=== PATIENT | male | born 1960 | race Caucasian/White ===

== ENCOUNTER 2016-12-08 15:27 | Inpatient (IN) | payer MEDICAID, OTHER ==
[~2016-12-08 15:27] MED LIST: ANCEF VIAL 1 GM ONE; DIPRIVAN VIAL ONE; EPHEDRINE SULFATE INJ ONE; LR 1000 ML IV 1,000 ML IV ONE; MORPHINE SULFATE INJ 4 MG ONE; NEOSTIGMINE INJ ONE; NORCURON INJ 10 MG VIAL ONE; NS 50 ML IV 50 ML IV ONE; QUELICIN (OR ANECTINE) ONE; REGLAN INJ 10 MG VIAL ONE; ROBINUL ONE; SUPRANE IN ONE; VERSED ONE; XYLOCAINE 2 % (PLAIN) ONE; ZOFRAN INJ 4 MG VIAL ONE
[2016-12-08] MEDS ORDERED: ANCEF VIAL 1 GM 1 GM in NS 50 ML IV + SPIKE MINIBAG* 50 ML IV ONE (15:30)
[2016-12-08] MEDS ORDERED: ZOFRAN INJ 4 MG VIAL IVP ONE (15:32)
[2016-12-08] MEDS ORDERED: MORPHINE SULFATE INJ 4 MG IVP ONE (15:32)
[2016-12-08] MEDS ORDERED: LR 1000 ML IV 1,000 ML IV ONE ×2 (15:32→17:48)
[2016-12-08 15:44] VITALS: BMI 18.1
--- NOTE | 2016-12-08 15:48 | RAD ---
HISTORY: Severe injury, blunt and penetrating trauma Study: Left hand three view Comparison: None Findings: There is a 4.9 by 0.5 centimeter radiopaque foreign body in the soft tissues overlying the distal 2n d metacarpal and base of the 3rd proximal phalanx. There is an open comminuted fracture of the dista l shaft of the 2nd metacarpal around which there appear to be scattered soft tissue foreign bodies. The 2nd digit is held in flexion at the MCP and PIP joints. Ligamentous integrity should be clinical ly evaluated. There is a comminuted intra-articular fracture of the shaft, diametaphyseal region, an d metaphysis of the 3rd proximal phalanx. There is marked dorsal soft tissue swelling overlying the wrist. Within this area there is some soft tissue gas likely related to a laceration. The carpal bon es appear intact. There appears to be a tiny avulsion of the tip of the ulnar-styloid. IMPRESSION: Comminuted fractures of the distal 2nd metacarpal and proximal and mid 3rd proximal phalanx Scattered tiny radiopaque foreign bodies in the soft tissues surrounding the 2nd and 3rd MCP joints with a 4.9 x 0.5 centimeter large linear soft tissue foreign body in the soft tissues dorsal to that area. Soft tissue swelling and laceration dorsally over the wrist Question of a tiny avulsion fracture versus foreign body adjacent to the tip of the ulnar-styloid Reported By:
[2016-12-08] MEDS ORDERED: DILAUDID INJ ONE ×2 (15:50→19:48)
[2016-12-08] MEDS ORDERED: DILAUDID INJ IVP ONE (15:50)
[2016-12-08] MEDS ORDERED: ADACEL TDaP IM ONE ×2 (15:50→15:54)
--- NOTE | 2016-12-08 16:32 | RAD ---
HISTORY: Preoperative evaluation Study: Single view chest Comparison: Chest CT 05/06/2016 Findings: Chronic sternotomy changes are present. The lungs are clear without consolidation, effusion or pneum othorax. The cardiac and mediastinal contours are within normal limits. The soft tissues are unrema rkable. IMPRESSION: 1. No acute cardiopulmonary abnormality. Reported By:
[2016-12-08 16:37] LABS: BASOPHILS % (AUTO) 0.6 % (0.2-1.0); EOSINOPHILS # (AUTO) 0.2 x10^3/uL (0.0-0.2); EOSINOPHILS % (AUTO) 3.5 % (0.9-2.9); HEMATOCRIT 31.7 % (42.0-54.0); HEMOGLOBIN 10.7 g/dL (13.5-18.0); LYMPHOCYTES # (AUTO) 1.4 X10^3/uL (1.3-2.9); LYMPHOCYTES % (AUTO) 25.7 % (21.0-51.0); MEAN CORPUSCULAR HEMOGLOBIN 33.2 pg (27.0-34.0); MEAN CORPUSCULAR HGB CONC 33.7 g/dL (33.0-35.0); MEAN CORPUSCULAR VOLUME 98.3 fL (80.0-100.0); MEAN PLATELET VOLUME 7.3 fL (7.4-11.0); MONOCYTES # (AUTO) 0.5 x10^3/uL (0.3-0.8); MONOCYTES % (AUTO) 8.1 % (0.0-13.0); NEUTROPHILS # (AUTO) 3.5 x10^3/uL (2.2-4.8); NEUTROPHILS % (AUTO) 62.1 % (42.0-75.0); PLATELET COUNT 226 X10^3/uL (150.0-450.0); RED BLOOD COUNT 3.22 X10^6/uL (4.7-6.0); WHITE BLOOD COUNT 5.6 X10^3/uL (3.6-10.0)
[2016-12-08] MEDS ORDERED: FENTANYL INJ 250 mcg ONE (16:38)
[2016-12-08 16:48] LABS: ALANINE AMINOTRANSFERASE 24 Units/L (12-78); ALBUMIN 3.7 g/dL (3.4-5.0); ALKALINE PHOSPHATASE 107 Units/L (46-116); ASPARTATE AMINO TRANSFERASE 28 Units/L (15-37); BLOOD UREA NITROGEN 24 mg/dL (7-18); CALCIUM 8.4 mg/dL (8.5-10.1); CARBON DIOXIDE 23.7 mmol/L (21-32); CHLORIDE 106 mmol/L (98-107); COR NA(FOR HYPERGLY) 140 mmol/L (136-145); GLUCOSE 118 mg/dL (65-99); SODIUM 140 mmol/L (136-145); TOTAL PROTEIN 7.5 g/dL (6.4-8.2); eGFR BLACK RACES > 60 (>60); eGFR NON BLACK RACES > 60 (>60)
[2016-12-08] MEDS ORDERED: PHENERGAN INJ 25 MG IVP PRN (16:48)
[2016-12-08] MEDS ORDERED: BENADRYL INJ 50 MG VIAL IVP PRN (16:48)
[2016-12-08] MEDS ORDERED: ZOFRAN INJ 4 MG VIAL IVP PRN (16:48)
[2016-12-08] MEDS ORDERED: REGLAN INJ 10 MG VIAL IVP PRN (16:48)
[2016-12-08] MEDS ORDERED: NS IRRIGATION 1000 ML 1,000 ML with BACITRACIN VIAL 50,000 UNT IR ONE ×2 (17:35)
[2016-12-08 17:39] LABS: ERYTHROCYTE SEDIMENTATION RATE 34 MM/HOUR (0-15)
[2016-12-08] MEDS ORDERED: NS IRRIGATION 3000 ML 3,000 ML with BACITRACIN VIAL 50,000 UNT IR ONE ×4 (17:40→17:50)
[2016-12-08] MEDS ORDERED: ANCEF VIAL 1 GM ONE (17:48)
[2016-12-08] MEDS ORDERED: NS 50 ML IV + SPIKE MINIBAG* 50 ML IV ONE (17:48)
[2016-12-08] MEDS ORDERED: NS IRRIGATION 1000 ML 1,000 ML IR ONE (17:55)
[2016-12-08] MEDS ORDERED: BACTROBAN OINT ONE (18:31)
[2016-12-08] MEDS ORDERED: HYDROGEN PEROXIDE 3% ONE (19:27)
[2016-12-08] MEDS: DILAUDID INJ IVP PRN ×4 (19:50→20:05)
[2016-12-08] MEDS: ANCEF VIAL 1 GM 1 GM in NS 50 ML IV + SPIKE MINIBAG* 50 ML IV SCH (21:33)
[2016-12-08] MEDS: LR 1000 ML IV 1,000 ML IV SCH (21:33)
[2016-12-08] MEDS: CLEOCIN 600 MG IV PREMIX 600 MG/50 ML BAG IV SCH ×2 (21:33→23:31)
[2016-12-08] MEDS: FLAGYL IV PREMIX 500 MG BAG 500 MG/100 ML BAG IV SCH ×2 (21:34→23:31)
[2016-12-08] MEDS: MORPHINE SULFATE INJ 2 MG IVP PRN (21:45)
[2016-12-09] MEDS: DILAUDID INJ IVP PRN ×4 (00:14→20:24)
[2016-12-09] MEDS: MORPHINE SULFATE INJ 2 MG IVP PRN ×2 (03:15→06:55)
[2016-12-09] MEDS: ANCEF VIAL 1 GM 1 GM in NS 50 ML IV + SPIKE MINIBAG* 50 ML IV SCH ×5 (03:16→20:22)
[2016-12-09] MEDS: FLAGYL IV PREMIX 500 MG BAG 500 MG/100 ML BAG IV SCH ×3 (06:11→22:52)
[2016-12-09] MEDS: CLEOCIN 600 MG IV PREMIX 600 MG/50 ML BAG IV SCH ×3 (06:11→22:52)
--- NOTE | 2016-12-09 06:47 | RAD ---
HISTORY: Follow up fracture Study: Left hand three views Comparison: December 08, 2016 3:36 p.m. Findings: The previously noted fracture of the 3rd proximal phalanx has undergone open reduction and internal fixation with 2 pins. Position and alignment is nearly anatomic. The previously noted fracture of th e 2nd metacarpal has undergone open reduction and internal fixation with 3 pins. Position and alignm ent is nearly anatomic. The previously noted soft tissue foreign bodies are no longer identified. Th e limb is splinted. IMPRESSION: Postoperative changes as above Reported By:
[2016-12-09] MEDS: ROXICODONE TAB 15 MG PO PRN ×2 (07:37→15:50)
[2016-12-09] MEDS: NORCO 10/325 TAB PO PRN (11:15)
[2016-12-09] MEDS: LR 1000 ML IV 1,000 ML IV SCH ×2 (11:16→23:19)
[2016-12-09] MEDS ORDERED: MORPHINE SULFATE INJ 2 MG IVP PRN (11:52)
--- NOTE | 2016-12-09 14:03 | PCM.PROG ---
Progress Note - Progress Note for Day of Date: 12/09/16 (POD 1) - Subjective Subjective: he is doing okay. He has been having issues with pain. Patient has a chronic opioid medication intake. Patient is currently on scheduled morphine, Dilaudid and also oxycodone. Denies any fever chills or rigors. Check x-rays were reviewed. It shows satisfactory alignment. The finger tip looked nice and vascular. Refill is good. The primary culture report is no growth. Currently he is on IV Ancef, clindamycin and better resolved. We'll plan on having him on PICC line tomorrow. I again discussed with him as well as his about possability osteomyelitis and need for long-term IV medications. We will also have him under Jam[facility] and Ifrah Carrillo, his regular primary care doctors. - Past Medical Family Social History Allergies: Allergies No Known Drug Allergy Allergy (Verified 11/12/12 16:27) - Vital Signs and I&O's Vital Signs: Temperature 98.0 F Pulse Rate [Right Radial] 57 Pulse Rate 63 Respiratory Rate 22 Blood Pressure [Right Arm] 150/65 Blood Pressure 124/68 O2 Sat by Pulse Oximetry 96 Intake and Output: Intake & Output 12/07/16 12/08/16 12/09/16 12/10/16 11:59 11:59 11:59 11:59 Intake Total 270 Output Total 5850 Balance -5580 - Physical Exam Oriented: Normal, Time, Person, Place, Not Oriented, Unable to test, Other Respiratory: Normal Cardiovascular: Normal Musculoskeletal: Hand (hand in splint. Good capillary refill of the middle and index finger. Still has some reduced sensation noted in those fingers. No soak H dressing seen.) Mood Description: Calm Speech Pattern: Clear, Appropriate - Laboratory and Diagnostics Result Diagrams: 12/08/16 16:25 12/08/16 16:25 Labs: 12/08/16 18:06 Hand - Left Gram Stain - Final 12/08/16 18:06 Hand - Left Wound Culture - Preliminary Laboratory WBC 5.6 X10^3/uL (3.6-10.0) 12/08/16 16:25 RBC 3.22 X10^6/uL (4.7-6.0) L 12/08/16 16:25 Hgb 10.7 g/dL (13.5-18.0) L 12/08/16 16:25 Hct 31.7 % (42.0-54.0) L 12/08/16 16:25 MCV 98.3 fL (80.0-100.0) 12/08/16 16:25 MCH 33.2 pg (27.0-34.0) 12/08/16 16:25 MCHC 33.7 g/dL (33.0-35.0) 12/08/16 16:25 RDW 13.0 % (11.6-16.5) 12/08/16 16:25 Plt Count 226 X10^3/uL (150.0-450.0) 12/08/16 16:25 MPV 7.3 fL (7.4-11.0) L 12/08/16 16:25 Neut % 62.1 % (42.0-75.0) 12/08/16 16:25 Lymph % 25.7 % (21.0-51.0) 12/08/16 16:25 Hayes % 8.1 % (0.0-13.0) 12/08/16 16:25 Eos % 3.5 % (0.9-2.9) H 12/08/16 16:25 Baso % 0.6 % (0.2-1.0) 12/08/16 16:25 Neut # 3.5 x10^3/uL (2.2-4.8) 12/08/16 16:25 Lymph # 1.4 X10^3/uL (1.3-2.9) 12/08/16 16:25 Hayes # 0.5 x10^3/uL (0.3-0.8) 12/08/16 16:25 Eos # 0.2 x10^3/uL (0.0-0.2) 12/08/16 16:25 Baso # 0.0 X10^3/uL (0.0-0.1) 12/08/16 16:25 Absolute Nucleated RBC 0.0 /100WBC 12/08/16 16:25 ESR 34 MM/HOUR (0-15) H 12/08/16 16:25 Sodium 140 mmol/L (136-145) 12/08/16 16:25 Corrected Sodium 140 mmol/L (136-145) 12/08/16 16:25 Potassium 4.2 mmol/L (3.5-5.1) 12/08/16 16:25 Chloride 106 mmol/L (98-107) 12/08/16 16:25 Carbon Dioxide 23.7 mmol/L (21-32) 12/08/16 16:25 BUN 24 mg/dL (7-18) H 12/08/16 16:25 Creatinine 1.10 mg/dL (0.70-1.30) 12/08/16 16:25 Est GFR (MDRD) Af Amer > 60 (>60) 12/08/16 16:25 Est GFR (MDRD) Non-Af > 60 (>60) 12/08/16 16:25 Glucose 118 mg/dL (65-99) H 12/08/16 16:25 Calcium 8.4 mg/dL (8.5-10.1) L 12/08/16 16:25 Corrected Calcium TNP 12/08/16 16:25 Total Bilirubin 0.30 mg/dL (0.2-1.0) 12/08/16 16:25 AST 28 Units/L (15-37) 12/08/16 16:25 ALT 24 Units/L (12-78) 12/08/16 16:25 Alkaline Phosphatase 107 Units/L (46-116) 12/08/16 16:25 C-Reactive Protein 1.10 mg/L (0-3.0) 12/08/16 16:25 Total Protein 7.5 g/dL (6.4-8.2) 12/08/16 16:25 Albumin 3.7 g/dL (3.4-5.0) 12/08/16 16:25 Globulin 3.8 g/dL (2.5-4.5) 12/08/16 16:25 Albumin/Globulin Ratio 1.0 Ratio (1.1-2.1) L 12/08/16 16:25 - Plan (1) Open fracture of hand Status: Acute Qualifiers: Encounter type: subsequent encounter Laterality: left Fracture healing: F Plan: we will continue with IV antibiotics. He will T: 10 tomorrow. I will change dressing tomorrow. We will keep an eye on his flaps as well as his wound for any signs of infection. We will continue with pain medications for his pain management. (2) Injury of extensor tendon of left hand Status: Acute Qualifiers: Encounter type: E
[2016-12-09] MEDS: MORPHINE SULFATE INJ 4 MG IVP PRN ×2 (17:27→23:20)
--- NOTE | 2016-12-09 18:26 | PCM.PROG ---
Progress Note - Progress Note for Day of Date: 12/09/16 - Subjective Subjective: 56 WM ADMITTED AFTER TRAUMATIC HAND INJURY WITH DR GRANT REPAIRING IN THE OR. PT HAS PMH OF HTN, COPD AND OA. PLAN TO CONTINUE WITH POST OPERATIVE WOUND CARE AND PAIN CONTROL, WILL RESUME HOME BP MEDICATION AND SLEEP MEDICATION - Past Medical Family Social History Past Med/Fam/Surg Hx: No changes since H&P Allergies: Allergies No Known Drug Allergy Allergy (Verified 11/12/12 16:27) - Review of Systems ROS: No change since H&P - Vital Signs and I&O's Vital Signs: Temperature 98.4 F Pulse Rate [Right Radial] 58 Respiratory Rate 18 Blood Pressure [Right Arm] 158/72 O2 Sat by Pulse Oximetry 96 Intake and Output: Intake & Output 12/07/16 12/08/16 12/09/16 12/10/16 11:59 11:59 11:59 11:59 Intake Total 270 1180 Output Total 750 Balance -480 1180 - Physical Exam Oriented: Normal, Time, Person, Place, Not Oriented, Unable to test, Other Respiratory: Normal Cardiovascular: Normal Musculoskeletal: Right, Hand (hand in splint. Good capillary refill of the middle and index finger. Still has some reduced sensation noted in those fingers. No soak H dressing seen.), Back:Thoracic, Back:Lumbar Mood Description: Calm Speech Pattern: Clear, Appropriate - Laboratory and Diagnostics Result Diagrams: 12/08/16 16:25 12/08/16 16:25 Labs: Laboratory WBC 5.6 X10^3/uL (3.6-10.0) 12/08/16 16:25 RBC 3.22 X10^6/uL (4.7-6.0) L 12/08/16 16:25 Hgb 10.7 g/dL (13.5-18.0) L 12/08/16 16:25 Hct 31.7 % (42.0-54.0) L 12/08/16 16:25 MCV 98.3 fL (80.0-100.0) 12/08/16 16:25 MCH 33.2 pg (27.0-34.0) 12/08/16 16:25 MCHC 33.7 g/dL (33.0-35.0) 12/08/16 16:25 RDW 13.0 % (11.6-16.5) 12/08/16 16:25 Plt Count 226 X10^3/uL (150.0-450.0) 12/08/16 16:25 MPV 7.3 fL (7.4-11.0) L 12/08/16 16:25 Neut % 62.1 % (42.0-75.0) 12/08/16 16:25 Lymph % 25.7 % (21.0-51.0) 12/08/16 16:25 [place] % 8.1 % (0.0-13.0) 12/08/16 16:25 Eos % 3.5 % (0.9-2.9) H 12/08/16 16:25 Baso % 0.6 % (0.2-1.0) 12/08/16 16:25 Neut # 3.5 x10^3/uL (2.2-4.8) 12/08/16 16:25 Lymph # 1.4 X10^3/uL (1.3-2.9) 12/08/16 16:25 [place] # 0.5 x10^3/uL (0.3-0.8) 12/08/16 16:25 Eos # 0.2 x10^3/uL (0.0-0.2) 12/08/16 16:25 Baso # 0.0 X10^3/uL (0.0-0.1) 12/08/16 16:25 Absolute Nucleated RBC 0.0 /100WBC 12/08/16 16:25 ESR 34 MM/HOUR (0-15) H 12/08/16 16:25 Sodium 140 mmol/L (136-145) 12/08/16 16:25 Corrected Sodium 140 mmol/L (136-145) 12/08/16 16:25 Potassium 4.2 mmol/L (3.5-5.1) 12/08/16 16:25 Chloride 106 mmol/L (98-107) 12/08/16 16:25 Carbon Dioxide 23.7 mmol/L (21-32) 12/08/16 16:25 BUN 24 mg/dL (7-18) H 12/08/16 16:25 Creatinine 1.10 mg/dL (0.70-1.30) 12/08/16 16:25 Est GFR (MDRD) Af Amer > 60 (>60) 12/08/16 16:25 Est GFR (MDRD) Non-Af > 60 (>60) 12/08/16 16:25 Glucose 118 mg/dL (65-99) H 12/08/16 16:25 Calcium 8.4 mg/dL (8.5-10.1) L 12/08/16 16:25 Corrected Calcium TNP 12/08/16 16:25 Total Bilirubin 0.30 mg/dL (0.2-1.0) 12/08/16 16:25 AST 28 Units/L (15-37) 12/08/16 16:25 ALT 24 Units/L (12-78) 12/08/16 16:25 Alkaline Phosphatase 107 Units/L (46-116) 12/08/16 16:25 C-Reactive Protein 1.10 mg/L (0-3.0) 12/08/16 16:25 Total Protein 7.5 g/dL (6.4-8.2) 12/08/16 16:25 Albumin 3.7 g/dL (3.4-5.0) 12/08/16 16:25 Globulin 3.8 g/dL (2.5-4.5) 12/08/16 16:25 Albumin/Globulin Ratio 1.0 Ratio (1.1-2.1) L 12/08/16 16:25 - Plan (1) Hypertension Status: Acute Qualifiers: Hypertension type: H Plan: RESUME HOME MEDS, MONITOR BP (2) Osteoarthritis Status: Acute Qualifiers: Osteoarthritis location: O Osteoarthritis type: O Spinal region: S Spinal osteoarthritis complication: S Laterality: L Plan: CURRENTLY ON IV PAIN MEDICATION POST OP. WILL HOLD PO HOME PAIN MEDS AT THIS TIME. MONITOR PAIN (3) Open fracture of hand Status: Acute Qualifiers: Encounter type: subsequent encounter Laterality: left Fracture healing: F Plan: CONTINUE DR STOVER PLAN OF CARE
[2016-12-09] MEDS ORDERED: DESYREL PO PRN (19:09)
[2016-12-09] MEDS: NICODERM PATCH 21 MG/24 HR TD SCH (19:30)
[2016-12-09] MEDS: LOPRESSOR TAB 25 MG PO SCH (20:24)
[2016-12-09] MEDS: ZOCOR TAB 40 MG PO SCH (20:24)
[2016-12-09] MEDS: ZESTRIL TAB 10 MG PO SCH (20:34)
[2016-12-09] MEDS ORDERED: [UNRECOGNIZED DRUG - OTHER] PO SCH (21:00)
[2016-12-10] MEDS: ROXICODONE TAB 15 MG PO PRN ×2 (01:12→11:08)
[2016-12-10] MEDS: ANCEF VIAL 1 GM 1 GM in NS 50 ML IV + SPIKE MINIBAG* 50 ML IV SCH ×4 (03:12→20:44)
[2016-12-10] MEDS: DILAUDID INJ IVP PRN ×2 (03:13→14:07)
[2016-12-10] MEDS: CLEOCIN 600 MG IV PREMIX 600 MG/50 ML BAG IV SCH ×3 (05:13→21:05)
[2016-12-10] MEDS: FLAGYL IV PREMIX 500 MG BAG 500 MG/100 ML BAG IV SCH ×3 (05:13→21:05)
[2016-12-10] MEDS: MORPHINE SULFATE INJ 4 MG IVP PRN ×2 (05:14→13:03)
[2016-12-10] MEDS: LOPRESSOR TAB 25 MG PO SCH ×2 (08:23→20:44)
[2016-12-10] MEDS: NICODERM PATCH 21 MG/24 HR TD SCH (08:23)
[2016-12-10] MEDS: ZESTRIL TAB 10 MG PO SCH (08:24)
[2016-12-10] MEDS: ASPIRIN EC 81 MG PO SCH (08:24)
[2016-12-10] MEDS ORDERED: XYLOCAINE 1 % (PLAIN) ONE (09:19)
[2016-12-10] MEDS ORDERED: BACTROBAN OINT TOP ONE (09:54)
[2016-12-10] MEDS: NORCO 10/325 TAB PO PRN (10:07)
--- NOTE | 2016-12-10 10:11 | DR.UPDATE ---
H&P Update History and Physical Update: History and Physical reviewed and patient examined. Changes noted: NO Yes with the following:agree with h&p from dr kirkpatrick and will place PICC. Procedures (ALL) - Central Line Placement PCM.CLCO: written consent Time out performed: Yes Patient placed pm monitor/pulse ox: Yes MD prep: mask, gown, gloves, other Centrial line prep: chlorhexidine scrub, sterile drapes applied Local anesthsia used: lidocane 1% Ultrasound used for placement: Yes Central line lumen ininserted: double Post procedure: good blood return, all ports aspirated, flushed,capped, sterile dressing applied Post procedure xray: tip oc catheter in good position Patient tolerated procedure: Yes Complications: none
[2016-12-10 10:23] LABS: BASOPHILS % (AUTO) 0.2 % (0.2-1.0); EOSINOPHILS % (AUTO) 0.3 % (0.9-2.9); HEMOGLOBIN 9.4 g/dL (13.5-18.0); LYMPHOCYTES # (AUTO) 0.6 X10^3/uL (1.3-2.9); MEAN CORPUSCULAR HEMOGLOBIN 34.1 pg (27.0-34.0); MEAN CORPUSCULAR HGB CONC 34.8 g/dL (33.0-35.0); MEAN PLATELET VOLUME 7.8 fL (7.4-11.0); MONOCYTES # (AUTO) 0.7 x10^3/uL (0.3-0.8); MONOCYTES % (AUTO) 8.3 % (0.0-13.0); NEUTROPHILS # (AUTO) 6.6 x10^3/uL (2.2-4.8); NEUTROPHILS % (AUTO) 83.2 % (42.0-75.0); PLATELET COUNT 184 X10^3/uL (150.0-450.0); RED BLOOD COUNT 2.75 X10^6/uL (4.7-6.0); RED CELL DISTRIBUTION WIDTH 13.1 % (11.6-16.5)
--- NOTE | 2016-12-10 10:40 | RAD ---
HISTORY: PICC placement Study: Chest one view Comparison: December 08, 2016 Findings: There is a right-sided PICC line present with its tip in the superior vena cava. The patient is stat us post median sternotomy and CABG. The heart is within normal limits in size. The lungs are mildly hyperinflated but clear. The bony thorax is unremarkable. IMPRESSION: Right PICC tip superior vena cava, no pneumothorax. Lungs hyperinflated but clear Reported By:
[2016-12-10 11:02] LABS: ALANINE AMINOTRANSFERASE 19 Units/L (12-78); ALBUMIN 3.1 g/dL (3.4-5.0); ALKALINE PHOSPHATASE 105 Units/L (46-116); ASPARTATE AMINO TRANSFERASE 24 Units/L (15-37); BLOOD UREA NITROGEN 8 mg/dL (7-18); CALCIUM 8.3 mg/dL (8.5-10.1); CARBON DIOXIDE 27.8 mmol/L (21-32); CHLORIDE 103 mmol/L (98-107); COR NA(FOR HYPERGLY) 139 mmol/L (136-145); CREATININE 0.79 mg/dL (0.70-1.30); GLUCOSE 141 mg/dL (65-99); SODIUM 138 mmol/L (136-145); TOTAL PROTEIN 6.8 g/dL (6.4-8.2); eGFR BLACK RACES > 60 (>60); eGFR NON BLACK RACES > 60 (>60)
--- NOTE | 2016-12-10 11:14 | RAD ---
HISTORY: Post PICC line insertion #2. Study: Chest one view Comparison: December 10, 2016 at 10:32 a.m. Findings: The trachea is midline. The cardiac silhouette is unremarkable. Median sternotomy wires are again n oted. There has been interval adjustment of right-sided PICC line catheter , the tip of which now pr ojects over the right atrium, approximately 4.5 cm below the cavoatrial junction. The lungs are aura r without focal infiltrate or effusion. The bony thorax is unremarkable. IMPRESSION: 1. Right-sided PICC line catheter in place, the tip of which projects over the right atrium approxi mately 4.5 cm above the cavoatrial junction. Reported By:
[2016-12-10 12:05] LABS: ERYTHROCYTE SEDIMENTATION RATE 47 MM/HOUR (0-15)
[2016-12-10] MEDS ORDERED: STERILE WATER IRRIGATION IR ONE (13:45)
[2016-12-10] MEDS ORDERED: PHARMACY CONSULT - DOSE _____ XX SCH (15:00)
--- NOTE | 2016-12-10 15:18 | PCM.PROG ---
Progress Note - Progress Note for Day of Date: 12/10/16 (postoperative day 2) - Subjective Subjective: postoperative day 2. His pain seemed to be better controlled at this time. He says Roxicodone helps him a lot. He is taking 20 mg 3 times a day. He also gets morphine and Dilaudid for breakthrough pain. Vital stable. Afebrile. No complaints of chills and rigors. Currently on IV antibiotics, Ancef, metronidazole, ciprofloxacin. Culture no growth at day 2. His labs show that the white count, ESR are up trending at this time. wound was examined today. No redness noted. No induration noted. No discharge noted. Sterile dressing was reapplied. He did get a PICC line today. Patient wants to know whether he can go home. - Past Medical Family Social History Past Med/Fam/Surg Hx: No changes since H&P Allergies: Allergies No Known Drug Allergy Allergy (Verified 11/12/12 16:27) - Review of Systems ROS: No change since H&P - Vital Signs and I&O's Vital Signs: Temperature 98.3 F Pulse Rate [Right Radial] 58 Respiratory Rate 18 Blood Pressure [Right Arm] 151/72 O2 Sat by Pulse Oximetry 93 Intake and Output: Intake & Output 12/08/16 12/09/16 12/10/16 12/11/16 11:59 11:59 11:59 11:59 Intake Total 270 2877 480 Output Total 750 Balance -480 2877 480 - Physical Exam Oriented: Normal, Time, Person, Place, Not Oriented, Unable to test, Other Respiratory: Normal Cardiovascular: Normal Skin: Wound (no redness, induration, or discharge noted on the surgical wound.) Musculoskeletal: Right, Hand (Refill good. Sensation still used but intact. He is able to move the thumb and ring finger and little finger.), Back:Thoracic , Back:Lumbar Mood Description: Calm Speech Pattern: Clear, Appropriate - Laboratory and Diagnostics Result Diagrams: 12/10/16 10:05 12/10/16 10:05 Labs: Laboratory WBC 8.0 X10^3/uL (3.6-10.0) 12/10/16 10:05 RBC 2.75 X10^6/uL (4.7-6.0) L 12/10/16 10:05 Hgb 9.4 g/dL (13.5-18.0) L 12/10/16 10:05 Hct 27.0 % (42.0-54.0) L 12/10/16 10:05 MCV 98.0 fL (80.0-100.0) 12/10/16 10:05 MCH 34.1 pg (27.0-34.0) H 12/10/16 10:05 MCHC 34.8 g/dL (33.0-35.0) 12/10/16 10:05 RDW 13.1 % (11.6-16.5) 12/10/16 10:05 Plt Count 184 X10^3/uL (150.0-450.0) 12/10/16 10:05 MPV 7.8 fL (7.4-11.0) 12/10/16 10:05 Neut % 83.2 % (42.0-75.0) H 12/10/16 10:05 Lymph % 8.0 % (21.0-51.0) L 12/10/16 10:05 Gray % 8.3 % (0.0-13.0) 12/10/16 10:05 Eos % 0.3 % (0.9-2.9) L 12/10/16 10:05 Baso % 0.2 % (0.2-1.0) 12/10/16 10:05 Neut # 6.6 x10^3/uL (2.2-4.8) H 12/10/16 10:05 Lymph # 0.6 X10^3/uL (1.3-2.9) L 12/10/16 10:05 Gray # 0.7 x10^3/uL (0.3-0.8) 12/10/16 10:05 Eos # 0.0 x10^3/uL (0.0-0.2) 12/10/16 10:05 Baso # 0.0 X10^3/uL (0.0-0.1) 12/10/16 10:05 Absolute Nucleated RBC 0.0 /100WBC 12/10/16 10:05 ESR 47 MM/HOUR (0-15) H 12/10/16 10:05 Sodium 138 mmol/L (136-145) 12/10/16 10:05 Corrected Sodium 139 mmol/L (136-145) 12/10/16 10:05 Potassium 3.9 mmol/L (3.5-5.1) 12/10/16 10:05 Chloride 103 mmol/L (98-107) 12/10/16 10:05 Carbon Dioxide 27.8 mmol/L (21-32) 12/10/16 10:05 BUN 8 mg/dL (7-18) 12/10/16 10:05 Creatinine 0.79 mg/dL (0.70-1.30) 12/10/16 10:05 Est GFR (MDRD) Af Amer > 60 (>60) 12/10/16 10:05 Est GFR (MDRD) Non-Af > 60 (>60) 12/10/16 10:05 Glucose 141 mg/dL (65-99) H 12/10/16 10:05 Calcium 8.3 mg/dL (8.5-10.1) L 12/10/16 10:05 Corrected Calcium 9.0 mg/dL (8.5-10.1) 12/10/16 10:05 Total Bilirubin 0.30 mg/dL (0.2-1.0) 12/10/16 10:05 AST 24 Units/L (15-37) 12/10/16 10:05 ALT 19 Units/L (12-78) 12/10/16 10:05 Alkaline Phosphatase 105 Units/L (46-116) 12/10/16 10:05 C-Reactive Protein 49.20 mg/L (0-3.0) H 12/10/16 10:05 Total Protein 6.8 g/dL (6.4-8.2) 12/10/16 10:05 Albumin 3.1 g/dL (3.4-5.0) L 12/10/16 10:05 Globulin 3.7 g/dL (2.5-4.5) 12/10/16 10:05 Albumin/Globulin Ratio 0.8 Ratio (1.1-2.1) L 12/10/16 10:05 - Plan (1) Open fracture of hand Status: Acute Qualifiers: Encounter type: initial encounter Laterality: left Fracture healing: F Qualified Code(s): S62.92XB - Unspecified fracture of left wrist and hand, initial encounter for open fracture Plan: we will keep him only on PO mouth pain meds anticipating his discharge tomorrow. We will also initiate gabapentin for him. I discussed in detail with him as well as his that he might need a repeat debridement with or without removal of all implants in case his labs or clinically he doesn't do well. He is currently on 3 antibiotics. He has PICC line. Tomorrow depending on the final culture and sensitivity we will place him on a definite antibiotic. Explained to them that even with repeated debridement and long- term IV antibiotics possibly a chronic osteoarthritis is high in injury like this which was done by "farm injury. (2) Injury of extensor tendon of left hand Status: Acute Qualifiers: Encounter type: E
[2016-12-10] MEDS ORDERED: DILAUDID PO ONE (17:05)
[2016-12-10] MEDS: DILAUDID PO PRN (17:06)
--- NOTE | 2016-12-10 18:02 | PCM.PROG ---
Progress Note - Progress Note for Day of Date: 12/10/16 - Subjective Subjective: postoperative day 2. His pain seemed to be better controlled at this time. He says Roxicodone helps him a lot. He is taking 20 mg 3 times a day. He also gets morphine and Dilaudid for breakthrough pain. Vital stable. Afebrile. No complaints of chills and rigors. Currently on IV antibiotics, Ancef, metronidazole, ciprofloxacin. Culture no growth at day 2. His labs show that the white count, ESR are up trending at this time. wound was examined today. No redness noted. No induration noted. No discharge noted. Sterile dressing was reapplied per Dr Newman. He did get a PICC line today. - Past Medical Family Social History Past Med/Fam/Surg Hx: No changes since H&P Allergies: Allergies No Known Drug Allergy Allergy (Verified 11/12/12 16:27) - Review of Systems ROS: No change since H&P - Vital Signs and I&O's Vital Signs: Temperature 97.9 F Pulse Rate [Right Radial] 60 Respiratory Rate 18 Blood Pressure [Right Arm] 139/71 O2 Sat by Pulse Oximetry 94 Intake and Output: Intake & Output 12/08/16 12/09/16 12/10/16 12/11/16 11:59 11:59 11:59 11:59 Intake Total 270 2877 480 Output Total 750 Balance -480 2877 480 - Physical Exam Oriented: Normal, Time, Person, Place, Not Oriented, Unable to test, Other Respiratory: Normal Cardiovascular: Normal Skin: Wound (no redness, induration, or discharge noted on the surgical wound.) Musculoskeletal: Right, Hand (Refill good. Sensation still used but intact. He is able to move the thumb and ring finger and little finger.), Back:Thoracic , Back:Lumbar Mood Description: Calm Speech Pattern: Clear, Appropriate - Laboratory and Diagnostics Result Diagrams: 12/10/16 10:05 12/10/16 10:05 Labs: Laboratory WBC 8.0 X10^3/uL (3.6-10.0) 12/10/16 10:05 RBC 2.75 X10^6/uL (4.7-6.0) L 12/10/16 10:05 Hgb 9.4 g/dL (13.5-18.0) L 12/10/16 10:05 Hct 27.0 % (42.0-54.0) L 12/10/16 10:05 MCV 98.0 fL (80.0-100.0) 12/10/16 10:05 MCH 34.1 pg (27.0-34.0) H 12/10/16 10:05 MCHC 34.8 g/dL (33.0-35.0) 12/10/16 10:05 RDW 13.1 % (11.6-16.5) 12/10/16 10:05 Plt Count 184 X10^3/uL (150.0-450.0) 12/10/16 10:05 MPV 7.8 fL (7.4-11.0) 12/10/16 10:05 Neut % 83.2 % (42.0-75.0) H 12/10/16 10:05 Lymph % 8.0 % (21.0-51.0) L 12/10/16 10:05 Moore % 8.3 % (0.0-13.0) 12/10/16 10:05 Eos % 0.3 % (0.9-2.9) L 12/10/16 10:05 Baso % 0.2 % (0.2-1.0) 12/10/16 10:05 Neut # 6.6 x10^3/uL (2.2-4.8) H 12/10/16 10:05 Lymph # 0.6 X10^3/uL (1.3-2.9) L 12/10/16 10:05 Moore # 0.7 x10^3/uL (0.3-0.8) 12/10/16 10:05 Eos # 0.0 x10^3/uL (0.0-0.2) 12/10/16 10:05 Baso # 0.0 X10^3/uL (0.0-0.1) 12/10/16 10:05 Absolute Nucleated RBC 0.0 /100WBC 12/10/16 10:05 ESR 47 MM/HOUR (0-15) H 12/10/16 10:05 Sodium 138 mmol/L (136-145) 12/10/16 10:05 Corrected Sodium 139 mmol/L (136-145) 12/10/16 10:05 Potassium 3.9 mmol/L (3.5-5.1) 12/10/16 10:05 Chloride 103 mmol/L (98-107) 12/10/16 10:05 Carbon Dioxide 27.8 mmol/L (21-32) 12/10/16 10:05 BUN 8 mg/dL (7-18) 12/10/16 10:05 Creatinine 0.79 mg/dL (0.70-1.30) 12/10/16 10:05 Est GFR (MDRD) Af Amer > 60 (>60) 12/10/16 10:05 Est GFR (MDRD) Non-Af > 60 (>60) 12/10/16 10:05 Glucose 141 mg/dL (65-99) H 12/10/16 10:05 Calcium 8.3 mg/dL (8.5-10.1) L 12/10/16 10:05 Corrected Calcium 9.0 mg/dL (8.5-10.1) 12/10/16 10:05 Total Bilirubin 0.30 mg/dL (0.2-1.0) 12/10/16 10:05 AST 24 Units/L (15-37) 12/10/16 10:05 ALT 19 Units/L (12-78) 12/10/16 10:05 Alkaline Phosphatase 105 Units/L (46-116) 12/10/16 10:05 C-Reactive Protein 49.20 mg/L (0-3.0) H 12/10/16 10:05 Total Protein 6.8 g/dL (6.4-8.2) 12/10/16 10:05 Albumin 3.1 g/dL (3.4-5.0) L 12/10/16 10:05 Globulin 3.7 g/dL (2.5-4.5) 12/10/16 10:05 Albumin/Globulin Ratio 0.8 Ratio (1.1-2.1) L 12/10/16 10:05 - Plan (1) Hypertension Status: Acute Qualifiers: Hypertension type: H Plan: RESUME HOME MEDS, MONITOR BP (2) Osteoarthritis Status: Acute Qualifiers: Osteoarthritis location: O Osteoarthritis type: O Spinal region: S Spinal osteoarthritis complication: S Laterality: L Plan: CURRENTLY ON IV PAIN MEDICATION POST OP. WILL HOLD PO HOME PAIN MEDS AT THIS TIME, DISCUSSED WITH [facility]. MONITOR PAIN (3) Open fracture of hand Status: Acute Qualifiers: Encounter type: initial encounter Laterality: left Fracture healing: F Qualified Code(s): S62.92XB - Unspecified fracture of left wrist and hand, initial encounter for open fracture Plan: we will keep him only on PO mouth pain meds anticipating his discharge tomorrow. We will also initiate gabapentin for him. I discussed in detail with him as well as his that he might need a repeat debridement with or without removal of all implants in case his labs or clinically he doesn't do well. He is currently on 3 antibiotics. He has PICC line. Tomorrow depending on the final culture and sensitivity we will place him on a definite antibiotic. Explained to them that even with repeated debridement and long- term IV antibiotics possibly a chronic osteoarthritis is high in injury like this which was done by "farm injury.
[2016-12-10] MEDS: ROXICODONE TAB 15 MG PO SCH ×2 (19:25→23:55)
[2016-12-10] MEDS: ZOCOR TAB 40 MG PO SCH (20:44)
[2016-12-10] MEDS: LR 1000 ML IV 1,000 ML IV SCH (20:44)
[2016-12-10] MEDS: LYRICA CAP 75 MG PO SCH (20:44)
[2016-12-11] MEDS ORDERED: DILAUDID PO ONE ×3 (02:41→15:52)
[2016-12-11] MEDS: DILAUDID PO PRN ×3 (02:43→15:51)
[2016-12-11] MEDS: ANCEF VIAL 1 GM 1 GM in NS 50 ML IV + SPIKE MINIBAG* 50 ML IV SCH ×3 (02:44→14:07)
[2016-12-11 05:13] LABS: BLOOD UREA NITROGEN 11 mg/dL (7-18); CALCIUM 8.2 mg/dL (8.5-10.1); CARBON DIOXIDE 26.3 mmol/L (21-32); CHLORIDE 105 mmol/L (98-107); CREATININE 0.71 mg/dL (0.70-1.30); GLUCOSE 102 mg/dL (65-99); SODIUM 140 mmol/L (136-145); eGFR BLACK RACES > 60 (>60); eGFR NON BLACK RACES > 60 (>60)
[2016-12-11 05:25] LABS: BASOPHILS % (AUTO) 0.3 % (0.2-1.0); EOSINOPHILS # (AUTO) 0.1 x10^3/uL (0.0-0.2); EOSINOPHILS % (AUTO) 1.4 % (0.9-2.9); HEMATOCRIT 26.8 % (42.0-54.0); LYMPHOCYTES % (AUTO) 14.4 % (21.0-51.0); MEAN CORPUSCULAR HEMOGLOBIN 33.5 pg (27.0-34.0); MEAN CORPUSCULAR HGB CONC 33.7 g/dL (33.0-35.0); MEAN CORPUSCULAR VOLUME 99.5 fL (80.0-100.0); MEAN PLATELET VOLUME 8.1 fL (7.4-11.0); MONOCYTES # (AUTO) 0.6 x10^3/uL (0.3-0.8); MONOCYTES % (AUTO) 9.2 % (0.0-13.0); NEUTROPHILS # (AUTO) 5.2 x10^3/uL (2.2-4.8); NEUTROPHILS % (AUTO) 74.7 % (42.0-75.0); PLATELET COUNT 186 X10^3/uL (150.0-450.0); RED CELL DISTRIBUTION WIDTH 13.2 % (11.6-16.5)
[2016-12-11 05:54] LABS: ERYTHROCYTE SEDIMENTATION RATE 50 MM/HOUR (0-15)
[2016-12-11] MEDS: CLEOCIN 600 MG IV PREMIX 600 MG/50 ML BAG IV SCH ×2 (06:02→13:04)
[2016-12-11] MEDS: FLAGYL IV PREMIX 500 MG BAG 500 MG/100 ML BAG IV SCH ×2 (06:02→13:05)
[2016-12-11] MEDS: ROXICODONE TAB 15 MG PO SCH ×2 (06:02→14:07)
[2016-12-11] MEDS: LR 1000 ML IV 1,000 ML IV SCH (06:06)
[2016-12-11] MEDS: NICODERM PATCH 21 MG/24 HR TD SCH (08:28)
[2016-12-11] MEDS: LYRICA CAP 75 MG PO SCH (08:29)
[2016-12-11] MEDS: ZESTRIL TAB 10 MG PO SCH (08:29)
[2016-12-11] MEDS: LOPRESSOR TAB 25 MG PO SCH (08:29)
[2016-12-11] MEDS: ASPIRIN EC 81 MG PO SCH (08:30)
[2016-12-11] MEDS: NORCO 10/325 TAB PO PRN ×2 (10:59→15:10)
--- NOTE | 2016-12-11 15:33 | PCM.PROG ---
Progress Note - Progress Note for Day of Date: 12/11/16 (postop day 3) - Subjective Subjective: postoperative day 3. his pain seemed to be very well controlled this time. He reports he had a very good sleep S tonight. He has not had any IV narcotic since yesterday. His pain has been controlled only with oral pain meds at this time. Vital stable. Afebrile. No complaints of chills and rigors. Currently on IV antibiotics, Ancef, metronidazole, ciprofloxacin. Culture no growth at day 3. His labs show that the white count, ESR are down trending at this time. we'll plan on sending him home today. We will get his antibiotic filled out so that he refuses number of times he has to come to the hospital for perioperative antibiotic. We'll also get an home health involved. Instructions given to him regarding the pain meds and antibiotic usage. We' ll repeat his labs for the next 3 days. He will contact the office on Thursday. - Past Medical Family Social History Past Med/Fam/Surg Hx: No changes since H&P Allergies: Allergies No Known Drug Allergy Allergy (Verified 11/12/12 16:27) - Review of Systems ROS: No change since H&P - Vital Signs and I&O's Vital Signs: Temperature 98.5 F Pulse Rate [Right Radial] 52 Respiratory Rate 20 Blood Pressure [Right Arm] 151/70 O2 Sat by Pulse Oximetry 94 Intake and Output: Intake & Output 12/09/16 12/10/16 12/11/16 12/12/16 11:59 11:59 11:59 11:59 Intake Total 270 2877 2315 720 Output Total 750 Balance -480 2877 2315 720 - Physical Exam Oriented: Normal, Time, Person, Place, Not Oriented, Unable to test, Other Respiratory: Normal Cardiovascular: Normal Skin: Wound (no redness, induration, or discharge noted on the surgical wound.) Musculoskeletal: Right, Hand (Refill good. Sensation still used but intact. He is able to move the thumb and ring finger and little finger.), Back:Thoracic , Back:Lumbar Mood Description: Calm Speech Pattern: Clear, Appropriate - Laboratory and Diagnostics Result Diagrams: 12/11/16 03:35 12/11/16 03:35 Labs: Laboratory WBC 7.0 X10^3/uL (3.6-10.0) 12/11/16 03:35 RBC 2.70 X10^6/uL (4.7-6.0) L 12/11/16 03:35 Hgb 9.0 g/dL (13.5-18.0) L 12/11/16 03:35 Hct 26.8 % (42.0-54.0) L 12/11/16 03:35 MCV 99.5 fL (80.0-100.0) 12/11/16 03:35 MCH 33.5 pg (27.0-34.0) 12/11/16 03:35 MCHC 33.7 g/dL (33.0-35.0) 12/11/16 03:35 RDW 13.2 % (11.6-16.5) 12/11/16 03:35 Plt Count 186 X10^3/uL (150.0-450.0) 12/11/16 03:35 MPV 8.1 fL (7.4-11.0) 12/11/16 03:35 Neut % 74.7 % (42.0-75.0) 12/11/16 03:35 Lymph % 14.4 % (21.0-51.0) L 12/11/16 03:35 [place] % 9.2 % (0.0-13.0) 12/11/16 03:35 Eos % 1.4 % (0.9-2.9) 12/11/16 03:35 Baso % 0.3 % (0.2-1.0) 12/11/16 03:35 Neut # 5.2 x10^3/uL (2.2-4.8) H 12/11/16 03:35 Lymph # 1.0 X10^3/uL (1.3-2.9) L 12/11/16 03:35 [place] # 0.6 x10^3/uL (0.3-0.8) 12/11/16 03:35 Eos # 0.1 x10^3/uL (0.0-0.2) 12/11/16 03:35 Baso # 0.0 X10^3/uL (0.0-0.1) 12/11/16 03:35 Absolute Nucleated RBC 0.1 /100WBC 12/11/16 03:35 ESR 50 MM/HOUR (0-15) H 12/11/16 03:35 Sodium 140 mmol/L (136-145) 12/11/16 03:35 Corrected Sodium TNP 12/11/16 03:35 Potassium 4.0 mmol/L (3.5-5.1) 12/11/16 03:35 Chloride 105 mmol/L (98-107) 12/11/16 03:35 Carbon Dioxide 26.3 mmol/L (21-32) 12/11/16 03:35 BUN 11 mg/dL (7-18) 12/11/16 03:35 Creatinine 0.71 mg/dL (0.70-1.30) 12/11/16 03:35 Est GFR (MDRD) Af Amer > 60 (>60) 12/11/16 03:35 Est GFR (MDRD) Non-Af > 60 (>60) 12/11/16 03:35 Glucose 102 mg/dL (65-99) H 12/11/16 03:35 Calcium 8.2 mg/dL (8.5-10.1) L 12/11/16 03:35 Corrected Calcium 9.0 mg/dL (8.5-10.1) 12/10/16 10:05 Total Bilirubin 0.30 mg/dL (0.2-1.0) 12/10/16 10:05 AST 24 Units/L (15-37) 12/10/16 10:05 ALT 19 Units/L (12-78) 12/10/16 10:05 Alkaline Phosphatase 105 Units/L (46-116) 12/10/16 10:05 C-Reactive Protein 49.20 mg/L (0-3.0) H 12/10/16 10:05 Total Protein 6.8 g/dL (6.4-8.2) 12/10/16 10:05 Albumin 3.1 g/dL (3.4-5.0) L 12/10/16 10:05 Globulin 3.7 g/dL (2.5-4.5) 12/10/16 10:05 Albumin/Globulin Ratio 0.8 Ratio (1.1-2.1) L 12/10/16 10:05 - Plan (1) Open fracture of hand Status: Acute Qualifiers: Encounter type: initial encounter Laterality: left Fracture healing: F Qualified Code(s): S62.92XB - Unspecified fracture of left wrist and hand, initial encounter for open fracture Plan: continue with the oxycodone, Lyrica, Dilaudid for breakthrough pain. Continue with IV antibiotics as prescribed. No extrinsic dressing. Get regular labs. Return to the office on Thursday. (2) Injury of extensor tendon of left hand Status: Acute Qualifiers: Encounter type: E
[2016-12-11 16:07] VITALS: BP 137/65
[2016-12-11] MEDS ORDERED: [UNRECOGNIZED DRUG - OTHER] PO SCH (21:00)
[2016-12-11] MEDS ORDERED: NIASPAN ER TAB 500 MG PO SCH (21:00)
[2016-12-12] MEDS ORDERED: FLAGYL IV PREMIX 500 MG BAG 500 MG/100 ML BAG IV SCH (08:00)
[2016-12-12] MEDS ORDERED: CLEOCIN 600 MG IV PREMIX 600 MG/50 ML BAG IV SCH (08:00)
[2016-12-12] MEDS ORDERED: ROCEPHIN VIAL 2 GM 2 GM in NS 50 ML IV + SPIKE MINIBAG* 50 ML IV SCH (09:00)
== END 2016-12-11 16:25 | disposition home or self-care (01) | DRG 513 ==
LOC: SURG1 15:27 → MED/SURG 20:30 → SURG1 20:40 → MED/SURG 20:40 → SURG1 12-09 15:13 → MED/SURG 12-09 15:13
PROVIDERS: ADMIT Internal Medicine; ATTEND Orthopaedic Surgery
PROC: 0LQ80ZZ Repair Left Hand Tendon, Open Approach (ICD-10-PCS; 2016-12-08)
PROC: 3E0334Z Introduction of Serum, Toxoid and Vaccine into Peripheral Vein, Percutaneous Approach (ICD-10-PCS; 2016-12-08)
PROC: 0PSV04Z Reposition Left Finger Phalanx with Internal Fixation Device, Open Approach (ICD-10-PCS; principal; 2016-12-08 16:30)
PROC: 0PSQ04Z Reposition Left Metacarpal with Internal Fixation Device, Open Approach (ICD-10-PCS; 2016-12-08 16:30)
PROC: 02HV33Z Insertion of Infusion Device into Superior Vena Cava, Percutaneous Approach (ICD-10-PCS; 2016-12-10)
DX: S62.39 Other fracture of other metacarpal bone (principal); S62.618 Displaced fracture of proximal phalanx of other finger; I10 Essential (primary) hypertension; Z23 Encounter for immunization; Y92.89 Other specified places as the place of occurrence of the external cause; W31.2XXA Contact with powered woodworking and forming machines, initial encounter; M15.8 Other polyosteoarthritis; I87.2 Venous insufficiency (chronic) (peripheral); R94.31 Abnormal electrocardiogram [ECG] [EKG]
CPT/HCPCS: 29125; 36415; 71010; 73130; 76000; 80048; 80053; 85025; 85652; 86140; 87070; 87075; 87205; 90471; 93005; 93010; 96365; 96374; 96375; 99284; A4216; A4217; A4222; S0030; J0077; J0330; J0690; J1170; J2001; J2250; J2270; J2405; J2710; J2765; J3010; J3490; J7120

== ENCOUNTER → 2016-12-24 | Outpatient (CLI) | payer OTHER ==
[2016-12-13 21:28] VITALS: BP 128/61
--- NOTE | 2016-12-24 14:54 | RAD ---
HISTORY: Follow up fracture Study: Left hand three view Comparison: December 08, 2016 Findings: Once again noted there is an intra-articular fracture of the base of the 3rd proximal phalanx status post reduction and fixation with 2 pins position alignment is unchanged. Once again noted is a frac ture of the 2nd metacarpal distally which is undergone reduction and fixation with 3 pins. Position alignment is unchanged. No obvious healing is present. The limb is splinted. IMPRESSION: No significant change from the prior examination Reported By:
== END ==
LOC: RAD 14:26
PROVIDERS: ATTEND Orthopaedic Surgery
DX: Z79.899 Other long term (current) drug therapy (principal); S62.391B Other fracture of second metacarpal bone, left hand, initial encounter for open fracture; S62.613B Displaced fracture of proximal phalanx of left middle finger, initial encounter for open fracture; X58.XXXA Exposure to other specified factors, initial encounter; Z98.890 Other specified postprocedural states
CPT/HCPCS: 73130

== ENCOUNTER → 2016-12-27 | Outpatient (CLI) | payer OTHER ==
[2016-12-13 21:28] VITALS: BP 128/61
[~2016-12-27] MED LIST changes: -ANCEF VIAL 1 GM ONE; -DIPRIVAN VIAL ONE; -EPHEDRINE SULFATE INJ ONE; -LR 1000 ML IV 1,000 ML IV ONE; -MORPHINE SULFATE INJ 4 MG ONE; -NEOSTIGMINE INJ ONE; -NORCURON INJ 10 MG VIAL ONE; +NS 50 ML IV + SPIKE MINIBAG* 50 ML IV ONE; -NS 50 ML IV 50 ML IV ONE; -QUELICIN (OR ANECTINE) ONE; -REGLAN INJ 10 MG VIAL ONE; -ROBINUL ONE; +ROCEPHIN VIAL 2 GM ONE; -SUPRANE IN ONE; -VERSED ONE; -XYLOCAINE 2 % (PLAIN) ONE; -ZOFRAN INJ 4 MG VIAL ONE
[2016-12-27 09:41] LABS: CRYPTOSPORIDIUM PARVUM ANTIGEN NEGATIVE (NEGATIVE); GIARDIA LAMBLIA ANTIGEN NEGATIVE (NEGATIVE)
== END ==
LOC: LAB 06:43
PROVIDERS: ATTEND Nurse Practitioner Family
DX: K52.89 Other specified noninfective gastroenteritis and colitis (principal); Z79.899 Other long term (current) drug therapy; S62.331B Displaced fracture of neck of second metacarpal bone, left hand, initial encounter for open fracture; S62.613B Displaced fracture of proximal phalanx of left middle finger, initial encounter for open fracture; X58.XXXA Exposure to other specified factors, initial encounter; Z98.890 Other specified postprocedural states
CPT/HCPCS: 87045; 87205; 87328; 87329; 87336; 87493; 87899; J0696

== ENCOUNTER → 2016-12-31 | Outpatient (CLI) | payer OTHER ==
[2016-12-13 21:28] VITALS: BP 128/61
--- NOTE | 2016-12-31 15:13 | RAD ---
Left hand, three views Indication: Followup fracture Comparison: 12/24/2016 Findings: There is stable K-wire fixation of the index finger metacarpal and long finger proximal ph alangeal fractures. The bony alignment remains essentially anatomic. No significant healing is seen, although evaluation of fine bony detail is limited by superimposed cast material. Impression: No significant change from prior. Reported By:
== END ==
LOC: RAD 13:31
PROVIDERS: ATTEND Orthopaedic Surgery
DX: Z01.818 Encounter for other preprocedural examination (principal); Z79.899 Other long term (current) drug therapy; S62.331B Displaced fracture of neck of second metacarpal bone, left hand, initial encounter for open fracture; S62.613B Displaced fracture of proximal phalanx of left middle finger, initial encounter for open fracture; X58.XXXA Exposure to other specified factors, initial encounter; Z98.890 Other specified postprocedural states
CPT/HCPCS: 73130

== ENCOUNTER 2017-01-03 06:45 | Emergency (ER) | payer OTHER ==
[2016-12-13 21:28] VITALS: BP 128/61
[2017-01-03] MEDS ORDERED: ROCEPHIN VIAL 2 GM ONE (06:52)
[2017-01-03] MEDS ORDERED: CLEOCIN VIAL 600 MG ONE (06:52)
[2017-01-03] MEDS ORDERED: NS 50 ML IV + SPIKE MINIBAG* 50 ML IV ONE (06:53)
[2017-01-03] MEDS ORDERED: NS 50 ML IV 50 ML IV ONE (06:55)
[2017-01-03 07:20] VITALS: BMI 17.1
[2017-01-03] MEDS ORDERED: CLEOCIN 600 MG IV PREMIX 600 MG/50 ML BAG IV ONE (07:20)
[2017-01-03] MEDS ORDERED: ROCEPHIN VIAL 2 GM 2 GM in NS 50 ML IV + SPIKE MINIBAG* 50 ML IV ONE (07:20)
== END 2017-01-03 07:57 | disposition home or self-care (01) ==
LOC: OUTPT REF 06:45
DX: Z79.899 Other long term (current) drug therapy (principal); S62.331B Displaced fracture of neck of second metacarpal bone, left hand, initial encounter for open fracture; S62.613B Displaced fracture of proximal phalanx of left middle finger, initial encounter for open fracture; X58.XXXA Exposure to other specified factors, initial encounter; Z98.890 Other specified postprocedural states
CPT/HCPCS: 96365; 96374; 96375; J0077; J0696; S0077

== ENCOUNTER → 2017-01-14 | Outpatient (CLI) | payer OTHER ==
[2016-12-13 21:28] VITALS: BP 128/61
[2017-01-14 10:20] LABS: BASOPHILS % (AUTO) 0.7 % (0.2-1.0); EOSINOPHILS # (AUTO) 0.1 x10^3/uL (0.0-0.2); EOSINOPHILS % (AUTO) 1.9 % (0.9-2.9); HEMATOCRIT 34.4 % (42.0-54.0); HEMOGLOBIN 11.6 g/dL (13.5-18.0); LYMPHOCYTES # (AUTO) 1.5 X10^3/uL (1.3-2.9); LYMPHOCYTES % (AUTO) 22.4 % (21.0-51.0); MEAN CORPUSCULAR HEMOGLOBIN 31.8 pg (27.0-34.0); MEAN CORPUSCULAR HGB CONC 33.6 g/dL (33.0-35.0); MEAN CORPUSCULAR VOLUME 94.6 fL (80.0-100.0); MEAN PLATELET VOLUME 7.2 fL (7.4-11.0); MONOCYTES # (AUTO) 0.6 x10^3/uL (0.3-0.8); MONOCYTES % (AUTO) 8.9 % (0.0-13.0); NEUTROPHILS # (AUTO) 4.4 x10^3/uL (2.2-4.8); NEUTROPHILS % (AUTO) 66.1 % (42.0-75.0); PLATELET COUNT 284 X10^3/uL (150.0-450.0); RED BLOOD COUNT 3.64 X10^6/uL (4.7-6.0); RED CELL DISTRIBUTION WIDTH 13.5 % (11.6-16.5); WHITE BLOOD COUNT 6.6 X10^3/uL (3.6-10.0)
[2017-01-14 10:31] LABS: ALANINE AMINOTRANSFERASE 36 Units/L (12-78); ALKALINE PHOSPHATASE 97 Units/L (46-116); ASPARTATE AMINO TRANSFERASE 37 Units/L (15-37); BLOOD UREA NITROGEN 20 mg/dL (7-18); C-REACTIVE PROTEIN < 0.50 mg/L (0-3.0); CARBON DIOXIDE 26.8 mmol/L (21-32); CHLORIDE 104 mmol/L (98-107); COR NA(FOR HYPERGLY) 140 mmol/L (136-145); CREATININE 0.98 mg/dL (0.70-1.30); GLUCOSE 123 mg/dL (65-99); SODIUM 139 mmol/L (136-145); TOTAL PROTEIN 7.9 g/dL (6.4-8.2); eGFR BLACK RACES > 60 (>60); eGFR NON BLACK RACES > 60 (>60)
[2017-01-14 11:10] LABS: ERYTHROCYTE SEDIMENTATION RATE 15 MM/HOUR (0-15)
--- NOTE | 2017-01-14 16:31 | RAD ---
HAND RADIOGRAPHS CLINICAL HISTORY: 56-year-old male, followup for ORIF multiple left hand fractures. COMPARISON: Radiographs of left hand December 31, 2016. FINDINGS: 3 views of the left hand were obtained. These demonstrate interval removal of splint. Kirs chner wires in the 2nd metacarpal and 3rd metacarpal and proximal phalanx are unchanged. Unchanged a ppearance of comminuted fractures without significant interval callus formation. No new fracture. N o evidence of hardware malfunction. IMPRESSION: No significant interval callus formation about comminuted fractures involving the 2nd 3rd metacarpal s and proximal phalanx of the 3rd digit with My wires in place and unchanged. Reported By:
== END ==
LOC: LAB 09:50
PROVIDERS: ATTEND Orthopaedic Surgery
DX: Z01.818 Encounter for other preprocedural examination (principal); S62.331B Displaced fracture of neck of second metacarpal bone, left hand, initial encounter for open fracture; S62.331A Displaced fracture of neck of second metacarpal bone, left hand, initial encounter for closed fracture
CPT/HCPCS: 36415; 73130; 80053; 85025; 85652; 86140

== ENCOUNTER → 2017-01-21 | Outpatient (CLI) | payer OTHER ==
[2016-12-13 21:28] VITALS: BP 128/61
[2017-01-21 13:04] LABS: BASOPHILS % (AUTO) 0.7 % (0.2-1.0); EOSINOPHILS # (AUTO) 0.4 x10^3/uL (0.0-0.2); HEMATOCRIT 31.1 % (42.0-54.0); HEMOGLOBIN 10.4 g/dL (13.5-18.0); LYMPHOCYTES # (AUTO) 1.5 X10^3/uL (1.3-2.9); LYMPHOCYTES % (AUTO) 23.2 % (21.0-51.0); MEAN CORPUSCULAR HEMOGLOBIN 32.2 pg (27.0-34.0); MEAN CORPUSCULAR HGB CONC 33.4 g/dL (33.0-35.0); MEAN CORPUSCULAR VOLUME 96.5 fL (80.0-100.0); MONOCYTES # (AUTO) 0.7 x10^3/uL (0.3-0.8); NEUTROPHILS # (AUTO) 3.9 x10^3/uL (2.2-4.8); NEUTROPHILS % (AUTO) 59.1 % (42.0-75.0); PLATELET COUNT 231 X10^3/uL (150.0-450.0); RED BLOOD COUNT 3.23 X10^6/uL (4.7-6.0); RED CELL DISTRIBUTION WIDTH 13.8 % (11.6-16.5); WHITE BLOOD COUNT 6.6 X10^3/uL (3.6-10.0)
[2017-01-21 13:08] LABS: ALANINE AMINOTRANSFERASE 39 Units/L (12-78); ALBUMIN 3.8 g/dL (3.4-5.0); ALKALINE PHOSPHATASE 96 Units/L (46-116); ASPARTATE AMINO TRANSFERASE 31 Units/L (15-37); BLOOD UREA NITROGEN 24 mg/dL (7-18); CALCIUM 8.7 mg/dL (8.5-10.1); CARBON DIOXIDE 28.4 mmol/L (21-32); CHLORIDE 102 mmol/L (98-107); CREATININE 1.11 mg/dL (0.70-1.30); GLUCOSE 101 mg/dL (65-99); SODIUM 137 mmol/L (136-145); TOTAL PROTEIN 7.5 g/dL (6.4-8.2); eGFR BLACK RACES > 60 (>60); eGFR NON BLACK RACES > 60 (>60)
[2017-01-21 13:54] LABS: ERYTHROCYTE SEDIMENTATION RATE 20 MM/HOUR (0-15)
== END ==
LOC: LAB 12:35
PROVIDERS: ATTEND Orthopaedic Surgery
DX: Z01.818 Encounter for other preprocedural examination (principal); S62.331B Displaced fracture of neck of second metacarpal bone, left hand, initial encounter for open fracture; X58.XXXA Exposure to other specified factors, initial encounter
CPT/HCPCS: 36415; 80053; 85025; 85652; 86140

== ENCOUNTER 2017-02-18 08:18 | Outpatient (CLI) | payer OTHER ==
[2016-12-13 21:28] VITALS: BP 128/61
--- NOTE | 2017-02-18 09:17 | RAD ---
Examination: X-rays of the left hand. Clinical history: Laceration of extensor muscle, surgery on 2nd and 3rd digits 10 weeks ago. Technique: Three views of the left hand were obtained. Comparison: 01/14/2017. Findings: There is a comminuted fracture of the base of the proximal phalanx of the 3rd finger which is stable in position. K-wires internally fixating the fracture have now been removed. Minimal callus formati on and periosteal reaction is noted at the fracture site. A comminuted fracture of the distal 2nd metacarpal bone, internally fixated with K-wires is stable i n position, with no appreciable callus formation or periosteal reaction noted at the fracture site. No new bony or soft tissue abnormality is noted. Impression: 1. Fractures of the 2nd metacarpal bone and the proximal phalanx of the 3rd finger, as described abo ve. Reported By:
[2017-02-18 09:24] LABS: BASOPHILS % (AUTO) 0.6 % (0.2-1.0); EOSINOPHILS # (AUTO) 0.3 x10^3/uL (0.0-0.2); EOSINOPHILS % (AUTO) 5.9 % (0.9-2.9); HEMATOCRIT 34.8 % (42.0-54.0); HEMOGLOBIN 11.8 g/dL (13.5-18.0); LYMPHOCYTES # (AUTO) 1.3 X10^3/uL (1.3-2.9); LYMPHOCYTES % (AUTO) 22.3 % (21.0-51.0); MEAN CORPUSCULAR HEMOGLOBIN 31.5 pg (27.0-34.0); MEAN CORPUSCULAR HGB CONC 33.8 g/dL (33.0-35.0); MEAN CORPUSCULAR VOLUME 93.1 fL (80.0-100.0); MEAN PLATELET VOLUME 7.9 fL (7.4-11.0); MONOCYTES # (AUTO) 0.5 x10^3/uL (0.3-0.8); MONOCYTES % (AUTO) 8.9 % (0.0-13.0); NEUTROPHILS # (AUTO) 3.5 x10^3/uL (2.2-4.8); NEUTROPHILS % (AUTO) 62.3 % (42.0-75.0); PLATELET COUNT 198 X10^3/uL (150.0-450.0); RED BLOOD COUNT 3.74 X10^6/uL (4.7-6.0); RED CELL DISTRIBUTION WIDTH 15.1 % (11.6-16.5); WHITE BLOOD COUNT 5.7 X10^3/uL (3.6-10.0)
[2017-02-18 10:14] LABS: ALANINE AMINOTRANSFERASE 34 Units/L (12-78); ALBUMIN 3.9 g/dL (3.4-5.0); ALKALINE PHOSPHATASE 96 Units/L (46-116); ASPARTATE AMINO TRANSFERASE 29 Units/L (15-37); BLOOD UREA NITROGEN 11 mg/dL (7-18); CALCIUM 8.5 mg/dL (8.5-10.1); CARBON DIOXIDE 28.7 mmol/L (21-32); CHLORIDE 101 mmol/L (98-107); CREATININE 0.96 mg/dL (0.70-1.30); GLUCOSE 105 mg/dL (65-99); SODIUM 134 mmol/L (136-145); TOTAL PROTEIN 7.7 g/dL (6.4-8.2); eGFR BLACK RACES > 60 (>60); eGFR NON BLACK RACES > 60 (>60)
[2017-02-18 10:22] LABS: ERYTHROCYTE SEDIMENTATION RATE 18 MM/HOUR (0-15)
[2017-02-18 14:58] VITALS: BMI 21.5
== END 2017-02-18 14:59 | disposition home or self-care (01) ==
LOC: LAB 08:18 → ER 14:59
PROVIDERS: ATTEND Orthopaedic Surgery
DX: S66.321A Laceration of extensor muscle, fascia and tendon of left index finger at wrist and hand level, initial encounter (principal); S66.323A Laceration of extensor muscle, fascia and tendon of left middle finger at wrist and hand level, initial encounter; X58.XXXA Exposure to other specified factors, initial encounter
CPT/HCPCS: 36415; 73130; 80053; 85025; 85652; 86140; 99281

== ENCOUNTER → 2017-06-02 | Outpatient (CLI) | payer OTHER ==
[2016-12-13 21:28] VITALS: BP 128/61
--- NOTE | 2017-06-04 12:44 | RAD ---
HISTORY: Fracture follow-up Study: Three views of the left hand Comparison: 02/18/2017 Findings: Since prior exam there has been interval progression of callus formation along and adjacent to the fr acture site involving the proximal phalanx of the left 3rd digit. Adjacent tiny densities are again s een and may reflect fracture fragments. Postoperative changes of K-wire placement are again seen thro ugh the 2nd metacarpal. There has been interval progression of callus formation along and adjacent to the fracture site since prior exam. IMPRESSION: 1. Continued interval healing of the previously noted fractures involving the left 2nd metacarpal an d proximal phalanx of the left 3rd digit as noted above. Reported By:
== END ==
LOC: RAD 08:40
PROVIDERS: ATTEND Orthopaedic Surgery
DX: S62.613B Displaced fracture of proximal phalanx of left middle finger, initial encounter for open fracture (principal); X58.XXXA Exposure to other specified factors, initial encounter
CPT/HCPCS: 73130

== ENCOUNTER → 2017-12-09 | Outpatient (CLI) | payer OTHER ==
[2016-12-13 21:28] VITALS: BP 128/61
--- NOTE | 2017-12-09 11:54 | MRI ---
MRI SPINE CERVICAL WITHOUT CONTRAST CLINICAL HISTORY: 57-year-old male with chronic neck pain and history of Hodgkin's lymphoma. COMPARISON: MR cervical spine 07/30/2015. Technique: Multiplanar, multisequence MRI images of the cervical spine were obtained without the adm inistration of intravenous contrast. FINDINGS: Straightening of the cervical lordosis as imaged. Alignment is maintained. The craniocervic al junction is normal. Vertebral body and disc space height are maintained. Vertebral marrow and inte rvertebral disc space signal are normal. Cord signal is normal. The visualized posterior fossa stru ctures are normal. C2-T1: Mild multilevel shallow disc osteophyte complexes and facet/uncovertebral joint hypertrophy wi thout central canal or neural foraminal stenosis of any significance. No nerve root impingement, cord deformity or signal change. IMPRESSION: Mild multilevel degenerative change without central canal stenosis, neural foraminal stenosis, cord d eformity or signal change or nerve root impingement. Reported By:
--- NOTE | 2017-12-09 12:01 | MRI ---
MRI SPINE LUMBAR WITHOUT CONTRAST CLINICAL HISTORY: 57-year-old male with chronic low back pain. COMPARISON: None. Technique: Multiplanar, multisequence MRI images of the lumbar spine were obtained without the admin istration of contrast. FINDINGS: The most caudad, fully-formed intervertebral disc will be labeled L5-S1 for the purpose of this dictation. There is normal lumbar lordosis. Alignment is maintained. Vertebral body height and m arrow signal are preserved. There is mild loss of disc space and signal from L2-L5. Vertebral marrow and intervertebral disc signal are normal. Cord signal is normal. The conus medullaris is normal in s ignal characteristics and morphology and terminates at the L1-2 level. T11-T12: No central canal or neural foraminal stenosis. T12-L1: Mild facet arthropathy without central canal or neural foraminal stenosis. L1-L2: Moderate disc bulge and facet arthropathy without central canal or neural foraminal stenosis. L2-L3: Large asymmetric disc bulge with a right foraminal component with moderate to severe facet art hropathy. No central canal stenosis. Moderate to severe right neural foraminal stenosis with circumfe rential compression of the exiting right L2 nerve root. L3-L4: Large symmetric disc bulge with bilateral foraminal components and severe facet arthropathy co mbine to produce moderate to severe bilateral neural foraminal stenosis with concentric engagement of the exiting L3 nerve roots. L4-L5: Large asymmetric disc bulge with a left foraminal/extra foraminal component with severe bilate ral facet arthropathy. Severe left-sided neural foraminal stenosis with compressive deformity of the exiting left L4 nerve root. L5-S1: Large symmetric disc bulge without central canal or neural foraminal stenosis. Paraspinous soft tissues demonstrate multiple simple appearing right renal cysts and left-sided hydro ureteronephrosis. IMPRESSION: 1. Multilevel disc degeneration and spondyloarthropathy, most severe at L4-L5 on the left. 2. See level by level descriptions above. 3. Simple appearing right renal cyst and left-sided hydroureteronephrosis, recommend CT abdomen and p adiel, renal protocol. Reported By:
== END ==
LOC: RAD 09:57
PROVIDERS: ATTEND Nurse Practitioner Family
DX: M51.36 Other intervertebral disc degeneration, lumbar region (principal); M54.2 Cervicalgia; M25.78 Osteophyte, vertebrae
CPT/HCPCS: 72141; 72148

== ENCOUNTER 2021-02-05 14:43 | Observation (INO) ==
[2021-02-05] MEDS ORDERED: ZOFRAN INJ 4 MG VIAL IVP PRN (16:27)
--- NOTE | 2021-02-05 16:35 | DR.H&P ---
H&P - History & Physical for Day of: H&P Date: 02/05/21 - Chief Complaint Chief Complaint: weakness, SOUSA, weight loss, anemia - History of Present Illness History of Present Illness: PT IS 60 [address] ADMITTED FROM DR AYALA OFFICE AFTER PRESENTING WITH CO BOWEL HABIT CHANGES, WEAKNESS AND SYMPTOMATIC ANEMIA. PT HAS PMH OF COLON CA AND HAD BEEN UNABLE TO DO COLONOSCOPY BECAUSE "TOO WEAK" FOR BOWEL PREP. PT REPORT MUCOUS IN STOOL AND DARK, BLACK STOOL. PT HAD LOST 8 LBS IN 3 WEEKS. PT HAS PMH OF COPD, CAD, ADVANCED OA. PT ADMITTED FOR TREATMENT AND EVALUATION OF ACUTE ILLNESS. - Past Medical History Past Medical History: Anxiety, Arthritis, COPD, Coronary Artery Disease, Dyslipidemia, Hypertension Additional Medical History: HX COLON CANCER - Past Surgical History Surgical History: Angioplasty/Stents, CABG/Valve Surgery - Family History Family Medical History: Cancer, PA, Hypertension - Social History Does patient currently use any type of tobacco product: Yes Have you used tobacco products in the last 12 months: Yes Type of Tobacco Use: Cigarettes Does any household member use tobacco: Yes Alcohol Use: None Drug Use: None Prescription drug monitoring program results: PDMP reviewed and no concerns identified - Medications Home Medications: No Known Drug Allergies Allergy (Verified 10/18/20 10:19) - Review of Systems Constitutional: No Symptoms Reported Eyes: No Symptoms Reported ENT: No Symptoms Reported Respiratory: Shortness of Breath, SOB with Excertion Cardiovascular: denies: Edema Gastrointestinal: Nausea, Vomiting, Diarrhea, Constipation Musculoskeletal: Back Pain, Leg Pain Skin: No Symptoms Reported Neurological: Weakness, Other (DIZZINESS) - Physical Exam Vital Signs: Blood Pressure [Left Arm] 126/57 Oriented: Normal Eyes: Normal Ear: Normal Throat: Dry Respiratory: RLL Diminished, LLL Diminished Cardiovascular: Normal : Normal Auscultation: Bowel Sounds: Decreased Tenderness: Diffuse Skin: Decreased Turgur, Other (DIFFUSE PALLOR) Musculoskeletal: Back:Thoracic, Back:Lumbar, Motor Deficit, Sensory Deficit Psychiatric: Anxiety Mood Description: Anxious Affect: Anxious Speech Pattern: Clear, Appropriate - Assessment/Plan (1) Weakness Status: Acute Plan: ADMIT, IV HYDRATION. ANEMIA PANEL AND OCCULT STOOL ON ADMISSION. CXR, EKG ON ADMISSION. GI CONSULT, PPI THERAPY. PAIN AND NAUSEA CONTROL (2) Anemia Status: Acute (3) Weight loss, non-intentional Status: Acute (4) Osteoarthritis Status: Acute (5) COPD (chronic obstructive pulmonary disease) Status: Chronic (6) CAD (coronary artery disease) Status: Chronic - Allergies Allergies/Adverse Reactions: Allergies Allergy/AdvReac Type Severity Reaction Status Date / Time No Known Drug Allergies Allergy Verified 10/18/20 10:19
[2021-02-05 16:53] LABS: BASOPHILS # (AUTO) 0.1 X10^3/uL (0.0-0.1); BASOPHILS % (AUTO) 1.1 % (0.2-1.0); EOSINOPHILS # (AUTO) 0.2 x10^3/uL (0.0-0.2); EOSINOPHILS % (AUTO) 1.9 % (0.9-2.9); HEMATOCRIT 28.5 % (42.0-54.0); HEMOGLOBIN 9.4 g/dL (13.5-18.0); LYMPHOCYTES % (AUTO) 12.4 % (21.0-51.0); MEAN CORPUSCULAR HEMOGLOBIN 26.6 pg (27.0-34.0); MEAN CORPUSCULAR HGB CONC 33.1 g/dL (33.0-35.0); MEAN CORPUSCULAR VOLUME 80.5 fL (80.0-100.0); MEAN PLATELET VOLUME 6.1 fL (7.4-11.0); MONOCYTES # (AUTO) 1.2 x10^3/uL (0.3-0.8); NEUTROPHILS # (AUTO) 5.9 x10^3/uL (2.2-4.8); NEUTROPHILS % (AUTO) 70.6 % (42.0-75.0); PLATELET COUNT 490 X10^3/uL (150.0-450.0); RED BLOOD COUNT 3.54 X10^6/uL (4.7-6.0); RED CELL DISTRIBUTION WIDTH 20.5 % (11.6-16.5); WHITE BLOOD COUNT 8.4 X10^3/uL (3.6-10.0)
[2021-02-05 17:04] LABS: ALANINE AMINOTRANSFERASE 63 Units/L (12-78); ALBUMIN 2.5 g/dL (3.4-5.0); ALKALINE PHOSPHATASE 173 Units/L (46-116); ASPARTATE AMINO TRANSFERASE 58 Units/L (15-37); BLOOD UREA NITROGEN 16 mg/dL (7-18); CALCIUM 9.1 mg/dL (8.5-10.1); CARBON DIOXIDE 30.1 mmol/L (21-32); CHLORIDE 100 mmol/L (98-107); COR CA(FOR HYPOALB) 10.3 mg/dL (8.5-10.1); CREATININE 0.89 mg/dL (0.70-1.30); SODIUM 138 mmol/L (136-145); TOTAL PROTEIN 8.2 g/dL (6.4-8.2); eGFR NON BLACK RACES > 60 (>60)
[2021-02-05 17:05] VITALS: BMI 14.6
[2021-02-05 17:05] LABS: ANISOCYTOSIS 1+; HYPOCHROMASIA SLIGHT; PLATELET MORPHOLOGY COMMENT NORMAL (NORMAL)
[2021-02-05] MEDS: NICOTINE PATCH TD SCH (17:28)
[2021-02-05] MEDS: NS 1000 ML 1,000 ML IV SCH (17:28)
[2021-02-05] MEDS: PROTONIX INJ 40 MG VIAL IVP SCH ×2 (17:28→20:29)
[2021-02-05] MEDS: PERCOCET TAB 5/325 MG PO PRN ×2 (17:30→23:31)
[2021-02-05 17:34] LABS: IRON 15 ug/dL (50-175)
--- NOTE | 2021-02-05 18:28 | RAD ---
CHEST, 1 VIEWHISTORY: SOUSA, SOB, COPDStudy: AP view of the chest.Comparison:NoneFindings:The cardiomediastinal silhouette is normal. No focal consolidations, pleural effusions or pneumothorax. There is right perihilar fullness. Bilateral hyperexpansion and interstitial prominence.IMPRESSION:1. No acute cardiopulmonary process.2. Findings of COPD.3. Right perihilar fullness. This may be related to patient's history of non-Hodgkin's lymphoma.Electronically signed by: SAI SANDS (Feb 05, 2021 18:25:57)
[2021-02-05] MEDS: LYRICA CAP 75 mg PO SCH ×2 (18:30→21:25)
[2021-02-05] MEDS: DESYREL PO PRN (21:31)
[2021-02-06] MEDS: NS 1000 ML 1,000 ML IV SCH ×3 (04:12→22:03)
[2021-02-06] MEDS: PERCOCET TAB 5/325 MG PO PRN ×3 (05:44→20:33)
[2021-02-06] MEDS: LYRICA CAP 75 mg PO SCH ×4 (05:45→22:03)
[2021-02-06 06:28] LABS: BASOPHILS # (AUTO) 0.1 X10^3/uL (0.0-0.1); BASOPHILS % (AUTO) 0.9 % (0.2-1.0); EOSINOPHILS # (AUTO) 0.2 x10^3/uL (0.0-0.2); EOSINOPHILS % (AUTO) 1.8 % (0.9-2.9); HEMATOCRIT 32.9 % (42.0-54.0); HEMOGLOBIN 10.7 g/dL (13.5-18.0); LYMPHOCYTES # (AUTO) 1.3 X10^3/uL (1.3-2.9); LYMPHOCYTES % (AUTO) 13.6 % (21.0-51.0); MEAN CORPUSCULAR HEMOGLOBIN 26.5 pg (27.0-34.0); MEAN CORPUSCULAR HGB CONC 32.4 g/dL (33.0-35.0); MEAN CORPUSCULAR VOLUME 81.8 fL (80.0-100.0); MEAN PLATELET VOLUME 6.5 fL (7.4-11.0); MONOCYTES # (AUTO) 1.3 x10^3/uL (0.3-0.8); MONOCYTES % (AUTO) 13.2 % (0.0-13.0); NEUTROPHILS # (AUTO) 6.8 x10^3/uL (2.2-4.8); NEUTROPHILS % (AUTO) 70.5 % (42.0-75.0); PLATELET COUNT 608 X10^3/uL (150.0-450.0); RED BLOOD COUNT 4.03 X10^6/uL (4.7-6.0); RED CELL DISTRIBUTION WIDTH 20.5 % (11.6-16.5); WHITE BLOOD COUNT 9.6 X10^3/uL (3.6-10.0)
[2021-02-06 06:52] LABS: ALANINE AMINOTRANSFERASE 62 Units/L (12-78); ALBUMIN 2.5 g/dL (3.4-5.0); ALKALINE PHOSPHATASE 183 Units/L (46-116); ASPARTATE AMINO TRANSFERASE 49 Units/L (15-37); BLOOD UREA NITROGEN 11 mg/dL (7-18); CALCIUM 9.1 mg/dL (8.5-10.1); CARBON DIOXIDE 25.1 mmol/L (21-32); CHLORIDE 100 mmol/L (98-107); COR CA(FOR HYPOALB) 10.3 mg/dL (8.5-10.1); CREATININE 0.81 mg/dL (0.70-1.30); SODIUM 137 mmol/L (136-145); TOTAL PROTEIN 8.5 g/dL (6.4-8.2); eGFR NON BLACK RACES > 60 (>60)
[2021-02-06 07:02] LABS: PLATELET MORPHOLOGY COMMENT NORMAL (NORMAL)
[2021-02-06 07:03] LABS: ANISOCYTOSIS 1+; HYPOCHROMASIA SLIGHT
[2021-02-06] MEDS ORDERED: INFeD or DEXFERRUM 25 MG in NS 100 ML IV 100 ML IV ONE (08:00)
[2021-02-06] MEDS ORDERED: BENADRYL INJ 50 MG VIAL IVP PRN (08:47)
[2021-02-06] MEDS ORDERED: INFeD or DEXFERRUM 975 MG in NS 500 ML IV 500 ML IV ONE (09:00)
[2021-02-06] MEDS: PROTONIX INJ 40 MG VIAL IVP SCH ×2 (09:12→20:32)
[2021-02-06] MEDS: NICOTINE PATCH TD SCH (09:13)
[2021-02-06] MEDS: MORPHINE SULFATE INJ 2 MG INJ IVP PRN ×3 (10:10→23:01)
--- NOTE | 2021-02-06 10:18 | CT ---
HISTORYUNINTENTIONAL WEIGHT LOSS, ANEMIA, Hodgkin lymphoma.STUDYABDOMEN/PELVIS WITH CONCOMPARISONCT abdomen and pelvis 04/19/2020TECHNIQUEMultiple CT axial images of the abdomen and pelvis were obtained with IV contrast. Coronal and sagittal images were reconstructed. Dose reduction techniques included Automated Exposure Control (AEC) and adjustment of mA and kV.FINDINGSThe lung bases are clear. Heart size is normal.The liver is normal in size and configuration. The gallbladder has no inflammation around it. The spleen is normal in size and shape.There may be minimal dilatation of the bile duct in the pancreatic head, measuring about 8 mm. Possible filling defect noted seen as a meniscus sign on coronal and sagittal imaging. This could be artifactual. But could also be a noncalcified stone or small intraluminal soft tissue nodule. You could correlate the dilated duct with liver function tests. We could evaluate the duct with additional imaging using MRCP.The adrenal glands are normal. The pancreas is normal.Renal enhancement is symmetric with no solid mass. No abnormal calcification is present. There is no hydronephrosis or significant perirenal edema. A few small renal cysts measure less than 1 cm. The ureters are not dilated. The bladder is normally distended. It has no wall thickening or perivesical edema.The bowel is not dilated. There is no wall thickening in the bowel or edema around the bowel. Oral contrast has moved through the entire bowel into the left colon without evidence for obstruction.No mass or lymphadenopathy. There is a trace amount of fluid seen in the right pericolic gutter and in the pelvis. Degenerative changes are present in the spine.IMPRESSION1. Possible filling defect or artifact in the common bile duct; recommend MRCP2. Trace free fluidElectronically signed by: Grupo Mejia (Feb 06, 2021 10:16:01)
[2021-02-06] MEDS ORDERED: MIRALAX POWDER (255 GRAMS BTL) PO ONE (13:25)
[2021-02-06] MEDS ORDERED: DULCOLAX TAB EC 5 MG PO ONE ×2 (13:25→21:00)
[2021-02-06] MEDS: MIRALAX POWDER (255 GRAMS BTL) PO NR ×2 (13:32→13:34)
[2021-02-06] MEDS: DULCOLAX TAB EC 5 MG PO ONE ×2 (13:33→15:23)
[2021-02-06] MEDS: DESYREL PO PRN (20:32)
[2021-02-07] MEDS: PERCOCET TAB 5/325 MG PO PRN ×2 (03:44→11:17)
[2021-02-07 05:25] LABS: BASOPHILS # (AUTO) 0.1 X10^3/uL (0.0-0.1); EOSINOPHILS # (AUTO) 0.2 x10^3/uL (0.0-0.2); EOSINOPHILS % (AUTO) 2.9 % (0.9-2.9); HEMATOCRIT 28.3 % (42.0-54.0); HEMOGLOBIN 9.3 g/dL (13.5-18.0); LYMPHOCYTES % (AUTO) 12.8 % (21.0-51.0); MEAN CORPUSCULAR HEMOGLOBIN 26.4 pg (27.0-34.0); MEAN CORPUSCULAR HGB CONC 32.7 g/dL (33.0-35.0); MEAN CORPUSCULAR VOLUME 80.9 fL (80.0-100.0); MEAN PLATELET VOLUME 6.7 fL (7.4-11.0); MONOCYTES # (AUTO) 1.3 x10^3/uL (0.3-0.8); MONOCYTES % (AUTO) 16.6 % (0.0-13.0); NEUTROPHILS # (AUTO) 5.4 x10^3/uL (2.2-4.8); NEUTROPHILS % (AUTO) 66.7 % (42.0-75.0); PLATELET COUNT 483 X10^3/uL (150.0-450.0); RED CELL DISTRIBUTION WIDTH 20.1 % (11.6-16.5)
[2021-02-07] MEDS: LYRICA CAP 75 mg PO SCH ×2 (05:42→15:41)
[2021-02-07] MEDS: MORPHINE SULFATE INJ 2 MG INJ IVP PRN (05:43)
[2021-02-07 05:50] LABS: ALBUMIN 2.1 g/dL (3.4-5.0); ALKALINE PHOSPHATASE 160 Units/L (46-116); ASPARTATE AMINO TRANSFERASE 48 Units/L (15-37); BLOOD UREA NITROGEN 10 mg/dL (7-18); CALCIUM 8.7 mg/dL (8.5-10.1); CARBON DIOXIDE 24.1 mmol/L (21-32); CHLORIDE 103 mmol/L (98-107); COR CA(FOR HYPOALB) 10.2 mg/dL (8.5-10.1); CREATININE 0.66 mg/dL (0.70-1.30); SODIUM 137 mmol/L (136-145); TOTAL PROTEIN 7.4 g/dL (6.4-8.2); eGFR NON BLACK RACES > 60 (>60)
[2021-02-07 06:10] LABS: ANISOCYTOSIS 1+; HYPOCHROMASIA SLIGHT; PLATELET MORPHOLOGY COMMENT NORMAL (NORMAL)
[2021-02-07 06:25] LABS: ALANINE AMINOTRANSFERASE 62 Units/L (12-78)
--- NOTE | 2021-02-07 08:31 | MRI ---
HISTORYLymphoma, unintentional weight loss, anemia, biliary ductal dilationSTUDYMRI abdomen without IV contrast, MRCPCOMPARISONCT abdomen 02/06/2021TECHNIQUEMRI of the abdomenwithout IV contrast is performed using standard sequences in multiple planes. MRCP protocol.FINDINGSCommon bile duct is dilated to 8.3 mm. Mild intrahepatic biliary ductal dilation is seen. And struck ting lesion is not seen, though. No cholelithiasis or cholecystitis is seen. Mild dilation of the pancreatic duct is seen, also. It measures up to 3.5 mm in diameter. No pancreatitis or pancreatic mass is seen.No hepatic or splenic abnormality is seen. Stomach is not well distended and gastric wall appears prominent. Gastritis is not excluded. Adrenal glands and abdominal aorta appear normal in size. No lymphadenopathy or ascites is seen.There are several T2 hyperintense lesions in the kidneys that are probable cysts. However, in the mid to lower posterior right kidney there is a 9 mm T2 hypo intense lesion. It is most likely a proteinaceous cyst. It appears to be a simple cyst on CT study. In the lower pole of the left kidney there is another T2 hypo intense lesion that is mildly hyperdense on CT. This is probably a 7.5 mm proteinaceous cyst. It appears stable dating back to CT studies in 2019.IMPRESSIONDilation of the extrahepatic biliary ducts and proximal intrahepatic biliary ducts is similar to prior CT. An obstructing lesion is not seen. There is mild dilation of the pancreatic duct, also.Likely benign renal cysts, 2 of which appear to be proteinaceous.Gastric wall prominence is seen but this could be artifactual appearance. Consider possible gastritis, though.Electronically signed by: Mateo Turner (Feb 07, 2021 08:28:40)
[2021-02-07] MEDS: PROTONIX INJ 40 MG VIAL IVP SCH (09:36)
[2021-02-07] MEDS: NICOTINE PATCH TD SCH (10:00)
[2021-02-07] MEDS ORDERED: D5 LR 1000 ML 1,000 ML IV ONE (12:38)
[2021-02-07 13:16] VITALS: BP 152/75
[2021-02-07] MEDS ORDERED: DIPRIVAN VIAL 20 ML ONE ×2 (13:39→14:11)
[2021-02-07] MEDS ORDERED: ROBINUL ONE (14:05)
[2021-02-07] MEDS: NS 1000 ML 1,000 ML IV SCH (15:39)
== END 2021-02-07 15:30 | disposition home or self-care (01) ==
LOC: MED/SURG
PROVIDERS: ADMIT Internal Medicine; ATTEND Internal Medicine
DX: E86.0 Dehydration; K21.9 Gastro-esophageal reflux disease without esophagitis; R63.4 Abnormal weight loss; K92.2 Gastrointestinal hemorrhage, unspecified; J44.9 Chronic obstructive pulmonary disease, unspecified; K64.8 Other hemorrhoids; R79.89 Other specified abnormal findings of blood chemistry; I10 Essential (primary) hypertension; R94.31 Abnormal electrocardiogram [ECG] [EKG]; R19.4 Change in bowel habit; Z85.72 Personal history of non-Hodgkin lymphomas; R06.02 Shortness of breath; Z87.11 Personal history of peptic ulcer disease; M19.90 Unspecified osteoarthritis, unspecified site; I25.10 Atherosclerotic heart disease of native coronary artery without angina pectoris; E78.2 Mixed hyperlipidemia; D50.8 Other iron deficiency anemias; Z85.71 Personal history of Hodgkin lymphoma

== ENCOUNTER 2021-03-09 17:44 | Inpatient (IN) ==
[2021-03-09] MEDS ORDERED: NS 1000 ML 1,000 ML IV ONE (19:40)
[2021-03-09] MEDS ORDERED: MORPHINE SULFATE INJ 2 MG INJ IVP ONE (19:40)
[2021-03-09] MEDS ORDERED: ZOFRAN INJ 4 MG VIAL IVP ONE (19:40)
--- NOTE | 2021-03-09 19:43 | DR.ABDMALE ---
HPI Time seen Time Seen by Provider: 03/09/21 19:36 PCP Primary Care Physician: NAZIA CHAVEZ HPI comment HPI Comment: Epigastric pain started around 3 o'clock this afternoon and has progressively worsened with n/v several times; normal stool this am; no fever, chills, rash, cough, sob or wheezing; he denies etoh and h/o pancreatitis; never had this before. Complaint Chief Complaint:: PATIENT CAME TO ER REPORTS UPPER ABDOMINAL PAIN. COVID-19 Coronavirus risk:travel/contact w/high risk person: No Has patient experienced Coronavirus symptoms: No Source History provided by:: Pt Mode of arrival Mode of Arrival: Ambulatory Timing Onset of Chief Complaint: 03/09/21 PMH PMH Past Medical History: Yes Past Medical History: Anxiety, Arthritis, COPD, Coronary Artery Disease, Dys lipidemia and Hypertension Past Surgical History: Yes Surgical History: CABG/Valve Surgery and Other Family History History of Family Medical Conditions: Yes Family Medical History: Cancer, [place] and Hypertension Social History Alcohol Use: None Do you use any recreational Drugs:: No Travel Risk Coronavirus risk:travel/contact w/high risk person: No Has patient experienced Coronavirus symptoms: No Infectious screening In the last 2 months have you had wt loss of >10#?: NO Have you had fever, night sweats or hemotysis?: No Have you traveled outside the country in the last 6 months?: No Isolation: Standard ROS Review of Systems Constitutional: No Symptoms Reported Eyes: No Symptoms Reported ENTM: No Symptoms Reported Respiratoy: No Symptoms Reported Cardiovascular: No Symptoms Reported Genitourinary: No Symptoms Reported Neurological: No Symptoms Reported Musculoskeletal: No Symptoms Reported Integumentary: No Symptoms Reported Hematologic/Lymphatic: No Symptoms Reported Endocrine: No Symptoms Reported Psychiatric: No Symptoms Reported PE Vital Signs Vital Signs: Temp Pulse Resp BP BP Pulse Ox 03/09/21 21:32 22 03/09/21 20:22 20 03/09/21 18:10 97.4 F L 67 22 147/73 96 02/07/21 12:00 152/75 General Limitations: No Limitations General Appearance: Alert and In No Apparent Distress Head Head Exam: Normal Inspection Eyes Eye exam: Normal Appearance ENT ENT Exam: Normal Exam Neck Neck Exam: Normal Inspection Chest Chest Inspection: Normal Inspection Respiratory Respiratory Exam: Normal Lung Sounds Bilat Cardiovascular Cardiovascular Exam: Regular Rate and Normal Rhythm Abdominal Exam Abdominal Exam: Normal Inspection, Normal Bowel Sounds, Soft and Tenderness Abdominal Tenderness: Epigastrium and Severe Rectal Rectal Exam: Deferred Back Back Exam: Normal Inspection Extremeties Extremities Exam: Normal Inspection Exam: Male: Deferred Neurologic Neurological Exam: Alert and Oriented X3 Psychiatric Psychiatric Exam: Normal Affect and Normal Mood Skin Skin Exam: Warm, Dry, Intact and Normal Color MDM Differential Diagnosis Differential Diagnosis: Bowel Obstruction, Cholelethiasis, Gastritus/PUD, Gastroenteritis, Ischemic Bowel and Pancreatitis COURSE Reevaluation 1st: Worsened 2nd: Unchanged 3rd: Improved Consultation Call Returned: 21:23 (Dr Ramirez notified of admission and accepts) [facility] Labs Reviewed Laboratory Results Reviewed?: Yes Result Diagrams: 03/09/21 19:59 03/09/21 19:59 Laboratory: WBC 10.9 X10^3/uL (3.6-10.0) H 03/09/21 19:59 RBC 3.65 X10^6/uL (4.7-6.0) L 03/09/21 19:59 Hgb 10.3 g/dL (13.5-18.0) L 03/09/21 19:59 Hct 31.4 % (42.0-54.0) L 03/09/21 19:59 MCV 86.2 fL (80.0-100.0) 03/09/21 19:59 MCH 28.1 pg (27.0-34.0) 03/09/21 19:59 MCHC 32.7 g/dL (33.0-35.0) L 03/09/21 19:59 RDW 23.0 % (11.6-16.5) H 03/09/21 19:59 Plt Count 448 X10^3/uL (150.0-450.0) 03/09/21 19:59 Plt Count Comment Adequate (ADEQUATE) 03/09/21 19:59 MPV 6.4 fL (7.4-11.0) L 03/09/21 19:59 Neut % (Auto) 80.0 % (42.0-75.0) H 03/09/21 19:59 Lymph % (Auto) 7.8 % (21.0-51.0) L 03/09/21 19:59 [place] % (Auto) 9.4 % (0.0-13.0) 03/09/21 19:59 Eos % (Auto) 2.1 % (0.9-2.9) 03/09/21 19:59 Baso % (Auto) 0.7 % (0.2-1.0) 03/09/21 19:59 Neut # (Auto) 8.7 x10^3/uL (2.2-4.8) H 03/09/21 19:59 Lymph # (Auto) 0.8 X10^3/uL (1.3-2.9) L 03/09/21 19:59 [place] # (Auto) 1.0 x10^3/uL (0.3-0.8) H 03/09/21 19:59 Eos # (Auto) 0.2 x10^3/uL (0.0-0.2) 03/09/21 19:59 Baso # (Auto) 0.1 X10^3/uL (0.0-0.1) 03/09/21 19:59 Absolute Nucleated RBC 0.0 /100WBC 03/09/21 19:59 Plt Morphology Comment Normal (NORMAL) 03/09/21 19:59 RBC Morphology Abnormal (NORMAL) 03/09/21 19:59 Anisocytosis 2+ A 03/09/21 19:59 Sodium 138 mmol/L (136-145) 03/09/21 19:59 Corrected Sodium TNP 03/09/21 19:59 Potassium 4.3 mmol/L (3.5-5.1) 03/09/21 19:59 Chloride 103 mmol/L (98-107) 03/09/21 19:59 Carbon Dioxide 28.7 mmol/L (21-32) 03/09/21 19:59 BUN 15 mg/dL (7-18) 03/09/21 19:59 Creatinine 0.79 mg/dL (0.70-1.30) 03/09/21 19:59 Est GFR (MDRD) Af Amer > 60 (>60) 03/09/21 19:59 Est GFR (MDRD) Non-Af > 60 (>60) 03/09/21 19:59 Glucose 102 mg/dL (65-99) H 03/09/21 19:59 Calcium 8.9 mg/dL (8.5-10.1) 03/09/21 19:59 Corrected Calcium 9.9 mg/dL (8.5-10.1) 03/09/21 19:59 Total Bilirubin 0.20 mg/dL (0.2-1.0) 03/09/21 19:59 AST 32 Units/L (15-37) 03/09/21 19:59 ALT 35 Units/L (12-78) 03/09/21 19:59 Alkaline Phosphatase 186 Units/L (46-116) H 03/09/21 19:59 Total Protein 8.0 g/dL (6.4-8.2) 03/09/21 19:59 Albumin 2.7 g/dL (3.4-5.0) L 03/09/21 19:59 Globulin 5.3 g/dL (2.5-4.5) H 03/09/21 19:59 Albumin/Globulin Ratio 0.5 Ratio (1.1-2.1) L 03/09/21 19:59 Amylase 1116 Units/L (25-115) H 03/09/21 19:59 Lipase 7607 Units/L (73-393) H 03/09/21 19:59 XRAY XRAY Interpreted by: Radiologist X-ray Results: CT abd/pelvis w/o: No gross acute abnormality seen. 2. Multiple bilateral tiny nonobstructive renal calculi; no ureteral stone or obstructive uropathy seen bilaterally. 3. No evidence for acute appendicitis, bowel herniation/obstruction, colitis or diverticulitis seen. 4. No free fluid, free air, mass lesions, or lymphadenopathy seen. Opioid Opioid Risk Tool Age (Hoang box if 16-45): No History of Preadolescent Sexual Abuse: No Total: 0 Total Score Risk Category: Low Risk Copyright: Judah OLEA predicting aberrant behaviors Diagnosis Discharge Problem: Acute pancreatitis Qualifiers: Pancreatitis type: other Acute pancreatitis complication: no infection or necrosis Qualified Code(s): K85.80 - Other acute pancreatitis without necrosis or infection Instructions Forms: Patient Portal Social Distancing
[2021-03-09 20:09] LABS: BASOPHILS # (AUTO) 0.1 X10^3/uL (0.0-0.1); BASOPHILS % (AUTO) 0.7 % (0.2-1.0); EOSINOPHILS # (AUTO) 0.2 x10^3/uL (0.0-0.2); EOSINOPHILS % (AUTO) 2.1 % (0.9-2.9); HEMATOCRIT 31.4 % (42.0-54.0); HEMOGLOBIN 10.3 g/dL (13.5-18.0); LYMPHOCYTES # (AUTO) 0.8 X10^3/uL (1.3-2.9); LYMPHOCYTES % (AUTO) 7.8 % (21.0-51.0); MEAN CORPUSCULAR HEMOGLOBIN 28.1 pg (27.0-34.0); MEAN CORPUSCULAR HGB CONC 32.7 g/dL (33.0-35.0); MEAN CORPUSCULAR VOLUME 86.2 fL (80.0-100.0); MEAN PLATELET VOLUME 6.4 fL (7.4-11.0); MONOCYTES % (AUTO) 9.4 % (0.0-13.0); NEUTROPHILS # (AUTO) 8.7 x10^3/uL (2.2-4.8); PLATELET COUNT 448 X10^3/uL (150.0-450.0); RED BLOOD COUNT 3.65 X10^6/uL (4.7-6.0); WHITE BLOOD COUNT 10.9 X10^3/uL (3.6-10.0)
[2021-03-09] MEDS ORDERED: NS 1000 ML 1,000 ML ONE ×2 (20:13→22:22)
[2021-03-09] MEDS ORDERED: ZOFRAN INJ 4 MG VIAL ONE (20:13)
[2021-03-09] MEDS ORDERED: MORPHINE SULFATE INJ 2 MG INJ ONE (20:13)
[2021-03-09 20:25] LABS: ALANINE AMINOTRANSFERASE 35 Units/L (12-78); ALBUMIN 2.7 g/dL (3.4-5.0); ALKALINE PHOSPHATASE 186 Units/L (46-116); ASPARTATE AMINO TRANSFERASE 32 Units/L (15-37); BLOOD UREA NITROGEN 15 mg/dL (7-18); CALCIUM 8.9 mg/dL (8.5-10.1); CARBON DIOXIDE 28.7 mmol/L (21-32); CHLORIDE 103 mmol/L (98-107); COR CA(FOR HYPOALB) 9.9 mg/dL (8.5-10.1); CREATININE 0.79 mg/dL (0.70-1.30); SODIUM 138 mmol/L (136-145); eGFR NON BLACK RACES > 60 (>60)
[2021-03-09 20:27] LABS: ANISOCYTOSIS 2+; PLATELET MORPHOLOGY COMMENT NORMAL (NORMAL)
--- NOTE | 2021-03-09 20:33 | CT ---
EXAM: CT ABDOMEN AND PELVIS WITHOUT INTRAVENOUS CONTRASTHISTORY: Epigastric abdominal pain. Nausea and vomiting.TECHNIQUE: Spiral axial CT images are obtained through the abdomen and pelvis without the administration of intravenous contrast. Additional coronal and sagittal reformatted images are reconstructed.DOSIMETRY: Total DLP 377.2 mGycm; CTDI 7.7 mGyCOMPARISON: CT abdomen and pelvis dated February 06, 2021.FINDINGS:GASTROINTESTINAL TRACT: There is no evidence for bowel herniation, bowel obstruction, colitis or diverticulitis. A normal-appearing appendix is seen.GENITOURINARY SYSTEM: There are multiple tiny bilateral nonobstructing renal calculi. The kidneys are otherwise unremarkable. There is no ureteral calculus or stigmata of obstructive uropathy. The urinary bladder, seminal vesicles, prostate gland appear grossly unremarkable for a non-dedicated exam.CT ABDOMEN: Severe aortoiliac atherosclerotic disease, without aneurysm formation. The liver, spleen, pancreas, adrenal glands, gallbladder, and inferior vena cava are within normal limits for a noncontrast CT scan. There is no intra-abdominal or retroperitoneal lymphadenopathy, free fluid, or free air seen. No abdominal herniation is noted.CT PELVIS: The visualized bony structures are within normal limits. No pelvic sidewall or inguinal lymphadenopathy is seen. No inguinal herniation is noted. No free fluid or free air is seen.LUNG BASES: The lung bases are clear.IMPRESSION:1. No gross acute abnormality seen.2. Multiple bilateral tiny nonobstructive renal calculi; no ureteral stone or obstructive uropathy seen bilaterally.3. No evidence for acute appendicitis, bowel herniation/obstruction, colitis or diverticulitis seen.4. No free fluid, free air, mass lesions, or lymphadenopathy seen.Electronically signed by: Marion Mosley (Mar 09, 2021 20:31:39)
[2021-03-09 20:58] LABS: AMYLASE 1116 Units/L (25-115); LIPASE 7607 Units/L (73-393)
[2021-03-09] MEDS ORDERED: DILAUDID INJ IVP ONE (21:25)
[2021-03-09] MEDS ORDERED: APRESOLINE INJ 20 MG VIAL IVP PRN (21:27)
[2021-03-09] MEDS ORDERED: ZOFRAN INJ 4 MG VIAL IVP PRN (21:27)
[2021-03-09] MEDS ORDERED: DILAUDID INJ ONE (21:27)
[2021-03-09] MEDS ORDERED: HumuLIN R SC PRN (21:32)
[2021-03-09] MEDS: NS 1000 ML 1,000 ML IV SCH (22:24)
[2021-03-10 01:56] VITALS: BMI 15.4
[2021-03-10] MEDS: DILAUDID INJ IVP PRN ×3 (02:00→14:46)
[2021-03-10 05:34] LABS: BASOPHILS # (AUTO) 0.1 X10^3/uL (0.0-0.1); BASOPHILS % (AUTO) 0.4 % (0.2-1.0); EOSINOPHILS # (AUTO) 0.1 x10^3/uL (0.0-0.2); EOSINOPHILS % (AUTO) 0.7 % (0.9-2.9); HEMATOCRIT 29.7 % (42.0-54.0); HEMOGLOBIN 9.8 g/dL (13.5-18.0); MEAN CORPUSCULAR HEMOGLOBIN 27.9 pg (27.0-34.0); MEAN CORPUSCULAR HGB CONC 32.9 g/dL (33.0-35.0); MEAN CORPUSCULAR VOLUME 84.8 fL (80.0-100.0); MEAN PLATELET VOLUME 6.9 fL (7.4-11.0); MONOCYTES % (AUTO) 8.1 % (0.0-13.0); NEUTROPHILS % (AUTO) 82.8 % (42.0-75.0); PLATELET COUNT 445 X10^3/uL (150.0-450.0); RED CELL DISTRIBUTION WIDTH 22.8 % (11.6-16.5); WHITE BLOOD COUNT 12.1 X10^3/uL (3.6-10.0)
[2021-03-10 05:51] LABS: ALANINE AMINOTRANSFERASE 26 Units/L (12-78); ALBUMIN 2.4 g/dL (3.4-5.0); ALKALINE PHOSPHATASE 171 Units/L (46-116); ASPARTATE AMINO TRANSFERASE 28 Units/L (15-37); BLOOD UREA NITROGEN 11 mg/dL (7-18); CALCIUM 8.4 mg/dL (8.5-10.1); CARBON DIOXIDE 27.1 mmol/L (21-32); CHLORIDE 104 mmol/L (98-107); COR CA(FOR HYPOALB) 9.7 mg/dL (8.5-10.1); CREATININE 0.64 mg/dL (0.70-1.30); SODIUM 139 mmol/L (136-145); TOTAL PROTEIN 7.2 g/dL (6.4-8.2); eGFR NON BLACK RACES > 60 (>60)
[2021-03-10 06:15] LABS: AMYLASE 1199 Units/L (25-115)
[2021-03-10 06:16] LABS: ANISOCYTOSIS 2+; LIPASE 3733 Units/L (73-393); PLATELET MORPHOLOGY COMMENT NORMAL (NORMAL)
[2021-03-10] MEDS: NS 1000 ML 1,000 ML IV SCH ×2 (06:35→14:20)
[2021-03-10 09:51] LABS: CHOL/HDL RATIO 3.7 (0.0-5.0)
--- NOTE | 2021-03-10 10:42 | DR.H&P ---
H&P History & Physical for Day of: H&P Date: 03/10/21 Chief Complaint Chief Complaint: Abdominal pain Allergies Allergies Allergy/AdvReac Type Severity Reaction Status Date / Time No Known Drug Allergies Allergy Verified 10/18/20 10:19 History of Present Illness History of Present Illness: Pt is a 60 year old male past medical history Hypertension, CAD, COPD presenting after having acute abdominal pain that started yesterday afternoon. Pt reports that he only ate a banana sandwich that afternoon and later that night had sharp diffuse abdominal pain. Associated with nausea. Denies fevers, chills. Labs/imaging: Wbc 12.1, Hgb 9.8, Plt 445, Na 139, K 4.3, Creatinine 0.64, Glucose 92, AST 28, ALT 26, ALKP 171, Amylase 1116>1199, Lipase 7607>3733, CTAP: 1. No gross acute abnormality seen. 2. Multiple bilateral tiny nonobstructive renal calculi; no ureteral stone or obstructive uropathy seen bilaterally. 3. No evidence for acute appendicitis, bowel herniation/obstruction, colitis or diverticulitis seen. 4. No free fluid, free air, mass lesions, or lymphadenopathy seen. CTAP does not reveal acute findings suggestive of pancreatitis, however elevated lipase enzyme and clinically patient on exam suggestive of acute pancreatitis. Will start patient on IVF NS@150ml/h, NPO except medications, Dilaudid prn for lima, zofran for nausea. Will get a lipid panel. Restart home medications. Continue to monitor and follow up labs/imaging in the morning. Past Medical History Past Medical History: Anxiety, Arthritis, COPD, Coronary Artery Disease, Dyslipidemia and Hypertension Additional Medical History: HX COLON CANCER Past Surgical History Surgical History: CABG/Valve Surgery and Other Family History Family Medical History: Cancer, [place] and Hypertension Social History Does patient currently use any type of tobacco product: Yes Have you used tobacco products in the last 12 months: Yes Type of Tobacco Use: Cigarettes How many years tobacco product used: 30 Does any household member use tobacco: No Alcohol Use: None Drug Use: None Medications Home Medications: No Known Drug Allergies Allergy (Verified 10/18/20 10:19) Labs Result Diagrams: 03/10/21 04:49 03/10/21 04:49 Labs: Laboratory WBC 12.1 X10^3/uL (3.6-10.0) H 03/10/21 04:49 RBC 3.50 X10^6/uL (4.7-6.0) L 03/10/21 04:49 Hgb 9.8 g/dL (13.5-18.0) L 03/10/21 04:49 Hct 29.7 % (42.0-54.0) L 03/10/21 04:49 MCV 84.8 fL (80.0-100.0) 03/10/21 04:49 MCH 27.9 pg (27.0-34.0) 03/10/21 04:49 MCHC 32.9 g/dL (33.0-35.0) L 03/10/21 04:49 RDW 22.8 % (11.6-16.5) H 03/10/21 04:49 Plt Count 445 X10^3/uL (150.0-450.0) 03/10/21 04:49 Plt Count Comment Adequate (ADEQUATE) 03/10/21 04:49 MPV 6.9 fL (7.4-11.0) L 03/10/21 04:49 Neut % (Auto) 82.8 % (42.0-75.0) H 03/10/21 04:49 Lymph % (Auto) 8.0 % (21.0-51.0) L 03/10/21 04:49 [place] % (Auto) 8.1 % (0.0-13.0) 03/10/21 04:49 Eos % (Auto) 0.7 % (0.9-2.9) L 03/10/21 04:49 Baso % (Auto) 0.4 % (0.2-1.0) 03/10/21 04:49 Neut # (Auto) 10.0 x10^3/uL (2.2-4.8) H 03/10/21 04:49 Lymph # (Auto) 1.0 X10^3/uL (1.3-2.9) L 03/10/21 04:49 [place] # (Auto) 1.0 x10^3/uL (0.3-0.8) H 03/10/21 04:49 Eos # (Auto) 0.1 x10^3/uL (0.0-0.2) 03/10/21 04:49 Baso # (Auto) 0.1 X10^3/uL (0.0-0.1) 03/10/21 04:49 Absolute Nucleated RBC 0.0 /100WBC 03/10/21 04:49 Plt Morphology Comment Normal (NORMAL) 03/10/21 04:49 RBC Morphology Abnormal (NORMAL) 03/10/21 04:49 Anisocytosis 2+ A 03/10/21 04:49 Sodium 139 mmol/L (136-145) 03/10/21 04:49 Corrected Sodium TNP 03/10/21 04:49 Potassium 4.3 mmol/L (3.5-5.1) 03/10/21 04:49 Chloride 104 mmol/L (98-107) 03/10/21 04:49 Carbon Dioxide 27.1 mmol/L (21-32) 03/10/21 04:49 BUN 11 mg/dL (7-18) 03/10/21 04:49 Creatinine 0.64 mg/dL (0.70-1.30) L 03/10/21 04:49 Est GFR (MDRD) Af Amer > 60 (>60) 03/10/21 04:49 Est GFR (MDRD) Non-Af > 60 (>60) 03/10/21 04:49 Glucose 92 mg/dL (65-99) 03/10/21 04:49 POC Glucose (mg/dL) 90 mg/dL (65-99) 03/10/21 05:41 Calcium 8.4 mg/dL (8.5-10.1) L 03/10/21 04:49 Corrected Calcium 9.7 mg/dL (8.5-10.1) 03/10/21 04:49 Total Bilirubin 0.30 mg/dL (0.2-1.0) 03/10/21 04:49 AST 28 Units/L (15-37) 03/10/21 04:49 ALT 26 Units/L (12-78) 03/10/21 04:49 Alkaline Phosphatase 171 Units/L (46-116) H 03/10/21 04:49 Total Protein 7.2 g/dL (6.4-8.2) 03/10/21 04:49 Albumin 2.4 g/dL (3.4-5.0) L 03/10/21 04:49 Globulin 4.8 g/dL (2.5-4.5) H 03/10/21 04:49 Albumin/Globulin Ratio 0.5 Ratio (1.1-2.1) L 03/10/21 04:49 Triglycerides 75 mg/dL (0-150) 03/10/21 04:49 Cholesterol 107 mg/dL (0-200) 03/10/21 04:49 LDL Cholesterol, Calc 63 mg/dL (0-100) 03/10/21 04:49 HDL Cholesterol 29 mg/dL (40-60) L 03/10/21 04:49 Cholesterol/HDL Ratio 3.7 (0.0-5.0) 03/10/21 04:49 Amylase 1199 Units/L (25-115) H 03/10/21 04:49 Lipase 3733 Units/L (73-393) H 03/10/21 04:49 SARS-CoV-2 (PCR) Negative (NEGATIVE) 03/09/21 21:45 Influenza Type A (PCR) Negative (NEGATIVE) 03/09/21 21:45 Influenza Type B (PCR) Negative (NEGATIVE) 03/09/21 21:45 RSV (PCR) Negative (NEGATIVE) 03/09/21 21:45 Review of Systems Constitutional: No Symptoms Reported Eyes: No Symptoms Reported ENT: No Symptoms Reported Respiratory: No Symptoms Reported Cardiovascular: No Symptoms Reported Gastrointestinal: Nausea and Abdominal Pain; denies Vomiting, Diarrhea and Constipation Genitourinary: No Symptoms Reported Musculoskeletal: No Symptoms Reported Skin: No Symptoms Reported Neurological: No Symptoms Reported Physical Exam Vital Signs: Temperature 98 F Pulse Rate [Radial] 70 Pulse Rate 67 Respiratory Rate 20 Blood Pressure [Left Arm] 134/63 Blood Pressure 147/73 O2 Sat by Pulse Oximetry 94 Oriented: Normal Eyes: Normal Ear: Normal Nose: Normal Throat: Normal Respiratory: Diminished Throughout Cardiovascular: Normal : Normal Auscultation: Bowel Sounds: Increased Palpation: Normal Tenderness: Moderate Skin: Normal Musculoskeletal: Normal Psychiatric: Normal Mood Description: Calm and Appropriate Affect: Normal Speech Pattern: Clear and Appropriate Assessment/Plan (1) Acute pancreatitis: Qualifiers: Acute pancreatitis complication: no infection or necrosis Pancreatitis type: other Qualified Code(s): K85.80 - Other acute pancreatitis without necrosis or infection Status: Acute Plan: NPO except meds, IVF Pain control Review H&P Reviewed: Yes Patient was examined?: Yes
[2021-03-10] MEDS ORDERED: NICOTINE PATCH TD SCH (14:00)
[2021-03-10 17:22] VITALS: BP 148/70
[2021-03-10] MEDS ORDERED: CHECK PATCH XX SCH (21:00)
== END 2021-03-10 19:29 | disposition left against medical advice (07) | DRG 440 ==
LOC: ER 18:08 → MED/SURG 23:58
PROVIDERS: ADMIT Internal Medicine; ATTEND Internal Medicine
DX: I25.10 Atherosclerotic heart disease of native coronary artery without angina pectoris; R10.13 Epigastric pain; Z20.822 Contact with and (suspected) exposure to COVID-19; I10 Essential (primary) hypertension; J44.9 Chronic obstructive pulmonary disease, unspecified; Z53.29 Procedure and treatment not carried out because of patient's decision for other reasons; E78.2 Mixed hyperlipidemia; R10.84 Generalized abdominal pain; K85.80 Other acute pancreatitis without necrosis or infection

== ENCOUNTER 2025-01-23 09:53 | Observation (INO) ==
--- NOTE | 2025-01-23 10:19 | DR.DIZZY ---
HPI Time seen Time Seen by Provider: 01/23/25 10:17 HPI Comment HPI Comment: History as below. Complaint Chief Complaint Doctor Comments: Patient is 64yr old male with chronic back pain unable to ambulate is in ER for increasing weakness, confusion and abdominal pain for few days that is worse today. Patient is nauseated but denies fever. COVID-19 Coronavirus risk:travel/contact w/high risk person: No Has patient experienced Coronavirus symptoms: No Nurses Notes Reviewed Nurses Notes Review: Yes Context Stroke Symptoms: Acute confusion PMH PMH Past Medical History: Anemia, Anxiety, Arthritis, COPD, Coronary Artery Disease, Dyslipidemia and Hypertension Past Surgical History: Yes Surgical History: CABG/Valve Surgery, Cholecystectomy and Other Family History Family Medical History: Cancer, [place] and Hypertension Social History Do you use any recreational Drugs:: No Travel Risk Coronavirus risk:travel/contact w/high risk person: No Has patient experienced Coronavirus symptoms: No ROS Review of Systems Constitutional: No Symptoms Reported Eyes: No Symptoms Reported ENTM: No Symptoms Reported Respiratoy: Moist Cough and Short of Breath (on exertion.) Cardiovascular: No Symptoms Reported; negative Chest Pain Gastrointestinal/Abdominal: Abdominal Pain and Nausea; negative Diarrhea or Vomiting Genitourinary: No Symptoms Reported Neurological: Problems Walking Musculoskeletal: See HPI, Back Pain, Back (sacral decubitus ulcers.) and Foot (heel pressure ulcer.) Integumentary: See HPI and Wound (decubitus ulcers.) Hematologic/Lymphatic: No Symptoms Reported, See HPI, Anemia and Easy Bruising Endocrine: No Symptoms Reported and See HPI; negative Increased Thirst or Increased Urine Psychiatric: See HPI and Depression All Other Systems: Reviewed and Negative PE Vital Signs Vitals: Vital Signs Temperature 98.2 F Pulse Rate 90 Pulse Rate 89 Pulse Rate 91 Pulse Rate 92 Pulse Rate 88 Pulse Rate 83 Pulse Rate 97 Pulse Rate 95 Pulse Rate 93 Pulse Rate 88 Respiratory Rate 20 Respiratory Rate 20 Respiratory Rate 18 Blood Pressure 111/68 Blood Pressure 122/65 Blood Pressure 116/66 Blood Pressure 119/68 Blood Pressure 120/70 Blood Pressure 123/68 Blood Pressure 120/70 O2 Sat by Pulse Oximetry 92 O2 Sat by Pulse Oximetry 98 O2 Sat by Pulse Oximetry 96 O2 Sat by Pulse Oximetry 95 O2 Sat by Pulse Oximetry 99 O2 Sat by Pulse Oximetry 96 O2 Sat by Pulse Oximetry 97 O2 Sat by Pulse Oximetry 98 O2 Sat by Pulse Oximetry 88 O2 Sat by Pulse Oximetry 97 O2 Sat by Pulse Oximetry 97 General Limitations: No Limitations General Appearance: Alert Head Head Exam: Normal Inspection Eyes Eye exam: Normal Appearance; negative PERRL, EOMI, Scleral Icterus or Conjunctival Injection ENT ENT Exam: Normal Exam, Normal Oropharynx, Normal External Ear Exam and TM's Normal Bilaterally Neck Neck Exam: Normal Inspection and Trachea Midline; negative Tenderness Chest Chest Inspection: Normal Inspection and Symmetric Chest Wall Rise; negative Tenderness Respiratory Respiratory Exam: Normal Lung Sounds Bilat; negative Accessory Muscle Use, Chest Wall Tenderness or Respiratory Distress Respiratory Exam: Bilateral: Rhonchi Cardiovascular Cardiovascular Exam: Regular Rate, Normal Rhythm and Normal Heart Sounds; negative Systolic Murmur or Diastolic Murmur Abdominal Exam Abdominal Exam: Normal Inspection, Normal Bowel Sounds and Soft; negative Tenderness Rectal Rectal Exam: Deferred Extremeties Extremities Exam: Normal Inspection, Normal Capillary Refill and Other (heel pressure ulcer.) Back Back Exam: Normal Inspection and Other (sacral decubitus ulcer.); negative (R) CVA Tenderness or (L) CVA Tenderness Neurologic Neurological Exam: Alert and Oriented X3 Patient Oriented To: Person, Place and Time Speech: Fluid Speech Psychiatric Psychiatric Exam: Normal Affect and Normal Mood Skin Skin Exam: Warm, Pallor and Other (decubitus ulcers back and heel.) MDM Differential Diagnosis Differential Diagnosis: Anemia, CVA, Dehydration, Electrolyte disorder and Hypoglycemia COURSE Treatment Treatment: See orders done while patient was in ER. Labs and CT discussed. Patient, have low hemoglobin with symptomatic anemia. Patient admitted to hospital for further management. Education/Counseling Education/Counseling: Patient and Family Educated On: Diagnosis ROR Labs Reviewed Laboratory Results Reviewed?: Yes 01/24/25 04:00 01/24/25 04:00 Laboratory: WBC 10.9 X10^3/uL (3.6-10.0) H 01/23/25 10:00 RBC 3.06 X10^6/uL (4.7-6.0) L 01/23/25 10:00 Hgb 7.6 g/dL (13.5-18.0) L 01/23/25 10:00 Hct 23.1 % (42.0-54.0) L 01/23/25 10:00 MCV 75.5 fL (80.0-100.0) L 01/23/25 10:00 MCH 24.9 pg (27.0-34.0) L 01/23/25 10:00 MCHC 33.0 g/dL (33.0-35.0) 01/23/25 10:00 RDW 27.0 % (11.6-16.5) H 01/23/25 10:00 Plt Count 427 X10^3/uL (150.0-450.0) 01/23/25 10:00 Plt Count Comment Adequate (ADEQUATE) 01/23/25 10:00 MPV 8.2 fL (7.4-11.0) 01/23/25 10:00 Neut % (Auto) 79.7 % (42.0-75.0) H 01/23/25 10:00 Lymph % (Auto) 5.0 % (21.0-51.0) L 01/23/25 10:00 [place] % (Auto) 13.1 % (0.0-13.0) H 01/23/25 10:00 Eos % (Auto) 1.2 % (0.9-2.9) 01/23/25 10:00 Baso % (Auto) 1.0 % (0.2-1.0) 01/23/25 10:00 Neut # (Auto) 8.7 x10^3/uL (2.2-4.8) H 01/23/25 10:00 Lymph # (Auto) 0.5 X10^3/uL (1.3-2.9) L 01/23/25 10:00 [place] # (Auto) 1.4 x10^3/uL (0.3-0.8) H 01/23/25 10:00 Eos # (Auto) 0.1 x10^3/uL (0.0-0.2) 01/23/25 10:00 Baso # (Auto) 0.1 X10^3/uL (0.0-0.1) 01/23/25 10:00 Absolute Nucleated RBC 0.1 /100WBC 01/23/25 10:00 Plt Morphology Comment Normal (NORMAL) 01/23/25 10:00 RBC Morphology Abnormal (NORMAL) 01/23/25 10:00 Dimorphic RBCs Slight 01/23/25 10:00 Hypochromasia Slight A 01/23/25 10:00 Anisocytosis 3+ A 01/23/25 10:00 Absolute Retic 0.0717 10^6/uL 01/23/25 10:00 Percent Retic 2.31 % (0.8-2.2) H 01/23/25 10:00 Sodium 135 mmol/L (136-145) L 01/23/25 10:00 Corrected Sodium 136 mmol/L (136-145) 01/23/25 10:00 Potassium 4.0 mmol/L (3.5-5.1) 01/23/25 10:00 Chloride 100 mmol/L (98-107) 01/23/25 10:00 Carbon Dioxide 27.6 mmol/L (21-32) 01/23/25 10:00 BUN 15 mg/dL (7-18) 01/23/25 10:00 Creatinine 0.73 mg/dL (0.70-1.30) 01/23/25 10:00 Est GFR (MDRD) Af Amer > 60 (>60) 01/23/25 10:00 Est GFR (MDRD) Non-Af > 60 (>60) 01/23/25 10:00 Glucose 139 mg/dL (65-99) H 01/23/25 10:00 Calcium 8.3 mg/dL (8.5-10.1) L 01/23/25 10:00 Corrected Calcium 10.5 mg/dL (8.5-10.1) H 01/23/25 10:00 Iron 10 ug/dL (50-175) L 01/23/25 10:00 TIBC 100 ug/dL (250-450) L 01/23/25 10:00 Transferrin 101 mg/dL (202-364) L 01/23/25 10:00 Ferritin 534 ng/mL (26-388) H 01/23/25 10:00 Total Bilirubin 0.60 mg/dL (0.2-1.0) 01/23/25 10:00 AST 61 Units/L (15-37) H 01/23/25 10:00 ALT 37 Units/L (12-78) 01/23/25 10:00 Alkaline Phosphatase 392 Units/L (46-116) H 01/23/25 10:00 Total Protein 6.4 g/dL (6.4-8.2) 01/23/25 10:00 Albumin 1.2 g/dL (3.4-5.0) L 01/23/25 10:00 Globulin 5.2 g/dL (2.5-4.5) H 01/23/25 10:00 Albumin/Globulin Ratio 0.2 Ratio (1.1-2.1) L 01/23/25 10:00 Amylase 51 Units/L (25-115) 01/23/25 10:00 Lipase 50 Units/L (16-77) 01/23/25 10:00 Vitamin B12 867 pg/mL (193-986) 01/23/25 10:00 Folate 4.8 ng/mL (>8.6) L 01/23/25 10:00 Specimen Type Clean catch urine 01/23/25 12:15 Urine Color [place] (YELLOW) 01/23/25 12:15 Urine Appearance Slightly hazy (CLEAR) 01/23/25 12:15 Urine pH 6.0 (5.0 - 8.0) 01/23/25 12:15 Ur Specific [place] 1.015 (1.000-1.030) 01/23/25 12:15 Urine Protein 2+ (NEGATIVE) 01/23/25 12:15 Urine Glucose (UA) Negative (NEGATIVE) 01/23/25 12:15 Urine Ketones Negative (NEGATIVE) 01/23/25 12:15 Urine Blood Negative (NEGATIVE) 01/23/25 12:15 Urine Nitrite Negative (NEGATIVE) 01/23/25 12:15 Urine Bilirubin Negative (NEGATIVE) 01/23/25 12:15 Urine Urobilinogen 3+ (NORMAL) 01/23/25 12:15 Ur Leukocyte Esterase 1+ (NEGATIVE) 01/23/25 12:15 Urine RBC 0-2 /HPF (0-3) 01/23/25 12:15 Urine WBC 0-2 /HPF (0-5) 01/23/25 12:15 Ur Squamous Epith Cells Rare /HPF (NEGATIVE) 01/23/25 12:15 Urine Bacteria Trace /HPF (NEGATIVE) 01/23/25 12:15 Hyaline Casts Few /LPF (NEGATIVE) 01/23/25 12:15 Urine Mucus Few /HPF (NEGATIVE) 01/23/25 12:15 Ur Culture Indicated? No/not indicated 01/23/25 12:15 Stool Occult Blood Positive (NEGATIVE) A 01/23/25 12:35 Stl Occult Blood (IFOB) Cancelled 01/23/25 12:15 Blood Type A NEGATIVE 01/23/25 12:36 Antibody Screen Negative 01/23/25 12:36 Crossmatch See Detail 01/23/25 12:36 XRAY XRAY Interpreted by: Radiologist (Reports noted.) Opioid Opioid Risk Tool Age (Hoang box if 16-45): No History of Preadolescent Sexual Abuse: No Total: 0 Total Score Risk Category: Low Risk Copyright: Judah OLEA predicting aberrant behaviors Discharge Plan Diagnosis Discharge Problem: Symptomatic anemia, Dizziness, Weakness generalized, Acute dehydration GI bleeding Qualifiers: GI bleed type/associated pathology: melena Qualified Code(s): K92.1 - Melena Chronic back pain Qualifiers: Back pain location: low back pain Back pain laterality: bilateral Sciatica presence: without sciatica Qualified Code(s): M54.50 - Low back pain, unspecified Chronic pancreatitis Qualifiers: Pancreatitis type: unspecified pancreatitis type Qualified Code(s): K86.1 - Other chronic pancreatitis Abdominal pain Qualifiers: Abdominal location: generalized Qualified Code(s): R10.84 - Generalized abdominal pain Pressure ulcer Qualifiers: Pressure injury location: sacral region Pressure injury stage: unspecified pressure injury stage Qualified Code(s): L89.159 - Pressure ulcer of sacral region, unspecified stage Discharge Plan Patient Disposition: ADMITTED INPATIENT Condition: Stable
[2025-01-23 10:21] VITALS: BMI 16.5
[2025-01-23] MEDS: DUONEB 0.5 MG/3 MG (3 mL) NEB ONE (10:42)
[2025-01-23] MEDS: NS 1,000 ML IV 1,000 ML IV ONE (10:46)
[2025-01-23 10:55] LABS: BASOPHILS # (AUTO) 0.1 X10^3/uL (0.0-0.1); EOSINOPHILS # (AUTO) 0.1 x10^3/uL (0.0-0.2); EOSINOPHILS % (AUTO) 1.2 % (0.9-2.9); HEMATOCRIT 23.1 % (42.0-54.0); HEMOGLOBIN 7.6 g/dL (13.5-18.0); LYMPHOCYTES # (AUTO) 0.5 X10^3/uL (1.3-2.9); MEAN CORPUSCULAR HEMOGLOBIN 24.9 pg (27.0-34.0); MEAN CORPUSCULAR VOLUME 75.5 fL (80.0-100.0); MEAN PLATELET VOLUME 8.2 fL (7.4-11.0); MONOCYTES # (AUTO) 1.4 x10^3/uL (0.3-0.8); MONOCYTES % (AUTO) 13.1 % (0.0-13.0); NEUTROPHILS # (AUTO) 8.7 x10^3/uL (2.2-4.8); NEUTROPHILS % (AUTO) 79.7 % (42.0-75.0); PLATELET COUNT 427 X10^3/uL (150.0-450.0); RED BLOOD COUNT 3.06 X10^6/uL (4.7-6.0); WHITE BLOOD COUNT 10.9 X10^3/uL (3.6-10.0)
[2025-01-23 11:02] LABS: ALANINE AMINOTRANSFERASE 37 Units/L (12-78); ALBUMIN 1.2 g/dL (3.4-5.0); ALKALINE PHOSPHATASE 392 Units/L (46-116); AMYLASE 51 Units/L (25-115); ASPARTATE AMINO TRANSFERASE 61 Units/L (15-37); BLOOD UREA NITROGEN 15 mg/dL (7-18); CALCIUM 8.3 mg/dL (8.5-10.1); CARBON DIOXIDE 27.6 mmol/L (21-32); CHLORIDE 100 mmol/L (98-107); COR CA(FOR HYPOALB) 10.5 mg/dL (8.5-10.1); COR NA(FOR HYPERGLY) 136 mmol/L (136-145); CREATININE 0.73 mg/dL (0.70-1.30); GLUCOSE 139 mg/dL (65-99); LIPASE 50 Units/L (16-77); SODIUM 135 mmol/L (136-145); TOTAL PROTEIN 6.4 g/dL (6.4-8.2); eGFR NON BLACK RACES > 60 (>60)
[2025-01-23 11:12] LABS: HYPOCHROMASIA SLIGHT; PLATELET MORPHOLOGY COMMENT NORMAL (NORMAL)
[2025-01-23 11:13] LABS: ANISOCYTOSIS 3+
[2025-01-23] MEDS ORDERED: MORPHINE SULFATE INJ 4 MG ONE (11:19)
[2025-01-23] MEDS ORDERED: ZOFRAN INJ 4 MG VIAL ONE (11:20)
[2025-01-23] MEDS: ZOFRAN INJ 4 MG VIAL IVP ONE (11:22)
[2025-01-23] MEDS: MORPHINE SULFATE INJ 4 MG IVP ONE (11:22)
[2025-01-23] MEDS: NICOTINE PATCH TD ONE (11:49)
--- NOTE | 2025-01-23 11:51 | CT ---
EXAMINATION: ABDOMEN/PELVIS W/O CON HISTORY: ABD PAIN; KIDNEY STONES, COPD, HTN, hodgkins lymphoma remission CABG/VALVE SURGERY, CHOLECYSTECTOM . COMPARISON: CT abdomen and pelvis 10/18/2023 TECHNIQUE: Unenhanced axial images were obtained through the abdomen and pelvis using renal stone protocol. Reformatted images were obtained as well. Lack of oral and IV contrast limits diagnostic sensitivity The above CT scan was done with automated exposure control and the mA and kV was adjusted to obtain quality images according to patient size. FINDINGS: Lung bases: Small bilateral pleural effusions are noted with atelectasis in the lung bases. Bronchial thickening is present. Liver: No acute finding or focal lesion. GB/Biliary: Cholecystectomy. No dilated duct. Study degraded by excessive respiratory motion. Spleen: Normal size and density Pancreas: Sequela of chronic pancreatitis with multiple punctate calcification. Mildly dilated pancreatic duct. This is chronic and unchanged. No obvious pseudocyst. Adrenal Glands: No mass Kidneys: No obstructing stone, hydronephrosis or solid lesion. Multiple punctate nonobstructing stones in the kidneys. Left renal cysts unchanged including hemorrhagic appearing cyst. Abdominal aorta: Tapers normally. Atherosclerotic calcification. Retroperitoneum: No pathologically enlarged lymph nodes Bowel: No thickened or dilated loops of bowel, free air, pneumatosis or abscess. Large amount of stool in the colon. Appendix not definitely visualized. No CT evidence for obstruction, diverticulitis or appendicitis. Moderate ascites. Bladder/: Ureters and bladder are unremarkable. Prostate and seminal vesicles unremarkable for age. Prostate calcification. Fem-fem arterial bypass present. Osseous: Dextroscoliosis with multilevel degenerative changes in the spine. No acute findings or bony lesions. IMPRESSION: Small bilateral effusions with atelectasis in the lung bases. Moderate ascites. No CT evidence for obstruction, appendicitis, diverticulitis or obstructing renal stone. Nonobstructing stones in both kidneys THIS IS AN ELECTRONICALLY VERIFIED FINAL REPORT 01/23/2025 11:36 AM - Electronically signed by Mateo Buchanan MD
--- NOTE | 2025-01-23 11:51 | CT ---
EXAM: BRAIN W/O CON HISTORY: AMS; HX- KIDNEY STONES, COPD, HTN, hodgkins lymphoma remission SX- CABG/VALVE SURGERY, CHOLECYSTECTOM COMPARISON: No relevant prior studies were available for comparison at the time of interpretation.. TECHNIQUE: CT images were obtained. Multiplanar reconstructions were created on a separate workstation and used during interpretation. All CT scans at this facility is dose modulation, iterative reconstruction, and/or weight-based dosing as appropriate to reduce radiation to levels as low as reasonably achievable (ALARA). Postprocessing details, radiation dose, and contrast dose (if applicable) are recorded in the patient's medical record. FINDINGS: Head: Acute findings: There is no intracranial hemorrhage. No mass effect. No intra-axial or extra-axial fluid collection. There is no mass. No tentorial, uncal, or tonsillar herniation. Brain volume and white matter: There is diffuse cortical atrophy. There is hypoattenuation in the supratentorial white matter consistent with chronic microvascular ischemic disease. Ventricles: No hydrocephalus Midline structures: Pituitary gland and corpus callosum are normal. Posterior fossa and skull base: Cerebellum and posterior fossa are within normal limits. Basal cisterns are not effaced. Sinuses and mastoids: Paranasal sinuses and mastoid air cells are predominantly clear. Globes and Orbits: Globes are intact. Bony orbits are intact. Orbital contents are unremarkable. Skull and soft tissues: No depressed skull fracture. Calvarium appears intact. No scalp injury is identified. IMPRESSION: 1. No acute intracranial abnormality THIS IS AN ELECTRONICALLY VERIFIED FINAL REPORT 01/23/2025 11:33 AM - Electronically signed by Louis Lozoya MD
[2025-01-23] MEDS ORDERED: PERCOCET TAB 5/325 MG ONE (12:19)
[2025-01-23] MEDS: PERCOCET TAB 5/325 MG PO ONE (12:20)
[2025-01-23 12:32] LABS: BILIRUBIN,URINE NEGATIVE (NEGATIVE); BLOOD/HEMOGLOBIN,URINE NEGATIVE (NEGATIVE); GLUCOSE, URINE NEGATIVE (NEGATIVE); KETONES,URINE NEGATIVE (NEGATIVE); LEUKOCYTE ESTERASE ,URINE 1+ (NEGATIVE); NITRITES,URINE NEGATIVE (NEGATIVE); PROTEIN,URINE 2+ (NEGATIVE); UROBILINOGEN,URINE 3+ (NORMAL)
[2025-01-23 12:36] LABS: RETICULOCYTE % 2.31 % (0.8-2.2)
[2025-01-23 12:39] LABS: APPEARANCE,URINE SLIGHTLY HAZY (CLEAR); COLOR,URINE AMBER (YELLOW)
[2025-01-23 12:47] LABS: BACTERIA,URINE TRACE /HPF (NEGATIVE); RBC,URINE 0-2 /HPF (0-3); SQUAMOUS EPITHELIAL CELL,UR RARE /HPF (NEGATIVE)
[2025-01-23 12:48] LABS: HYALINE CASTS, URINE FEW /LPF (NEGATIVE)
[2025-01-23] MEDS ORDERED: ZOFRAN INJ 4 MG VIAL IVP PRN (13:41)
[2025-01-23] MEDS ORDERED: BUTT CREAM (COMPOUND) ONE (14:28)
[2025-01-23] MEDS: NS 1,000 ML IV 1,000 ML IV SCH (14:33)
[2025-01-23] MEDS: BUTT CREAM (COMPOUND) TOP PRN (14:34)
[2025-01-23] MEDS: LYRICA CAP 150 mg PO SCH (14:34)
[2025-01-23] MEDS: PROTONIX INJ 40 MG VIAL 80 MG in NS 100 ML IV 80 ML IV SCH (14:34)
[2025-01-23] MEDS ORDERED: NS 500 ML IV 500 ML IV ONE (14:51)
[2025-01-23] MEDS ORDERED: SUPREP BOWEL PREP KIT PO SCH (17:30)
[2025-01-23] MEDS: LIPITOR TAB 80 MG PO SCH (21:02)
[2025-01-23] MEDS: DESYREL PO SCH (21:02)
[2025-01-23] MEDS: PERCOCET TAB 5/325 MG PO PRN (22:34)
[2025-01-23] MEDS ORDERED: NS 250 ML IV 250 ML IV ONE (23:04)
[2025-01-24] MEDS: NS 1,000 ML IV 1,000 ML IV ONE (04:45)
[2025-01-24 04:51] LABS: BASOPHILS % (AUTO) 0.5 % (0.2-1.0); EOSINOPHILS # (AUTO) 0.2 x10^3/uL (0.0-0.2); EOSINOPHILS % (AUTO) 2.3 % (0.9-2.9); HEMATOCRIT 26.5 % (42.0-54.0); HEMOGLOBIN 8.7 g/dL (13.5-18.0); LYMPHOCYTES # (AUTO) 0.3 X10^3/uL (1.3-2.9); MEAN CORPUSCULAR HEMOGLOBIN 25.4 pg (27.0-34.0); MEAN CORPUSCULAR VOLUME 77.1 fL (80.0-100.0); MEAN PLATELET VOLUME 7.9 fL (7.4-11.0); MONOCYTES # (AUTO) 1.5 x10^3/uL (0.3-0.8); MONOCYTES % (AUTO) 16.7 % (0.0-13.0); NEUTROPHILS # (AUTO) 6.7 x10^3/uL (2.2-4.8); NEUTROPHILS % (AUTO) 76.5 % (42.0-75.0); PLATELET COUNT 373 X10^3/uL (150.0-450.0); RED BLOOD COUNT 3.43 X10^6/uL (4.7-6.0); RED CELL DISTRIBUTION WIDTH 23.7 % (11.6-16.5); WHITE BLOOD COUNT 8.8 X10^3/uL (3.6-10.0)
[2025-01-24 05:04] LABS: ANISOCYTOSIS 2+; BURR CELLS SLIGHT; HYPOCHROMASIA SLIGHT; MICROCYTOSIS SLIGHT; PLATELET MORPHOLOGY COMMENT NORMAL (NORMAL); POIKILOCYTOSIS SLIGHT; TARGET CELLS SLIGHT
[2025-01-24 05:06] LABS: ALANINE AMINOTRANSFERASE 28 Units/L (12-78); ALKALINE PHOSPHATASE 302 Units/L (46-116); ASPARTATE AMINO TRANSFERASE 34 Units/L (15-37); BLOOD UREA NITROGEN 14 mg/dL (7-18); CALCIUM 7.6 mg/dL (8.5-10.1); CARBON DIOXIDE 27.1 mmol/L (21-32); CHLORIDE 98 mmol/L (98-107); CREATININE 0.62 mg/dL (0.70-1.30); GLUCOSE 100 mg/dL (65-99); POTASSIUM 4.2 mmol/L (3.5-5.1); SODIUM 131 mmol/L (136-145); TOTAL PROTEIN 5.7 g/dL (6.4-8.2); eGFR NON BLACK RACES > 60 (>60)
[2025-01-24] MEDS: PLAVIX PO SCH (09:16)
[2025-01-24] MEDS: ASPIRIN EC 81 MG PO SCH (10:34)
--- NOTE | 2025-01-24 10:53 | DR.H&P ---
H&P History & Physical for Day of: H&P Date: 01/24/25 Chief Complaint Chief Complaint: Weakness, anemia History of Present Illness History of Present Illness: Mr. Ahumada is a 64-year-old male with a past medical history of anemia, thrombocytopenia, NHL, COPD, CAD, PAD, hypertension and hyperlipidemia presented with generalized weakness and AMS. ER workup showed hemoglobin 7.6, normal renal function. CT brain was negative for acute changes. CTAP showed moderate ascites and small effusions. FOBT was positive. He was admitted for further evaluation for anemia and blood transfusion. Dr. Choudhury was also consulted. Patient does see hematology for anemia and thrombocytopenia. He has had EGD and colonoscopies in the past. He was told to stop aspirin about 6 weeks ago and continue Plavix. Labs/imaging reviewed: - WBC 8.8 hemoglobin 8.7 platelet 373 potassium 4.2 creatinine 0.62 Iron 10 Ferritin high - FOBT positive - CTAP and CT brain reviewed Plan: Admit to ICU for closer monitoring, monitor H&H. Patient has received 2 units of blood since admission. Denies any active bleeding. Follow surgery recommendations, plan for EGD and colonoscopy tomorrow if patient able to tolerate prep. Continue current diet. Continue IV Protonix. Will get chest x- ray. Replace electrolytes as per protocol. Monitor blood pressure. Continue IV fluids. Continue home medications. Monitor a.m. labs and imaging. Time spent for clinical assessment, reviewing labs/imaging, physical exam, decision making and documentation greater than 45 mins. Past Medical History Past Medical History: Anemia, Anxiety, Arthritis, COPD, Coronary Artery Disease, Dyslipidemia and Hypertension Additional Medical History: HX COLON CANCER Past Surgical History Surgical History: Cholecystectomy Family History Family Medical History: Cancer, [place] and Hypertension Social History Does patient currently use any type of tobacco product: Yes Have you used tobacco products in the last 12 months: Yes Type of Tobacco Use: Cigarettes Does any household member use tobacco: Yes Alcohol Use: None Medications Home Medications: Home Medications Medication Instructions Recorded Confirmed Type clopidogrel 75 mg tablet 75 mg PO QDAY 10/18/2301/23 History oxycodone-acetaminophen 10 mg-325 1 tab PO TID 4 01/23/25 History mg tablet aspirin 81 mg tablet 81 mg PO DAILY 01/23/2510/18 History atorvastatin 80 mg tablet 80 mg PO QDAY 01/23/2501/23 History Allergies Allergies Allergy/AdvReac Type Severity Reaction Status Date / Time No Known Drug Allergies Allergy Unknown Verified 01/02/23 12:13 Labs 01/24/25 04:00 01/24/25 04:00 Labs: Laboratory WBC 8.8 X10^3/uL (3.6-10.0) 01/24/25 04:00 RBC 3.43 X10^6/uL (4.7-6.0) L 01/24/25 04:00 Hgb 8.7 g/dL (13.5-18.0) L 01/24/25 04:00 Hct 26.5 % (42.0-54.0) L 01/24/25 04:00 MCV 77.1 fL (80.0-100.0) L 01/24/25 04:00 MCH 25.4 pg (27.0-34.0) L 01/24/25 04:00 MCHC 33.0 g/dL (33.0-35.0) 01/24/25 04:00 RDW 23.7 % (11.6-16.5) H 01/24/25 04:00 Plt Count 373 X10^3/uL (150.0-450.0) 01/24/25 04:00 Plt Count Comment Adequate (ADEQUATE) 01/24/25 04:00 MPV 7.9 fL (7.4-11.0) 01/24/25 04:00 Neut % (Auto) 76.5 % (42.0-75.0) H 01/24/25 04:00 Lymph % (Auto) 4.0 % (21.0-51.0) L 01/24/25 04:00 [place] % (Auto) 16.7 % (0.0-13.0) H 01/24/25 04:00 Eos % (Auto) 2.3 % (0.9-2.9) 01/24/25 04:00 Baso % (Auto) 0.5 % (0.2-1.0) 01/24/25 04:00 Neut # (Auto) 6.7 x10^3/uL (2.2-4.8) H 01/24/25 04:00 Lymph # (Auto) 0.3 X10^3/uL (1.3-2.9) L 01/24/25 04:00 [place] # (Auto) 1.5 x10^3/uL (0.3-0.8) H 01/24/25 04:00 Eos # (Auto) 0.2 x10^3/uL (0.0-0.2) 01/24/25 04:00 Baso # (Auto) 0.0 X10^3/uL (0.0-0.1) 01/24/25 04:00 Absolute Nucleated RBC 0.1 /100WBC 01/24/25 04:00 Total Counted 100 01/24/25 04:00 Neutrophils % (Manual) 85 % (39-76) H 01/24/25 04:00 Lymphocytes % (Manual) 2 % (13-43) L 01/24/25 04:00 Monocytes % (Manual) 12 % (4-9) H 01/24/25 04:00 Eosinophils % (Manual) 1 % (0-6) 01/24/25 04:00 Plt Morphology Comment Normal (NORMAL) 01/24/25 04:00 RBC Morphology Abnormal (NORMAL) 01/24/25 04:00 Dimorphic RBCs Slight 01/24/25 04:00 Hypochromasia Slight A 01/24/25 04:00 Poikilocytosis Slight A 01/24/25 04:00 Anisocytosis 2+ A 01/24/25 04:00 Microcytosis Slight A 01/24/25 04:00 Target Cells Slight A 01/24/25 04:00 Cj Cells Slight A 01/24/25 04:00 Absolute Retic 0.0717 10^6/uL 01/23/25 10:00 Percent Retic 2.31 % (0.8-2.2) H 01/23/25 10:00 Sodium 131 mmol/L (136-145) L 01/24/25 04:00 Corrected Sodium TNP 01/24/25 04:00 Potassium 4.2 mmol/L (3.5-5.1) 01/24/25 04:00 Chloride 98 mmol/L (98-107) 01/24/25 04:00 Carbon Dioxide 27.1 mmol/L (21-32) 01/24/25 04:00 BUN 14 mg/dL (7-18) 01/24/25 04:00 Creatinine 0.62 mg/dL (0.70-1.30) L 01/24/25 04:00 Est GFR (MDRD) Af Amer > 60 (>60) 01/24/25 04:00 Est GFR (MDRD) Non-Af > 60 (>60) 01/24/25 04:00 Glucose 100 mg/dL (65-99) H 01/24/25 04:00 POC Glucose (mg/dL) 98 mg/dL (65-99) 01/24/25 04:32 Calcium 7.6 mg/dL (8.5-10.1) L 01/24/25 04:00 Corrected Calcium 10.0 mg/dL (8.5-10.1) 01/24/25 04:00 Iron 10 ug/dL (50-175) L 01/23/25 10:00 TIBC 100 ug/dL (250-450) L 01/23/25 10:00 Transferrin 101 mg/dL (202-364) L 01/23/25 10:00 Ferritin 534 ng/mL (26-388) H 01/23/25 10:00 Total Bilirubin 1.10 mg/dL (0.2-1.0) H 01/24/25 04:00 AST 34 Units/L (15-37) 01/24/25 04:00 ALT 28 Units/L (12-78) 01/24/25 04:00 Alkaline Phosphatase 302 Units/L (46-116) H 01/24/25 04:00 Total Protein 5.7 g/dL (6.4-8.2) L 01/24/25 04:00 Albumin 1.0 g/dL (3.4-5.0) L 01/24/25 04:00 Globulin 4.7 g/dL (2.5-4.5) H 01/24/25 04:00 Albumin/Globulin Ratio 0.2 Ratio (1.1-2.1) L 01/24/25 04:00 Amylase 51 Units/L (25-115) 01/23/25 10:00 Lipase 50 Units/L (16-77) 01/23/25 10:00 Vitamin B12 867 pg/mL (193-986) 01/23/25 10:00 Folate 4.8 ng/mL (>8.6) L 01/23/25 10:00 Specimen Type Clean catch urine 01/23/25 12:15 Urine Color [place] (YELLOW) 01/23/25 12:15 Urine Appearance Slightly hazy (CLEAR) 01/23/25 12:15 Urine pH 6.0 (5.0 - 8.0) 01/23/25 12:15 Ur Specific [place] 1.015 (1.000-1.030) 01/23/25 12:15 Urine Protein 2+ (NEGATIVE) 01/23/25 12:15 Urine Glucose (UA) Negative (NEGATIVE) 01/23/25 12:15 Urine Ketones Negative (NEGATIVE) 01/23/25 12:15 Urine Blood Negative (NEGATIVE) 01/23/25 12:15 Urine Nitrite Negative (NEGATIVE) 01/23/25 12:15 Urine Bilirubin Negative (NEGATIVE) 01/23/25 12:15 Urine Urobilinogen 3+ (NORMAL) 01/23/25 12:15 Ur Leukocyte Esterase 1+ (NEGATIVE) 01/23/25 12:15 Urine RBC 0-2 /HPF (0-3) 01/23/25 12:15 Urine WBC 0-2 /HPF (0-5) 01/23/25 12:15 Ur Squamous Epith Cells Rare /HPF (NEGATIVE) 01/23/25 12:15 Urine Bacteria Trace /HPF (NEGATIVE) 01/23/25 12:15 Hyaline Casts Few /LPF (NEGATIVE) 01/23/25 12:15 Urine Mucus Few /HPF (NEGATIVE) 01/23/25 12:15 Ur Culture Indicated? No/not indicated 01/23/25 12:15 Stool Occult Blood Positive (NEGATIVE) A 01/23/25 12:35 Stl Occult Blood (IFOB) Cancelled 01/23/25 12:15 Blood Type A NEGATIVE 01/23/25 12:36 Antibody Screen Negative 01/23/25 12:36 Crossmatch See Detail 01/23/25 12:36 Review of Systems Constitutional: Weakness and Malaise Eyes: No Symptoms Reported ENT: No Symptoms Reported Respiratory: No Symptoms Reported Cardiovascular: No Symptoms Reported Gastrointestinal: Abdominal Pain Genitourinary: No Symptoms Reported Musculoskeletal: No Symptoms Reported Skin: No Symptoms Reported Neurological: Confusion Physical Exam Vital Signs: Vital Signs Temperature 98.6 F Temperature 97.9 F Pulse Rate [Bilateral Radial] 84 Pulse Rate [Bilateral Radial] 82 Respiratory Rate 18 Respiratory Rate 18 Blood Pressure [Right Arm] 91/55 Blood Pressure [Right Arm] 94/61 O2 Sat by Pulse Oximetry 94 O2 Sat by Pulse Oximetry 100 Oriented: Unable to test Throat: Dry Respiratory: Rhonchi Throughout Cardiovascular: Normal and Edema Auscultation: Bowel Sounds: Normal Palpation: Normal Tenderness: Normal Skin: Normal Musculoskeletal: Normal Psychiatric: Normal Mood Description: Calm Affect: Normal Assessment/Plan (1) Symptomatic anemia: Status: Acute (2) Acute dehydration: Status: Acute (3) Weakness generalized: Status: Acute (4) GI bleeding: Qualifiers: GI bleed type/associated pathology: melena Qualified Code(s): K92.1 - Melena Status: Acute (5) Hypertension: Qualifiers: Hypertension type: primary hypertension Qualified Code(s): I10 - Essential (primary) hypertension Status: Chronic (6) Hodgkin's lymphoma: Qualifiers: Hodgkin lymphoma type: unspecified type Lymphoma site: unspecified region Qualified Code(s): C81.90 - Hodgkin lymphoma, unspecified, unspecified site Status: Chronic (7) CAD (coronary artery disease): Qualifiers: Associated angina: without angina Coronary Disease-Associated Artery/Lesion type: unspecified vessel or lesion type [place] vs. transplanted heart: [place] heart Qualified Code(s): I25.10 - Atherosclerotic heart disease of [place] coronary artery without angina pectoris Status: Chronic (8) History of CVA (cerebrovascular accident): Status: Chronic Review H&P Reviewed: Yes Patient was examined?: Yes
--- NOTE | 2025-01-24 12:02 | DR.CONSULT ---
CONSULT Consultation for Day of: Date: 01/23/25 Chief Complaint Chief Complaint: Dizziness and anemia Allergies Allergies Allergy/AdvReac Type Severity Reaction Status Date / Time No Known Drug Allergies Allergy Unknown Verified 01/02/23 12:13 History of Present Illness History of Present Illness: This is a 64-year-old male with significant history of coronary artery disease status post multiple coronary stents, hyperlipidemia, hypertension and has had recent falls within the last year with injuries to both legs does not walk. He has had significant peripheral vascular disease with stenting of arteries both legs in the past. Presented with the above complaints of dizziness and hemoglobin of 7.6. He says he has had this in the past. His last endoscopies were greater than 1 year ago. He gives a history of colon cancer status post resection in the past. He is unsure about additional adjuvant treatment. He remains a heavy smoker. Past Medical History Past Medical History: Anemia, Anxiety, Arthritis, COPD, Coronary Artery Disease, Dyslipidemia and Hypertension Additional Medical History: HX COLON CANCER Past Surgical History Surgical History: Cholecystectomy Family History Family Medical History: Cancer, [place] and Hypertension Social History Does patient currently use any type of tobacco product: Yes Have you used tobacco products in the last 12 months: Yes Type of Tobacco Use: Cigarettes Does any household member use tobacco: Yes Alcohol Use: None Medications Home Medications: No Known Drug Allergies Allergy (Unknown, Verified 01/02/23 12:13) CONTINUE taking the following medications aspirin 81 mg tablet 81 mg PO DAILY 01/23/25 [History] atorvastatin 80 mg tablet 80 mg PO QDAY 01/23/25 [History] Review of Systems Constitutional: See HPI Eyes: No Symptoms Reported ENT: No Symptoms Reported Respiratory: No Symptoms Reported Cardiovascular: Light Headedness and Other (Complains of rest pain of both legs. Heavy smoker. Past history of arterial intervention both legs); denies Chest Pain or Paroxysmal Noc. Dyspnea Physical Exam Vital Signs: Vital Signs Temperature 98.6 F Temperature 97.9 F Pulse Rate [Bilateral Radial] 84 Pulse Rate [Bilateral Radial] 82 Respiratory Rate 18 Respiratory Rate 18 Blood Pressure [Right Arm] 91/55 Blood Pressure [Right Arm] 94/61 O2 Sat by Pulse Oximetry 94 O2 Sat by Pulse Oximetry 100 Oriented: Normal, Time, Person and Place Eyes: Normal Ear: Normal Nose: Normal Throat: Normal Respiratory: Clear Throughout Cardiovascular: Normal : Normal Auscultation: Bowel Sounds: Normal Palpation: Normal Tenderness: Normal Skin: Normal Musculoskeletal: Left Psychiatric: Anxiety and Depression Mood Description: Anxious Plan (1) Symptomatic anemia: Status: Acute Narrative Support Text: Patient to receive blood and monitor hemoglobin. Will undergo bowel prep and plan upper and lower endoscopy. He has not had one in several years. He has complained that he may not agree to proceed. However we will continue with a clear liquid diet and bowel prep (2) Acute dehydration: Status: Acute Narrative Support Text: IV hydration (3) Weakness generalized: Status: Acute Plan: Administer administer blood (4) GI bleeding: Status: Acute Qualifiers: GI bleed type/associated pathology: melena Qualified Code(s): K92.1 - Melena Plan: As above (5) Hypertension: Status: Chronic Qualifiers: Hypertension type: primary hypertension Qualified Code(s): I10 - Essential (primary) hypertension Plan: Treat as per internal medicine service (6) Hodgkin's lymphoma: Status: Chronic Qualifiers: Hodgkin lymphoma type: unspecified type Lymphoma site: unspecified region Qualified Code(s): C81.90 - Hodgkin lymphoma, unspecified, unspecified site Plan: Apparently stable from this point and is followed by oncologist (7) CAD (coronary artery disease): Status: Chronic Qualifiers: Coronary Disease-Associated Artery/Lesion type: unspecified vessel or lesion type [place] vs. transplanted heart: [place] heart Associated angina: without angina Qualified Code(s): I25.10 - Atherosclerotic heart disease of [place] coronary artery without angina pectoris Plan: Stable but have recommended that he stop smoking (8) History of CVA (cerebrovascular accident): Status: Chronic Plan: No residual (9) Atherosclerosis of [place] arteries of extremities with rest pain, right leg: Status: Acute Plan: Will obtain lower extremity arterial Dopplers (10) Atherosclerosis of [place] arteries of extremities with rest pain, left leg: Status: Acute Plan: Will obtain lower extremity Dopplers to further assess
--- NOTE | 2025-01-24 13:28 | RAD ---
EXAM: CHEST, 1 VIEW HISTORY: BILATERAL LUNG COARSE, SOB ; COMPARISON: No relevant prior studies were available for comparison at the time of interpretation. TECHNIQUE: CHEST, 1 VIEW FINDINGS: Chest: Lines and tubes: None Mediastinum: Median sternotomy wires are present. The cardiac shadow is enlarged. Pulmonary vessels: Pulmonary vasculature is prominent. Lung hu: Patchy opacities are seen Pleura: No effusion. No pneumothorax. Bones and soft tissues: No acute osseous or soft tissue abnormality. IMPRESSION: 1. Bilateral pneumonia THIS IS AN ELECTRONICALLY VERIFIED FINAL REPORT 01/24/2025 1:24 PM - Electronically signed by Louis Lozoya MD
--- NOTE | 2025-01-24 15:21 | VAS ---
EXAM: LOWER EXT ARTERIAL HISTORY: BLE REST PAIN; . COMPARISON: None available. TECHNIQUE: Ultrasound of bilateral lower extremity arteries was performed, including the common femoral, superficial femoral and popliteal arteries. When clinically applicable, the deep femoral, posterior tibial and/or anterior tibial artery were also evaluated. Color flow and spectral doppler imaging was utilized. Subjective analysis from sales-scale, waveform analysis and color flow imaging was used to estimate degree of stenosis. FINDINGS: RIGHT LOWER EXTREMITY: Proximal common femoral artery has a peak systolic velocity 162 cm/sec with a monophasic wave form. Proximal superficial femoral artery peak systolic velocity 117 cm/sec with a monophasic wave form. Mid and distal superficial femoral artery stent is occluded. Proximal popliteal artery stent is occluded in the proximal portion. Distal popliteal artery peak systolic velocity 16 cm/sec with a monophasic wave form. No flow seen in the posterior tibial artery. DPA peak systolic velocity 14 cm/sec with monophasic wave form. LEFT LOWER EXTREMITY: Proximal common femoral artery has a peak systolic velocity 70 cm/sec with a monophasic wave form. Proximal superficial femoral artery peak systolic velocity 60 cm/sec with a monophasic wave form. Mid superficial femoral artery with stent in place and peak systolic velocity 39 cm/sec with a monophasic wave form. Distal superficial femoral artery peak systolic velocity 46 cm/sec with a monophasic wave form. Proximal popliteal artery peak systolic velocity 95 cm/sec with a monophasic wave form. Distal popliteal artery peak systolic velocity 46 cm/sec with a monophasic wave form. Proximal posterior tibial artery peak systolic velocity 24 cm/sec with a monophasic wave form. Mid posterior tibial artery peak systolic velocity 24 cm/sec with a monophasic wave form. Distal posterior tibial artery peak systolic velocity 19 cm/sec with a monophasic wave form. DPA peak systolic velocity 66 cm/sec with monophasic wave form. IMPRESSION: 1. Occluded right superficial femoral artery and popliteal artery stent. Absent flow in the right posterior tibial artery. Single-vessel runoff in the right ankle via the posterior tibial artery. 2. Diffuse left lower extremity monophasic waveforms, suggestive of inflow/iliac artery stenosis. No high-grade left lower extremity arterial stenosis seen. THIS IS AN ELECTRONICALLY VERIFIED FINAL REPORT 01/24/2025 3:17 PM - Electronically signed by Servando Borden MD
[2025-01-24] MEDS: SUPREP BOWEL PREP KIT PO SCH (16:24)
[2025-01-24] MEDS: PULMICORT NEB TX 0.5 MG NEB SCH (20:08)
[2025-01-24] MEDS: DUONEB 0.5 MG/3 MG (3 mL) NEB SCH (20:08)
[2025-01-25] MEDS: HIBICLENS WASH EXT ONE (04:37)
[2025-01-25] MEDS: NOZIN NASAL SANITIZER TP SCH (04:38)
[2025-01-25] MEDS ORDERED: DIPRIVAN VIAL ONE (04:54)
[2025-01-25] MEDS ORDERED: LR IV ONE (04:54)
[2025-01-25 05:11] LABS: BASOPHILS % (AUTO) 0.5 % (0.2-1.0); EOSINOPHILS # (AUTO) 0.1 x10^3/uL (0.0-0.2); EOSINOPHILS % (AUTO) 1.8 % (0.9-2.9); HEMATOCRIT 27.3 % (42.0-54.0); HEMOGLOBIN 9.1 g/dL (13.5-18.0); LYMPHOCYTES # (AUTO) 0.4 X10^3/uL (1.3-2.9); LYMPHOCYTES % (AUTO) 4.3 % (21.0-51.0); MEAN CORPUSCULAR HEMOGLOBIN 25.9 pg (27.0-34.0); MEAN CORPUSCULAR HGB CONC 33.5 g/dL (33.0-35.0); MEAN CORPUSCULAR VOLUME 77.4 fL (80.0-100.0); MEAN PLATELET VOLUME 7.8 fL (7.4-11.0); MONOCYTES # (AUTO) 1.8 x10^3/uL (0.3-0.8); MONOCYTES % (AUTO) 21.2 % (0.0-13.0); NEUTROPHILS % (AUTO) 72.2 % (42.0-75.0); PLATELET COUNT 393 X10^3/uL (150.0-450.0); RED BLOOD COUNT 3.52 X10^6/uL (4.7-6.0); RED CELL DISTRIBUTION WIDTH 24.1 % (11.6-16.5); WHITE BLOOD COUNT 8.3 X10^3/uL (3.6-10.0)
[2025-01-25 05:15] LABS: ALANINE AMINOTRANSFERASE 24 Units/L (12-78); ALKALINE PHOSPHATASE 316 Units/L (46-116); ASPARTATE AMINO TRANSFERASE 44 Units/L (15-37); BLOOD UREA NITROGEN 11 mg/dL (7-18); CALCIUM 7.7 mg/dL (8.5-10.1); CARBON DIOXIDE 30.4 mmol/L (21-32); CHLORIDE 104 mmol/L (98-107); COR CA(FOR HYPOALB) 10.1 mg/dL (8.5-10.1); CREATININE 0.54 mg/dL (0.70-1.30); GLUCOSE 89 mg/dL (65-99); SODIUM 137 mmol/L (136-145); TOTAL PROTEIN 5.7 g/dL (6.4-8.2); eGFR NON BLACK RACES > 60 (>60)
[2025-01-25 05:26] LABS: ANISOCYTOSIS 3+; HYPOCHROMASIA SLIGHT; PLATELET MORPHOLOGY COMMENT NORMAL (NORMAL)
[2025-01-25 05:27] LABS: MICROCYTOSIS SLIGHT; TARGET CELLS SLIGHT
[2025-01-25] MEDS ORDERED: DIPRIVAN VIAL 20 ML ONE (07:32)
[2025-01-25] MEDS ORDERED: LR 1,000 ML IV 1,000 ML IV ONE (07:38)
--- NOTE | 2025-01-25 08:01 | NOTE.SOAP ---
Soap Note Note for Day of Date of Exam: 01/24/25 Subjective Data Subjective Data: patietn stable since admission, received 2 units of blood , U/S shows completely occluded right SFA stents. Objective Data Temperature: 97.9 F Pulse Rate: 91 Respiratory Rate: 17 Blood Pressure: 100/51 O2 Sat by Pulse Oximetry: 100 Objective Data: benign abdomen , cool feet b/l Assessment Assessment: 1) probable GI bleed 2) ischemic right leg, recent stent placed right SFA Plan Plan: For EGD and colonoscopy , obtain CTA of aorto with runoff
--- NOTE | 2025-01-25 08:04 | OR.IMMED ---
IMMEDIATE POST-OP NOTE Immediate Post-Op Note Date of surgery/procedure: 01/25/25 Pre-Op Diagnosis: anemia , probable GI blood loss Post-Op Diagnosis: same , Procedure: EGD could not do colonoscopy due to poor bowel prep. Description of Procedure: dictated Surgeon/Wireless Architect: Kei Findings: Normal EGD , will need to repeat colonoscopy Estimated Blood Loss: none Complications: none Progress Notes: return to CCU , continue clear liquid diet, obtain CTA of aorta with runoff, repeat bowel prep.
[2025-01-25] MEDS: SUPREP BOWEL PREP KIT PO NR (09:38)
[2025-01-25 10:06] VITALS: O2SAT 95
--- NOTE | 2025-01-25 10:10 | PCM.PROG ---
Progress Note Progress Note for Day of Date of Exam: 01/25/25 Subjective Subjective: Patient seen at bedside, no acute events overnight he is currently admitted for anemia and GI bleed. He did start some of the colon prep yesterday. He underwent EGD today but was not able to have colonoscopy due to poor prep. His EGD was normal. He also had arterial study done yesterday which did show right SFA and popliteal artery occlusion. Patient does have a history of stenting in both legs. He is scheduled to have CTA runoff today to evaluate further. He is feeling well. His hemoglobin is stable. Denies any active bleeding. Labs/imaging reviewed: - WBC 8.3 hemoglobin 9.1 potassium 4 creatinine 0.54 alk phos 316 - Arterial extremity study reviewed Plan: Continue to monitor in ICU, monitor H&H. Follow surgery recommendations. Continue home medications. Replace electrolytes as per protocol. Monitor blood pressure, continue hydration. Plan for possible vascular intervention tomorrow. Monitor a.m. labs and imaging. Time spent for clinical assessment, reviewing labs/imaging, physical exam, decision making and documentation greater than 45 mins. Past Medical Family Social History Allergies: Allergies No Known Drug Allergies Allergy (Unknown, Verified 01/02/23 12:13) Onset Date: 12/15/2016 Vital Signs and I&O's Vital Signs: Vital Signs Temperature 97.9 F Temperature 98.7 F Temperature 97.9 F Pulse Rate [Bilateral Radial] 71 Pulse Rate [Bilateral Radial] 77 Pulse Rate 91 Respiratory Rate 20 Respiratory Rate 17 Respiratory Rate 18 Respiratory Rate 20 Blood Pressure [Right Arm] 104/59 Blood Pressure [Right Arm] 98/52 Blood Pressure 100/51 O2 Sat by Pulse Oximetry 100 O2 Sat by Pulse Oximetry 99 O2 Sat by Pulse Oximetry 99 Intake and Output: Intake & Output 01/22/25 01/23/25 01/24/25 01/25/25 23:59 23:59 23:59 23:59 Intake Total 1177 / 1177 2592 / 2592 137 / 137 Output Total Balance 1177 / 1177 2592 / 2592 136 / 136 Physical Exam Oriented: Normal, Time, Person and Place Eyes: Normal Ear: Normal Nose: Normal Throat: Normal Respiratory: Generalized and Diminished Cardiovascular: Normal and Edema (L>R) Auscultation: Bowel Sounds: Normal Palpation: Normal Tenderness: Normal Skin: Normal Musculoskeletal: Left Psychiatric: Normal Mood Description: Calm Affect: Normal Speech Pattern: Clear and Appropriate Laboratory and Diagnostics 01/25/25 04:18 01/25/25 04:18 Labs: Laboratory WBC 8.3 X10^3/uL (3.6-10.0) 01/25/25 04:18 RBC 3.52 X10^6/uL (4.7-6.0) L 01/25/25 04:18 Hgb 9.1 g/dL (13.5-18.0) L 01/25/25 04:18 Hct 27.3 % (42.0-54.0) L 01/25/25 04:18 MCV 77.4 fL (80.0-100.0) L 01/25/25 04:18 MCH 25.9 pg (27.0-34.0) L 01/25/25 04:18 MCHC 33.5 g/dL (33.0-35.0) 01/25/25 04:18 RDW 24.1 % (11.6-16.5) H 01/25/25 04:18 Plt Count 393 X10^3/uL (150.0-450.0) 01/25/25 04:18 Plt Count Comment Adequate (ADEQUATE) 01/25/25 04:18 MPV 7.8 fL (7.4-11.0) 01/25/25 04:18 Neut % (Auto) 72.2 % (42.0-75.0) 01/25/25 04:18 Lymph % (Auto) 4.3 % (21.0-51.0) L 01/25/25 04:18 [place] % (Auto) 21.2 % (0.0-13.0) H 01/25/25 04:18 Eos % (Auto) 1.8 % (0.9-2.9) 01/25/25 04:18 Baso % (Auto) 0.5 % (0.2-1.0) 01/25/25 04:18 Neut # (Auto) 6.0 x10^3/uL (2.2-4.8) H 01/25/25 04:18 Lymph # (Auto) 0.4 X10^3/uL (1.3-2.9) L 01/25/25 04:18 [place] # (Auto) 1.8 x10^3/uL (0.3-0.8) H 01/25/25 04:18 Eos # (Auto) 0.1 x10^3/uL (0.0-0.2) 01/25/25 04:18 Baso # (Auto) 0.0 X10^3/uL (0.0-0.1) 01/25/25 04:18 Absolute Nucleated RBC 0.0 /100WBC 01/25/25 04:18 Total Counted 100 01/25/25 04:18 Neutrophils % (Manual) 80 % (39-76) H 01/25/25 04:18 Lymphocytes % (Manual) 3 % (13-43) L 01/25/25 04:18 Monocytes % (Manual) 17 % (4-9) H 01/25/25 04:18 Eosinophils % (Manual) 1 % (0-6) 01/24/25 04:00 Plt Morphology Comment Normal (NORMAL) 01/25/25 04:18 RBC Morphology Abnormal (NORMAL) 01/25/25 04:18 Dimorphic RBCs Slight 01/24/25 04:00 Hypochromasia Slight A 01/25/25 04:18 Poikilocytosis Slight A 01/24/25 04:00 Anisocytosis 3+ A 01/25/25 04:18 Microcytosis Slight A 01/25/25 04:18 Target Cells Slight A 01/25/25 04:18 Cj Cells Slight A 01/24/25 04:00 Absolute Retic 0.0717 10^6/uL 01/23/25 10:00 Percent Retic 2.31 % (0.8-2.2) H 01/23/25 10:00 Sodium 137 mmol/L (136-145) 01/25/25 04:18 Corrected Sodium TNP 01/25/25 04:18 Potassium 4.0 mmol/L (3.5-5.1) 01/25/25 04:18 Chloride 104 mmol/L (98-107) 01/25/25 04:18 Carbon Dioxide 30.4 mmol/L (21-32) 01/25/25 04:18 BUN 11 mg/dL (7-18) 01/25/25 04:18 Creatinine 0.54 mg/dL (0.70-1.30) L 01/25/25 04:18 Est GFR (MDRD) Af Amer > 60 (>60) 01/25/25 04:18 Est GFR (MDRD) Non-Af > 60 (>60) 01/25/25 04:18 Glucose 89 mg/dL (65-99) 01/25/25 04:18 POC Glucose (mg/dL) 98 mg/dL (65-99) 01/24/25 04:32 Calcium 7.7 mg/dL (8.5-10.1) L 01/25/25 04:18 Corrected Calcium 10.1 mg/dL (8.5-10.1) 01/25/25 04:18 Iron 10 ug/dL (50-175) L 01/23/25 10:00 TIBC 100 ug/dL (250-450) L 01/23/25 10:00 Transferrin 101 mg/dL (202-364) L 01/23/25 10:00 Ferritin 534 ng/mL (26-388) H 01/23/25 10:00 Total Bilirubin 0.80 mg/dL (0.2-1.0) 01/25/25 04:18 AST 44 Units/L (15-37) H 01/25/25 04:18 ALT 24 Units/L (12-78) 01/25/25 04:18 Alkaline Phosphatase 316 Units/L (46-116) H 01/25/25 04:18 Total Protein 5.7 g/dL (6.4-8.2) L 01/25/25 04:18 Albumin 1.0 g/dL (3.4-5.0) L 01/25/25 04:18 Globulin 4.7 g/dL (2.5-4.5) H 01/25/25 04:18 Albumin/Globulin Ratio 0.2 Ratio (1.1-2.1) L 01/25/25 04:18 Amylase 51 Units/L (25-115) 01/23/25 10:00 Lipase 50 Units/L (16-77) 01/23/25 10:00 Vitamin B12 867 pg/mL (193-986) 01/23/25 10:00 Folate 4.8 ng/mL (>8.6) L 01/23/25 10:00 Specimen Type Clean catch urine 01/23/25 12:15 Urine Color [place] (YELLOW) 01/23/25 12:15 Urine Appearance Slightly hazy (CLEAR) 01/23/25 12:15 Urine pH 6.0 (5.0 - 8.0) 01/23/25 12:15 Ur Specific [place] 1.015 (1.000-1.030) 01/23/25 12:15 Urine Protein 2+ (NEGATIVE) 01/23/25 12:15 Urine Glucose (UA) Negative (NEGATIVE) 01/23/25 12:15 Urine Ketones Negative (NEGATIVE) 01/23/25 12:15 Urine Blood Negative (NEGATIVE) 01/23/25 12:15 Urine Nitrite Negative (NEGATIVE) 01/23/25 12:15 Urine Bilirubin Negative (NEGATIVE) 01/23/25 12:15 Urine Urobilinogen 3+ (NORMAL) 01/23/25 12:15 Ur Leukocyte Esterase 1+ (NEGATIVE) 01/23/25 12:15 Urine RBC 0-2 /HPF (0-3) 01/23/25 12:15 Urine WBC 0-2 /HPF (0-5) 01/23/25 12:15 Ur Squamous Epith Cells Rare /HPF (NEGATIVE) 01/23/25 12:15 Urine Bacteria Trace /HPF (NEGATIVE) 01/23/25 12:15 Hyaline Casts Few /LPF (NEGATIVE) 01/23/25 12:15 Urine Mucus Few /HPF (NEGATIVE) 01/23/25 12:15 Ur Culture Indicated? No/not indicated 01/23/25 12:15 Stool Occult Blood Positive (NEGATIVE) A 01/23/25 12:35 Stl Occult Blood (IFOB) Cancelled 01/23/25 12:15 Blood Type A NEGATIVE 01/23/25 12:36 Antibody Screen Negative 01/23/25 12:36 Crossmatch See Detail 01/23/25 12:36 Plan (1) Symptomatic anemia: Status: Acute (2) Acute dehydration: Status: Acute (3) Atherosclerosis of [place] arteries of extremities with rest pain, right leg: Status: Acute (4) Atherosclerosis of [place] arteries of extremities with rest pain, left leg: Status: Acute (5) Weakness generalized: Status: Acute (6) GI bleeding: Status: Acute Qualifiers: GI bleed type/associated pathology: melena Qualified Code(s): K92.1 - Melena (7) Hypertension: Status: Chronic Qualifiers: Hypertension type: primary hypertension Qualified Code(s): I10 - Essential (primary) hypertension (8) Hodgkin's lymphoma: Status: Chronic Qualifiers: Hodgkin lymphoma type: unspecified type Lymphoma site: unspecified region Qualified Code(s): C81.90 - Hodgkin lymphoma, unspecified, unspecified site (9) CAD (coronary artery disease): Status: Chronic Qualifiers: Associated angina: without angina Coronary Disease-Associated Artery/Lesion type: unspecified vessel or lesion type [place] vs. transplanted heart: [place] heart Qualified Code(s): I25.10 - Atherosclerotic heart disease of [place] coronary artery without angina pectoris (10) History of CVA (cerebrovascular accident): Status: Chronic
[2025-01-25] MEDS ORDERED: OMNIPAQUE 350 mg/mL 50 mL BTL 50 ML ONE (10:34)
[2025-01-25] MEDS ORDERED: OMNIPAQUE 350 mg/mL 100 mL BTL 100 ML ONE (10:34)
--- NOTE | 2025-01-25 12:07 | DR.OPNOTE ---
OP NOTE Pre-Op Diagnosis: Anemia, possible GI loss Post-Op Diagnosis: Same, normal EGD, could not complete colonoscopy due to poor bowel prep Procedure Date Date Of Procedure: 01/25/25 Procedure: Indications: Patient admitted with anemia and possible GI blood loss, Procedure : esophago- gastro duodenoscopy, planned colonoscopy PROCEDURE: 1) esophagogastroduodenoscopy 2) aborted colonoscopy due to poor prep NARRATIVE: Patient taken to the operative suite placed in the supine position, given IV sedation and then placed in the left lateral position. Bite-block was placed. Timeout for the procedure obtained. Endoscope introduced into the mouth and into the esophagus. Esophacus was normal. There is no hiatal hernia. Stomach was normal as was the duodenum with no bleeding source and no active irritation or ulceration. Scope withdrawn. Patient then turned around we planned colonoscopy but there was still significant stool in the rectum ,therefore we aborted this and will plan to perform another day after adequate bowel prep. Type of Anesthesia: General Anesthetic w/mask (MAC) Findings: Normal esophagus stomach and duodenum, no bleeding source Type of Fluids Used:: Lactated Ringers EBL: none Complications:: none Needle/Sponge Count:: correct Disposition/Condition: Pt. tolerated procedure without difficulty. Taken to the condition.
--- NOTE | 2025-01-25 12:26 | CT ---
EXAM: CTA AORTA WITH RUNOFF HISTORY: ischemic right leg; ; pt unable to straighten legs out COMPARISON: CT abdomen and pelvis 01/23/2025 TECHNIQUE: Multiple CT axial images of the abdomen pelvis and lower extremity runoff were obtained before and after using IV contrast. 3D reconstructions utilizing axial MIPS imaging was performed and reviewed. Dose reduction techniques including Automated Exposure Control (AEC) and adjustment of mA and kV were utilized. Stenoses are measured using NASCET criteria. Normal is no stenosis. Mild is less than 50% stenosis. Moderate is 50-69% stenosis. Severe is 70% to 99% stenosis. Total occlusion is no detectable patent lumen. FINDINGS: Without contrast: Atherosclerotic calcification is present in the coronary arteries, aorta, and major arterial branches. Surgical clips are present in the gallbladder fossa from a cholecystectomy. With contrast: The aorta has a normal caliber with no aneurysm, dissection, or stenosis. All 3 mesenteric vessels are patent. There is a single patent artery to each kidney. There is complete occlusion of the left common iliac and left external iliac arteries. Right common iliac and external iliac arteries are patent. In addition, there is a patent femoral/femoral bypass graft. Left lower extremity: A patent jump graft is present from the left side of the femoral/femoral bypass graft extending down the left leg to anastomose with the popliteal artery above the knee joint surface. The [place] superficial femoral artery is occluded. The [place] popliteal artery is patent with diffuse disease. There are extensive calcifications in the trifurcation vessels but I believe all 3 branches are patent to the distal calf. Posterior tibial artery becomes either very tiny or occluded in the distal calf. Peroneal artery is tiny at the ankle but probably extends into the foot. The dominant vessel is anterior tibial extending into the foot. Right lower extremity: There is a long occlusion of the femoropopliteal artery. Collaterals reconstitute the popliteal artery above the knee joint surface. Anterior tibial artery extends into the foot. Peroneal artery is also patent extending into the posterior foot. But the posterior tibial artery is occluded in the proximal calf. Nonvascular: The patient has anasarca with generalized edema. This is manifested as increased density in the subcutaneous fat and the intra-abdominal fat. This is associated with pleural effusions and moderate volume ascites. Airspace opacity in the lung bases is mostly associated with the effusions in a dependent location so is probably atelectasis. Liver and adrenal glands are unremarkable. Mass in the anterior spleen is new since 10/18/2023. It measures 3.4 cm. Numerous calcifications throughout the pancreas are consistent with chronic calcific pancreatitis. There is no hydronephrosis or renal mass. The bladder has normal distention. It has no wall thickening or perivesical edema. The bowel is not dilated. There is no wall thickening in the bowel or edema around the bowel. IMPRESSION: 1. 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 Long occlusion from the left common iliac artery to the popliteal artery but with patent bypass grafts to the popliteal artery and with two-vessel runoff to the left foot 3. Anasarca with larger pleural effusions 4. New 3.4 cm splenic mass 5. Chronic calcific pancreatitis THIS IS AN ELECTRONICALLY VERIFIED FINAL REPORT 01/25/2025 12:23 PM - Electronically signed by Grupo Mejia MD
[2025-01-25] MEDS ORDERED: NICOTINE PATCH TD SCH (13:00)
[2025-01-25 15:39] VITALS: BP 104/60; PULSE 79; RESP 16; TEMP 98.3
--- NOTE | 2025-01-25 23:01 | NOTE.SOAP ---
Soap Note Note for Day of Date of Exam: 01/25/25 Subjective Data Subjective Data: see previous notes Objective Data Temperature: 98.3 F Pulse Rate: 79 Respiratory Rate: 16 Blood Pressure: 104/60 O2 Sat by Pulse Oximetry: 95 Objective Data: Hgb=9.1 CTA shows that he has a femoral-femoral graft that is patent. The right superficial femoral artery is occluded despite intervention within the last few months consistent with severe ischemia. Assessment Assessment: 1) patient with severe ischemia of the right lower extremity with occluded right superficial artery and GI bleed presumably with normal EGD .C olonoscopy not carried out due to poor bowel prep. Patient has signed out AGAINST MEDICAL ADVICE. I discussed this with he and his by phone and recommended this is a bad idea and that his leg is in jeopardy. Plan Plan: Patient signed out AGAINST MEDICAL ADVICE
--- NOTE | 2025-01-31 10:54 | W.DIS.FURT ---
Summary of Discharge Discharge Summary of Date Date of Exam: 01/25/25 Admission Date Date of Admission: 01/23/25 Admission Diagnosis Patient Problems (Updated 01/25/25 @ 02:36 by PAULO BARBER) Pressure ulcer (Acute) L89.90 Abdominal pain (Acute) R10.9 Chronic pancreatitis (Acute) K86.1 Chronic back pain (Acute) M54.9, G89.29 Acute dehydration (Acute) E86.0 Weakness generalized (Acute) R53.1 Dizziness (Acute) R42 GI bleeding (Acute) K92.2 Symptomatic anemia (Acute) D64.9 Hospital Course: Mr. Ahumada is a 64-year-old male with a past medical history of anemia, thrombocytopenia, NHL, COPD, CAD, PAD, hypertension and hyperlipidemia presented with generalized weakness and AMS. ER workup showed hemoglobin 7.6, normal renal function. CT brain was negative for acute changes. CTAP showed moderate ascites and small effusions. FOBT was positive. He was admitted for further evaluation for anemia and blood transfusion. Dr. Choudhury was also consulted. Patient does see hematology for anemia and thrombocytopenia. He has had EGD and colonoscopies in the past. He was told to stop aspirin about 6 weeks ago and continue Plavix. He was transfused 3 units of PRBCs. He denied having any active bleeding. EGD was performed which was normal. Unable to do colonoscopy due to poor prep. He was tolerating diet and doing well. His labs are monitored daily and electrolytes replace as needed. He was having some leg pain and swelling. He does have a history of PAD with previous intervention. Arterial study showed occluded right superficial femoral artery and popliteal artery stent. Absent flow in the right posterior tibial artery. CTA was also done, see report. Patient was scheduled to have intervention the following day but he refused. He stated he would f/u with vascular outpatient. He was stable for discharge. His hemoglobin was 9.1. He will follow-up with PCP, GI and vascular outpatient. Vital Signs: Vital Signs (72 hours) 01/23/25 09:59 01/23/25 10:00 01/23/25 10:06 Temperature Pulse Rate 88 Pulse Rate [Bilateral Radial] Respiratory Rate Blood Pressure 120/70 123/68 Blood Pressure [Left Arm] Blood Pressure [Right Arm] O2 Sat by Pulse Oximetry 97 Oxygen Delivery Method Oxygen Flow Rate FIO2% 01/23/25 10:12 01/23/25 10:15 01/23/25 10:30 Temperature 98.2 F Pulse Rate 93 H Pulse Rate [Bilateral Radial] Respiratory Rate 18 Blood Pressure 120/70 119/68 Blood Pressure [Left Arm] Blood Pressure [Right Arm] O2 Sat by Pulse Oximetry 97 88 L Oxygen Delivery Method Room Air Oxygen Flow Rate FIO2% 01/23/25 10:30 01/23/25 10:45 01/23/25 11:09 Temperature Pulse Rate 95 H 97 H 83 Pulse Rate [Bilateral Radial] Respiratory Rate Blood Pressure Blood Pressure [Left Arm] Blood Pressure [Right Arm] O2 Sat by Pulse Oximetry 98 97 96 Oxygen Delivery Method Oxygen Flow Rate FIO2% 01/23/25 11:09 01/23/25 11:15 01/23/25 11:22 Temperature Pulse Rate 88 Pulse Rate [Bilateral Radial] Respiratory Rate 20 Blood Pressure 116/66 Blood Pressure [Left Arm] Blood Pressure [Right Arm] O2 Sat by Pulse Oximetry 99 Oxygen Delivery Method Oxygen Flow Rate FIO2% 01/23/25 11:30 01/23/25 11:30 01/23/25 11:45 Temperature Pulse Rate 92 H 91 H Pulse Rate [Bilateral Radial] Respiratory Rate Blood Pressure 122/65 Blood Pressure [Left Arm] Blood Pressure [Right Arm] O2 Sat by Pulse Oximetry 95 96 Oxygen Delivery Method Oxygen Flow Rate FIO2% 01/23/25 12:00 01/23/25 12:00 01/23/25 12:15 Temperature Pulse Rate 89 90 Pulse Rate [Bilateral Radial] Respiratory Rate Blood Pressure 111/68 Blood Pressure [Left Arm] Blood Pressure [Right Arm] O2 Sat by Pulse Oximetry 98 92 L Oxygen Delivery Method Oxygen Flow Rate FIO2% 01/23/25 12:20 01/23/25 13:30 01/23/25 13:30 Temperature 97.8 F Pulse Rate Pulse Rate [Bilateral Radial] 94 H Respiratory Rate 20 18 Blood Pressure Blood Pressure [Left Arm] 97/59 Blood Pressure [Right Arm] O2 Sat by Pulse Oximetry 93 L Oxygen Delivery Method Room Air Room Air Oxygen Flow Rate FIO2% 01/23/25 13:34 01/23/25 13:36 01/23/25 13:36 Temperature Pulse Rate 95 H Pulse Rate [Bilateral Radial] Respiratory Rate Blood Pressure 97/59 97/59 Blood Pressure [Left Arm] Blood Pressure [Right Arm] O2 Sat by Pulse Oximetry 93 L Oxygen Delivery Method Oxygen Flow Rate FIO2% 01/23/25 13:36 01/23/25 13:45 01/23/25 14:00 Temperature Pulse Rate 94 H 89 91 H Pulse Rate [Bilateral Radial] Respiratory Rate Blood Pressure Blood Pressure [Left Arm] Blood Pressure [Right Arm] O2 Sat by Pulse Oximetry 93 L 94 L 94 L Oxygen Delivery Method Oxygen Flow Rate FIO2% 01/23/25 14:15 01/23/25 14:30 01/23/25 14:45 Temperature Pulse Rate 88 91 H 91 H Pulse Rate [Bilateral Radial] Respiratory Rate Blood Pressure Blood Pressure [Left Arm] Blood Pressure [Right Arm] O2 Sat by Pulse Oximetry 94 L 93 L 94 L Oxygen Delivery Method Oxygen Flow Rate FIO2% 01/23/25 15:00 01/23/25 15:00 01/23/25 15:05 Temperature 97.6 F Pulse Rate 84 Pulse Rate [Bilateral Radial] 88 Respiratory Rate 18 Blood Pressure 96/61 Blood Pressure [Left Arm] 102/63 Blood Pressure [Right Arm] O2 Sat by Pulse Oximetry 97 92 L Oxygen Delivery Method Room Air Oxygen Flow Rate FIO2% 01/23/25 15:05 01/23/25 15:07 01/23/25 15:07 Temperature Pulse Rate 87 85 Pulse Rate [Bilateral Radial] Respiratory Rate Blood Pressure 102/60 Blood Pressure [Left Arm] Blood Pressure [Right Arm] O2 Sat by Pulse Oximetry 92 L 94 L Oxygen Delivery Method Oxygen Flow Rate FIO2% 01/23/25 15:15 01/23/25 15:19 01/23/25 15:19 Temperature Pulse Rate 89 89 Pulse Rate [Bilateral Radial] Respiratory Rate Blood Pressure 102/63 Blood Pressure [Left Arm] Blood Pressure [Right Arm] O2 Sat by Pulse Oximetry 94 L 94 L Oxygen Delivery Method Oxygen Flow Rate FIO2% 01/23/25 15:30 01/23/25 15:45 01/23/25 16:00 Temperature Pulse Rate 88 90 82 Pulse Rate [Bilateral Radial] Respiratory Rate Blood Pressure Blood Pressure [Left Arm] Blood Pressure [Right Arm] O2 Sat by Pulse Oximetry 94 L 97 92 L Oxygen Delivery Method Oxygen Flow Rate FIO2% 01/23/25 16:01 01/23/25 16:01 01/23/25 16:15 Temperature Pulse Rate 85 85 Pulse Rate [Bilateral Radial] Respiratory Rate Blood Pressure 111/63 Blood Pressure [Left Arm] Blood Pressure [Right Arm] O2 Sat by Pulse Oximetry 89 L 93 L Oxygen Delivery Method Oxygen Flow Rate FIO2% 01/23/25 16:25 01/23/25 16:30 01/23/25 19:00 Temperature 97.8 F Pulse Rate 86 Pulse Rate [Bilateral Radial] 89 Respiratory Rate 19 Blood Pressure Blood Pressure [Left Arm] 111/63 Blood Pressure [Right Arm] O2 Sat by Pulse Oximetry 97 98 Oxygen Delivery Method Room Air Room Air Oxygen Flow Rate FIO2% 01/23/25 19:19 01/23/25 20:00 01/23/25 20:00 Temperature Pulse Rate 88 Pulse Rate [Bilateral Radial] 82 82 Respiratory Rate 16 16 Blood Pressure Blood Pressure [Left Arm] 107/64 Blood Pressure [Right Arm] 107/64 O2 Sat by Pulse Oximetry 96 99 95 Oxygen Delivery Method Room Air Oxygen Flow Rate FIO2% 01/23/25 22:34 01/23/25 23:34 01/24/25 00:00 Temperature 97.8 F Pulse Rate Pulse Rate [Bilateral Radial] 88 Respiratory Rate 20 19 20 Blood Pressure Blood Pressure [Left Arm] Blood Pressure [Right Arm] 101/57 O2 Sat by Pulse Oximetry 97 Oxygen Delivery Method Oxygen Flow Rate FIO2% 01/24/25 04:00 01/24/25 05:11 01/24/25 07:00 Temperature 97.9 F Pulse Rate Pulse Rate [Bilateral Radial] 82 Respiratory Rate 18 Blood Pressure Blood Pressure [Left Arm] Blood Pressure [Right Arm] 94/61 O2 Sat by Pulse Oximetry 100 Oxygen Delivery Method Nasal Cannula Room Air Oxygen Flow Rate 2 FIO2% 28 01/24/25 08:00 01/24/25 08:19 01/24/25 12:00 Temperature 98.6 F 99.4 F Pulse Rate Pulse Rate [Bilateral Radial] 84 92 H Respiratory Rate 18 18 Blood Pressure Blood Pressure [Left Arm] Blood Pressure [Right Arm] 91/55 97/70 O2 Sat by Pulse Oximetry 94 L 97 Oxygen Delivery Method Nasal Cannula Oxygen Flow Rate 2 FIO2% 28 01/24/25 16:00 01/24/25 16:01 01/24/25 17:01 Temperature 98.8 F Pulse Rate Pulse Rate [Bilateral Radial] 87 Respiratory Rate 24 21 19 Blood Pressure Blood Pressure [Left Arm] Blood Pressure [Right Arm] 106/66 O2 Sat by Pulse Oximetry 100 Oxygen Delivery Method Oxygen Flow Rate FIO2% 01/24/25 19:00 01/24/25 20:00 01/24/25 20:09 Temperature 97.9 F Pulse Rate Pulse Rate [Bilateral Radial] 91 H Respiratory Rate 15 Blood Pressure Blood Pressure [Left Arm] Blood Pressure [Right Arm] 93/51 O2 Sat by Pulse Oximetry 100 Oxygen Delivery Method Room Air Nasal Cannula Oxygen Flow Rate 2 FIO2% 28 01/24/25 20:29 01/25/25 00:00 01/25/25 04:00 Temperature 97.9 F Pulse Rate 76 Pulse Rate [Bilateral Radial] 69 77 Respiratory Rate 15 20 Blood Pressure Blood Pressure [Left Arm] Blood Pressure [Right Arm] 100/55 98/52 O2 Sat by Pulse Oximetry 98 97 99 Oxygen Delivery Method Nasal Cannula Oxygen Flow Rate FIO2% 01/25/25 07:00 01/25/25 07:00 01/25/25 08:00 Temperature 98.7 F 98.7 F Pulse Rate Pulse Rate [Bilateral Radial] 71 70 Respiratory Rate 18 18 Blood Pressure Blood Pressure [Left Arm] Blood Pressure [Right Arm] 104/59 90/52 O2 Sat by Pulse Oximetry 99 96 Oxygen Delivery Method Room Air Nasal Cannula Nasal Cannula Oxygen Flow Rate FIO2% 01/25/25 08:01 01/25/25 08:35 01/25/25 09:00 Temperature 97.9 F 98.7 F Pulse Rate 91 H Pulse Rate [Bilateral Radial] 87 Respiratory Rate 17 24 Blood Pressure 100/51 Blood Pressure [Left Arm] Blood Pressure [Right Arm] 112/56 O2 Sat by Pulse Oximetry 100 95 Oxygen Delivery Method Nasal Cannula Room Air Oxygen Flow Rate 2 FIO2% 28 01/25/25 09:23 01/25/25 10:23 Temperature Pulse Rate Pulse Rate [Bilateral Radial] Respiratory Rate 20 20 Blood Pressure Blood Pressure [Left Arm] Blood Pressure [Right Arm] O2 Sat by Pulse Oximetry Oxygen Delivery Method Oxygen Flow Rate FIO2% Labs: Laboratory Last Values WBC 8.3 X10^3/uL (3.6-10.0) 01/25/25 04:18 RBC 3.52 X10^6/uL (4.7-6.0) L 01/25/25 04:18 Hgb 9.1 g/dL (13.5-18.0) L 01/25/25 04:18 Hct 27.3 % (42.0-54.0) L 01/25/25 04:18 MCV 77.4 fL (80.0-100.0) L 01/25/25 04:18 MCH 25.9 pg (27.0-34.0) L 01/25/25 04:18 MCHC 33.5 g/dL (33.0-35.0) 01/25/25 04:18 RDW 24.1 % (11.6-16.5) H 01/25/25 04:18 Plt Count 393 X10^3/uL (150.0-450.0) 01/25/25 04:18 Plt Count Comment Adequate (ADEQUATE) 01/25/25 04:18 MPV 7.8 fL (7.4-11.0) 01/25/25 04:18 Neut % (Auto) 72.2 % (42.0-75.0) 01/25/25 04:18 Lymph % (Auto) 4.3 % (21.0-51.0) L 01/25/25 04:18 [place] % (Auto) 21.2 % (0.0-13.0) H 01/25/25 04:18 Eos % (Auto) 1.8 % (0.9-2.9) 01/25/25 04:18 Baso % (Auto) 0.5 % (0.2-1.0) 01/25/25 04:18 Neut # (Auto) 6.0 x10^3/uL (2.2-4.8) H 01/25/25 04:18 Lymph # (Auto) 0.4 X10^3/uL (1.3-2.9) L 01/25/25 04:18 [place] # (Auto) 1.8 x10^3/uL (0.3-0.8) H 01/25/25 04:18 Eos # (Auto) 0.1 x10^3/uL (0.0-0.2) 01/25/25 04:18 Baso # (Auto) 0.0 X10^3/uL (0.0-0.1) 01/25/25 04:18 Absolute Nucleated RBC 0.0 /100WBC 01/25/25 04:18 Total Counted 100 01/25/25 04:18 Neutrophils % (Manual) 80 % (39-76) H 01/25/25 04:18 Lymphocytes % (Manual) 3 % (13-43) L 01/25/25 04:18 Monocytes % (Manual) 17 % (4-9) H 01/25/25 04:18 Eosinophils % (Manual) 1 % (0-6) 01/24/25 04:00 Plt Morphology Comment Normal (NORMAL) 01/25/25 04:18 RBC Morphology Abnormal (NORMAL) 01/25/25 04:18 Dimorphic RBCs Slight 01/24/25 04:00 Hypochromasia Slight A 01/25/25 04:18 Poikilocytosis Slight A 01/24/25 04:00 Anisocytosis 3+ A 01/25/25 04:18 Microcytosis Slight A 01/25/25 04:18 Target Cells Slight A 01/25/25 04:18 Cj Cells Slight A 01/24/25 04:00 Absolute Retic 0.0717 10^6/uL 01/23/25 10:00 Percent Retic 2.31 % (0.8-2.2) H 01/23/25 10:00 Sodium 137 mmol/L (136-145) 01/25/25 04:18 Corrected Sodium TNP 01/25/25 04:18 Potassium 4.0 mmol/L (3.5-5.1) 01/25/25 04:18 Chloride 104 mmol/L (98-107) 01/25/25 04:18 Carbon Dioxide 30.4 mmol/L (21-32) 01/25/25 04:18 BUN 11 mg/dL (7-18) 01/25/25 04:18 Creatinine 0.54 mg/dL (0.70-1.30) L 01/25/25 04:18 Est GFR (MDRD) Af Amer > 60 (>60) 01/25/25 04:18 Est GFR (MDRD) Non-Af > 60 (>60) 01/25/25 04:18 Glucose 89 mg/dL (65-99) 01/25/25 04:18 POC Glucose (mg/dL) 98 mg/dL (65-99) 01/24/25 04:32 Calcium 7.7 mg/dL (8.5-10.1) L 01/25/25 04:18 Corrected Calcium 10.1 mg/dL (8.5-10.1) 01/25/25 04:18 Iron 10 ug/dL (50-175) L 01/23/25 10:00 TIBC 100 ug/dL (250-450) L 01/23/25 10:00 Transferrin 101 mg/dL (202-364) L 01/23/25 10:00 Ferritin 534 ng/mL (26-388) H 01/23/25 10:00 Total Bilirubin 0.80 mg/dL (0.2-1.0) 01/25/25 04:18 AST 44 Units/L (15-37) H 01/25/25 04:18 ALT 24 Units/L (12-78) 01/25/25 04:18 Alkaline Phosphatase 316 Units/L (46-116) H 01/25/25 04:18 Total Protein 5.7 g/dL (6.4-8.2) L 01/25/25 04:18 Albumin 1.0 g/dL (3.4-5.0) L 01/25/25 04:18 Globulin 4.7 g/dL (2.5-4.5) H 01/25/25 04:18 Albumin/Globulin Ratio 0.2 Ratio (1.1-2.1) L 01/25/25 04:18 Amylase 51 Units/L (25-115) 01/23/25 10:00 Lipase 50 Units/L (16-77) 01/23/25 10:00 Vitamin B12 867 pg/mL (193-986) 01/23/25 10:00 Folate 4.8 ng/mL (>8.6) L 01/23/25 10:00 Specimen Type Clean catch urine 01/23/25 12:15 Urine Color [place] (YELLOW) 01/23/25 12:15 Urine Appearance Slightly hazy (CLEAR) 01/23/25 12:15 Urine pH 6.0 (5.0 - 8.0) 01/23/25 12:15 Ur Specific [place] 1.015 (1.000-1.030) 01/23/25 12:15 Urine Protein 2+ (NEGATIVE) 01/23/25 12:15 Urine Glucose (UA) Negative (NEGATIVE) 01/23/25 12:15 Urine Ketones Negative (NEGATIVE) 01/23/25 12:15 Urine Blood Negative (NEGATIVE) 01/23/25 12:15 Urine Nitrite Negative (NEGATIVE) 01/23/25 12:15 Urine Bilirubin Negative (NEGATIVE) 01/23/25 12:15 Urine Urobilinogen 3+ (NORMAL) 01/23/25 12:15 Ur Leukocyte Esterase 1+ (NEGATIVE) 01/23/25 12:15 Urine RBC 0-2 /HPF (0-3) 01/23/25 12:15 Urine WBC 0-2 /HPF (0-5) 01/23/25 12:15 Ur Squamous Epith Cells Rare /HPF (NEGATIVE) 01/23/25 12:15 Urine Bacteria Trace /HPF (NEGATIVE) 01/23/25 12:15 Hyaline Casts Few /LPF (NEGATIVE) 01/23/25 12:15 Urine Mucus Few /HPF (NEGATIVE) 01/23/25 12:15 Ur Culture Indicated? No/not indicated 01/23/25 12:15 Stool Occult Blood Positive (NEGATIVE) A 01/23/25 12:35 Stl Occult Blood (IFOB) Cancelled 01/23/25 12:15 Blood Type A NEGATIVE 01/23/25 12:36 Antibody Screen Negative 01/23/25 12:36 Crossmatch See Detail 01/23/25 12:36 Reason For Visit: ANEMIA, DIZZINESS, WEAKNESS, DEHYDRATION, Discharge Diagnosis All Active Problems (Updated 01/25/25 @ 02:36 by PAULO BARBER) Pressure ulcer (Acute) Atherosclerosis of [place] arteries of extremities with rest pain, left leg (Acute) Atherosclerosis of [place] arteries of extremities with rest pain, right leg (Acute) Abdominal pain (Acute) Chronic pancreatitis (Acute) Chronic back pain (Acute) Acute dehydration (Acute) Weakness generalized (Acute) Dizziness (Acute) GI bleeding (Acute) Symptomatic anemia (Acute) Contusion of leg, right (Acute) Closed tibia fracture (Acute) Degenerative joint disease of left hip (Acute) Contusion of hip, left (Acute) Testicular pain (Acute) Hepatitis C (Acute) Elevated alkaline phosphatase measurement (Acute) Elevated serum globulin level (Acute) Elevated ferritin (Acute) Folate deficiency (Acute) Abnormal drug screen (Acute) Acute chest wall pain (Acute) Left shoulder pain (Acute) Contusion of knee, right (Acute) Foot pain, right (Acute) Effusion of right knee (Acute) Flank pain (Acute) Lower back pain (Acute) Vomiting (Acute) Diarrhea (Acute) Anemia (Acute) Weight loss, non-intentional (Acute) Weakness (Acute) Acute pancreatitis (Acute) Open fracture of hand (Acute) Injury of extensor tendon of left hand (Acute) Hypertension (Chronic) Osteoarthritis (Acute) Hodgkin's lymphoma (Chronic) COPD (chronic obstructive pulmonary disease) (Chronic) Angina pectoris (Chronic) CAD (coronary artery disease) (Chronic) History of CVA (cerebrovascular accident) (Chronic) Plan of Treatment: Continue with present treatment and follow up plan. Pt is to keep follow up appointment as instructed and take medications as ordered. Discharge Medications Discharge Medications: No Known Drug Allergies Allergy (Unknown, Verified 01/02/23 12:13) CONTINUE taking the following medications aspirin 81 mg tablet 81 mg PO DAILY 01/23/25 [History] atorvastatin 80 mg tablet 80 mg PO QDAY 01/23/25 [History] Discharge Disposition Discharge Disposition: home Discharge Condition: stable Discharge Plan Discharge Plan Hospital Course: Mr. Ahumada is a 64-year-old male with a past medical history of anemia, thrombocytopenia, NHL, COPD, CAD, PAD, hypertension and hyperlipidemia presented with generalized weakness and AMS. ER workup showed hemoglobin 7.6, normal renal function. CT brain was negative for acute changes. CTAP showed moderate ascites and small effusions. FOBT was positive. He was admitted for further evaluation for anemia and blood transfusion. Dr. Choudhury was also consulted. Patient does see hematology for anemia and thrombocytopenia. He has had EGD and colonoscopies in the past. He was told to stop aspirin about 6 weeks ago and continue Plavix. He was transfused 3 units of PRBCs. He denied having any active bleeding. EGD was performed which was normal. Unable to do colonoscopy due to poor prep. He was tolerating diet and doing well. His labs are monitored daily and electrolytes replace as needed. He was having some leg pain and swelling. He does have a history of PAD with previous intervention. Arterial study showed occluded right superficial femoral artery and popliteal artery stent. Absent flow in the right posterior tibial artery. CTA was also done, see report. Patient was scheduled to have intervention the following day but he refused. He stated he would f/u with vascular outpatient. He was stable for discharge. His hemoglobin was 9.1. He will follow-up with PCP, GI and vascular outpatient. Patient Disposition: HOME HEALTH SERVICE Condition: Stable Health Concerns: Post Hospitalization: new medications and changes needed to prevent readmission or further decline. Pt educated and given instructions on all concerns. Care Plan Goals: Problem: Pain/Alteration in Comfort Goal: Improve/ Resolve Pain; Achieve Pain Tolerance Instructions: Take pain medications as prescribed. Contact your primary care provider if your pain is unrelieved or worsens. Follow up with primary care provider as directed. Plan of Treatment: Continue with present treatment and follow up plan. Pt is to keep follow up appointment as instructed and take medications as ordered. Prescription drug monitoring program results: PDMP reviewed and no concerns identified Prescriptions: Continued trazodone 150 mg tablet 300 mg PO HS Qty: 60 3RF pregabalin 150 mg capsule 150 mg PO Q8H PRN (Reason: Pain) 30 Days Qty: 90 0RF clopidogrel 75 mg tablet 75 mg PO QDAY oxycodone-acetaminophen 10-325 mg tablet 1 tab PO TID atorvastatin 80 mg tablet 80 mg PO QDAY aspirin 81 mg Tablet 81 mg PO DAILY Follow ups/Referrals Follow ups/Referrals: MIN MCMULLEN [REFERRING, Unknown] - 01/27/25 9:45 am Instructions Instructions: Upper Endoscopy, Care After, Endovascular Therapy for Peripheral Vascular Disease: What to Know After, Monitored Anesthesia Care, Care After Activity Restrictions/Additional Instructions: Please follow-up with primary care provider and vascular surgery as scheduled. Patient did have abnormal CT findings that need to be discussed with PCP and further workup done outpatient. Stand Alone Forms: Excuse From Work or School, Find Help Web Site, [facility] Follow Up Care Print Language: CITIZEN OF [place]
== END 2025-01-25 14:20 | disposition home health service (06) ==
LOC: ICU 09:53 → ER 09:53 → ICU 13:17
PROVIDERS: ADMIT Family Medicine; ATTEND Family Medicine
DX: R42 Dizziness and giddiness; I10 Essential (primary) hypertension; J44.9 Chronic obstructive pulmonary disease, unspecified; C81.90 Hodgkin lymphoma, unspecified, unspecified site; Z86.73 Personal history of transient ischemic attack (TIA), and cerebral infarction without residual deficits; B96.89 Other specified bacterial agents as the cause of diseases classified elsewhere; K92.1 Melena; D64.89 Other specified anemias; Z53.29 Procedure and treatment not carried out because of patient's decision for other reasons; R10.84 Generalized abdominal pain; M54.50 Low back pain, unspecified; L89.159 Pressure ulcer of sacral region, unspecified stage; I25.810 Atherosclerosis of coronary artery bypass graft(s) without angina pectoris; Z72.0 Tobacco use; I70.223 Atherosclerosis of native arteries of extremities with rest pain, bilateral legs; E87.1 Hypo-osmolality and hyponatremia; Z85.038 Personal history of other malignant neoplasm of large intestine; R16.1 Splenomegaly, not elsewhere classified; E86.0 Dehydration; R53.1 Weakness; F41.8 Other specified anxiety disorders